=== PATIENT | female | born 1955 | race Caucasian/White ===

== ENCOUNTER → 2019-01-26 09:04 | Outpatient (CLI) | payer OTHER, SELFPAY ==
[2019-01-26 09:26] LABS: Add Manual Diff / Slide Review NO; Basophils Absolute Auto 0 /uL (0-100); Basophils Percent Auto 0.9 % (0-2); Eosinophils Absolute Auto 300 /uL (0-450); Eosinophils Percent Auto 8.2 % (2-4); Hematocrit 35.1 % (36-46); Hemoglobin 12.1 g/dL (12.0-16.0); Lymphocytes Absolute Auto 1400 /uL (1100-4500); Lymphocytes Percent Auto 38.1 % (25-40); Mean Corpuscular HGB Conc 34.5 % (30-36); Mean Corpuscular Hemoglobin 30.9 PG (26-34); Mean Corpuscular Volume 89.8 fL (80-100); Monocytes Absolute Auto 400 /uL (0-900); Monocytes Percent Auto 9.6 % (3-14); Neutrophils Absolute Auto 1600 /uL (1500-7000); Neutrophils Percent Auto 43.2 % (50-75); Platelet Count 184 X10^3/uL (150-400); Red Cell Distribution Width 12.9 % (11.6-14.8); White Blood Cell Count 3.7 X10^3/uL (4.5-11.0)
[2019-01-26 09:57] LABS: HEMOLYSIS < 15 (0-50); Iron 142 ug/dL (37-170)
[2019-01-26 10:00] LABS: BUN Creatinine Ratio 24.3 (6-22); Blood Urea Nitrogen 17 mg/dL (7-17); Calcium 9.5 mg/dL (8.4-10.2); Carbon Dioxide 29 mmol/L (22-32); Chloride 99 mmol/L (98-107); Estimated Glomerular Filt Rate > 60.0 mL/min (>60); Glucose 93 mg/dL (80-110); HEMOLYSIS < 15 (0-50); Potassium 4.2 mmol/L (3.4-5.1); Sodium 136 mmol/L (137-145)
[2019-01-26 10:08] LABS: Percent Iron Saturation 49 % (15-50); Total Iron Binding Capacity 291 ug/dL (265-497); Transferrin 246 mg/dL (206-381)
== END ==
PROVIDERS: PCP Physician Assistant; Visit Provider Physician Assistant
DX: D50.9 Iron deficiency anemia, unspecified (principal); F55.8 Abuse of other non-psychoactive substances
CPT/HCPCS: 36415; 80048; 82728; 83540; 83550; 85025

== ENCOUNTER → 2019-02-05 09:50 | Outpatient (CLI) | payer OTHER, SELFPAY ==
--- NOTE | 2019-02-05 | DI.MG.S_ITS ---
BILATERAL DIGITAL SCREENING MAMMOGRAM 3D/2D WITH CAD: 02/05/2019 CLINICAL: Routine screening. Family history of breast cancer. Comparison is made to exams dated: 12/24/2017 mammogram, 11/21/2016 mammogram, and 10/12/2015 mammogram - [facility]. The tissue of both breasts is heterogeneously dense. This may lower the sensitivity of mammography. Current study was also evaluated with a Computer Aided Detection (CAD) system. No significant masses, calcifications, or other findings are seen in either breast. There has been no significant interval change. IMPRESSION: NEGATIVE There is no mammographic evidence of malignancy. A 1 year screening mammogram is recommended. This exam was interpreted at Station ID: [id number]. NOTE: For mammograms, a report in lay terms will be sent to the patient. Approximately 15% of breast malignancies will not be visualized mammographically. In the management of a palpable breast mass, a negative mammogram must not discourage biopsy of a clinically suspicious lesion. Electronically Signed By: Suman bethea/steffi:02/07/2019 08:37:49 letter sent: Normal Exam ACR BI-RADS Category 1: Negative [id number]
== END ==
PROVIDERS: PCP Physician Assistant; Visit Provider Physician Assistant
DX: Z12.31 Encounter for screening mammogram for malignant neoplasm of breast (principal); Z80.3 Family history of malignant neoplasm of breast
CPT/HCPCS: 77063; 77067

== ENCOUNTER 2019-12-13 08:15 | Outpatient (RCR) | payer OTHER, SELFPAY ==
--- NOTE | 2019-07-12 15:46 | PT.OIE ---
Current Diagnoses Radiculopathy, lumbar region (07/12/19) Encounter for surgical aftercare following surgery on the nervous system (07/12/19) Past Surgical History Status post surgery (07/21/09) Visit Care Team Role Provider Type Erinn Gresham PA-C Primary Care Provider Advanced Java Web User Interface Developer Specialty: Medical Address: [facility] [place] [address], [address], [place], [address] Email: [email or web address] Lin Armijo PA-C Attending Provider Non-Staff Specialty: Nursing Address: [address] [place] [address], [address], [place], [address] Email: Physical Therapy Initial Evaluation PT-OP-A Visit Information Start: 07/12/19 13:55 Freq: Status: Active Protocol: Document 07/12/19 13:00 (Rec: 07/12/19 14:30 [email or web address]) Out-Patient Physical Therapy Visit Information Visit Information Visit Type Initial Evaluation Visit Note Pt's next MD appointment = Visit Start Time 13:00 Visit Stop Time 13:45 Total Visit Minutes 45 Visit Number Number of LENS GRINDER Visits 0 Evaluation Information Evaluation Date 07/12/19 Precautions Precautions LATEX ALLERGY L frozen shoulder No Bending Lifting Twisting for 6 weeks (06/02), log roll for bed mobility PT-OP-B Current Condition Start: 07/12/19 13:55 Freq: Status: Active Protocol: Document 07/12/19 13:00 (Rec: 07/12/19 14:30 [email or web address]) Current Condition History of Current Condition Onset Date Jun 02, 2019 Current Complaints s/p R L1-L2 partial laminectomy, LBP, radiating pain to R LE History of Current Condition Pt is a 64 yo female who presents to clinic today s/p s /p R L1-L2 partial laminectomy on 06/02/19 (5 1/2 weeks ago) at with Dr. Alonso. Pt currently follows do deep bending/ twisting/ heavy lifting until 6 weeks post op. Pt stated her back pain and radiating RLE pain started from this December after she was lifting a ~60lbs object by twisting her back without taking steps. She is currently having ~7/10 pain in a daily basis which aggravated by staying in one position ( standing/sitting) for >15 mins . Changing position usually helps her symptoms but it affects her ability to focus on her current task at work. Pt does know all precautions and able to follow them safely since sx. She is currently in a transition to reduce her pain med from oxycodone (daily ) to tramadol. She also has hx of chronic LBP with L4-L5 fusion in 2014, and she stated that Dr. Alonso suggested she might need another back surgery if this one with PT fails Future Testing and Treatments Planned Dr. Alonso suggested she might need another back surgery if this one with PT fails Treatment Goals Patient/Caregiver Goals 1. 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 To improve her core strength 3. 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 To be able to sail with her boat without pain. Prior Functional Status Baseline Function- ADL's Independent Baseline Function- Mobility Independent Baseline Function- Work/School able to sit/stand >1 hour Baseline Function- Recreation/Hobbies able to lift objects > 50 lbs without pain Current Functional Impairments (Reported) Functional Limitations- ADL's No Bending Lifting Twisting for 6 weeks (06/02), log roll for bed mobility Functional Limitations- Work/School unable to sit / stand > 15 minutes without increased pain Functional Limitations- Recreation/ unable to sail due to LBP/ Hobbies gardening PT-OP-C Subjective Start: 07/12/19 13:55 Freq: Status: Active Protocol: Document 07/12/19 13:00 (Rec: 07/12/19 14:30 [email or web address]) OP-PT Subjective Patient Comments Patient Comments I want to get my core stronger Patient Questionnaires Oswestry Low Back Index Oswestry Score 56 Oswestry Impairment 40 to 59% Impaired (Score 40- 59) OP-PT Pain Assessment Location R lower back Intensity 6 Scale Used Numeric (1 - 10) Description Aching,Dull Frequency Constant Pain Aggravating Factors Standing,Sitting,Bending, Lifting Pain Alleviating Factors Inactivity,Lying Supine PT-OP-D Balance Start: 07/12/19 13:55 Freq: Status: Active Protocol: Document 07/12/19 13:00 (Rec: 07/12/19 14:30 HH [email or web address]) Balance Tests Single Limb Standing Single Limb- Right >30 s Single Limb- Left >30 s Other Other Balance Tests Performed increase R lateral shift and increased R leg pain during SLS on R PT-OP-E Functional Tests Start: 07/12/19 13:55 Freq: Status: Active Protocol: Document 07/12/19 13:00 HH (Rec: 07/12/19 15:46 HH [email or web address]) Functional Tests Five Times Sit to Stand Test Score 21 PT-OP-F Manual Assessment Start: 07/12/19 13:55 Freq: Status: Active Protocol: Document 07/12/19 13:00 HH (Rec: 07/12/19 14:30 HH [email or web address]) Manual Assessments Soft Tissue Assessment Soft Tissue Mobility Assessment significant tenderness to pressure below R SIJ and piriformis PT-OP-H Neuro Start: 07/12/19 13:55 Freq: Status: Active Protocol: Document 07/12/19 13:00 HH (Rec: 07/12/19 14:30 [email or web address]) Sensation Evaluation Gross Sensation Gross Sensation Right LE Impaired Dermatome Impairments L5,S1 Comments Summary Comments decreased sensation to LT and pressure at lateral lower leg and R big toe. Deep Tendon Reflex & Clonus Assessment Deep Tendon Reflex Bilateral Achilles Deep Tendon Reflex 1+ Diminished Bilateral Patellar Deep Tendon Reflex 1+ Diminished PT-OP-J Posture/Palpation/Skin Start: 07/12/19 13:55 Freq: Status: Active Protocol: Document 07/12/19 13:00 HH (Rec: 07/12/19 14:30 [email or web address]) Posture Evaluation Position Standing Evaluation View Lateral T-Spine Posture Increased Kyphosis L-Spine Posture Increased Lordosis Weight Distribution Weight Shifted Anterior PT-OP-M Strength Start: 07/12/19 13:55 Freq: Status: Active Protocol: Document 07/12/19 13:00 HH (Rec: 07/12/19 14:30 [email or web address]) Hip Strength Hip Manual Muscle Testing Left Flexion (L2) 4+ Good+ Extension (S1) 4 Good Abduction 4+ Good+ Adduction 4+ Good+ External Rotation 4+ Good+ Internal Rotation 4+ Good+ Right Flexion (L2) 4- Good- Extension (S1) 3+ Fair+ Abduction 3+ Fair+ Adduction 4 Good External Rotation 3+ Fair+ Internal Rotation 3+ Fair+ Knee Strength Knee Manual Muscle Testing Left Flexion (S2) 4+ Good+ Extension (L3) 4+ Good+ Right Flexion (S2) 3+ Fair+ Extension (L3) 4 Good Comments increased R back pain during resisted R knee flexion Ankle/Foot Strength Ankle and Foot Manual Muscle Testing Left Dorsiflexion (L4) 4+ Good+ Plantarflexion (S1) 4+ Good+ Inversion 4+ Good+ Eversion (S1) 4+ Good+ Right Dorsiflexion (L4) 4- Good- Plantarflexion (S1) 4- Good- Inversion 4 Good Eversion (S1) 4 Good PT-OP-T Assessment and Plan Start: 07/12/19 13:55 Freq: Status: Active Protocol: Document 07/12/19 13:00 HH (Rec: 07/12/19 14:30 HH [email or web address]) Physical Therapy Assessment Rehab Potential Rehabilitation Potential Good Evaluation Complexity Number of Personal Factors/Comorbidities 1-2 Number of Body Systems Impaired 1-2 Clinical Presentation at Evaluation Stable Impairments Impairments Activity Tolerance,Balance, Functional Activities, Functional Mobility,Gait,Pain, Posture,ROM,Sensation,Soft Tissue Mobility,Strength,Tone, Transfers Goals Return to hobby Impairment Pt is currently unable to do gardening work due to LBP Short Term Goal (STG) Pt will be able to start gardening >10 mins without increased LBP. STG Duration 5 weeks Shelter Goal (LTG) Pt will be able to start gardening >20 mins without increased LBP. 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 LTG Duration 10 weeks activity tolerance Impairment Pt has increased LBP with sitting/ standing >15 mins Short Term Goal (STG) Pt will have no more than >5/ 10 LBP for sitting/ standing > 15 mins STG Duration 5 weeks Automatic Folder Seamer Goal (LTG) Pt will have no more than >3/ 10 LBP for sitting/ standing > 30 mins LTG Duration 10 weeks Oswestry LBP Impairment Pt scores 56 (40-59% impairment) on Oswestry LBP questionnaire Short Term Goal (STG) Pt will score <40 (20-39% impairment) on Oswestry LBP questionnaire Shelter Goal (LTG) Pt will score <20 (1-19% impairment) on Oswestry LBP questionnaire to improve her quality of life LTG Duration 10 weeks Assessment Summary Assessment Pt is a 64 yo female who presents to clinic today s/p R L1-L2 partial laminectomy on 06/02/[address] Alonso . She also has hx of chronic LBP with L4-L5 fusion in 2014. Pt is currently post op 5 1/2 weeks and still follows post op surgical precaution with no deep bending, lifting and twisting. Pt is going to see his surgeon on 07/14 for follow up. Upon assessment, pt still c/o radiating pain to lateral aspect of her RLE and localized pain below R SIJ. Decreased sensitivity to light touch and pressure noted at distal L5-S1 dermatome region, along with decreased R LE strength (3+ to 4-) grossly. Pt demonstrates poor hip stability during single leg stance test (with excessively lateral weight shift and ipsilateral hip drop). Pt's back pain was also reproduced during active straight leg raise and hip extension which indicates her poor trunk and core stability. Pt will benefit from skilled therapy to improve her trunk mobility post surgically, R LE strength , core and trunk stability to improve her quality of life. Physical Therapy Plan Frequency and Duration Frequency of Treatment 2x/Week Duration of Treatment 10 weeks Plan of Care Start Date 07/12/19 Plan of Care End Date 09/25/19 Therapeutic Interventions Therapeutic Interventions Balance Training,Gait Training ,Home Exercise Program,Joint Mobilizations,Manual Therapy, Neuromuscular Re-education, Patient/Caregiver Education, Self-Care/Home Management,Soft Tissue Mobilization,Taping, Therapeutic Activities, Therapeutic Exercises Modalities Cold Pack/Ice Massage,Electric Stimulation,Hot Packs, Infrared Therapy,Iontophoresis ,Traction- Mechanical, Ultrasound Next Visit Focus/Plan Next Note Type Treatment Note Next Visit Plan f/u with pt's appt with surgeon check hip IR and ER assess trunk ROM next visit ( >6 weeks) gentle trunk ROM as cesia B hip stability training and strengthening as cesia NM layton on core stability during single leg stance.
--- NOTE | 2019-07-20 17:36 | PT.OTN ---
Current Diagnoses Radiculopathy, lumbar region (07/20/19) Encounter for surgical aftercare following surgery on the nervous system (07/20/19) Physical Therapy Treatment Note PT-OP-A Visit Information Start: 07/12/19 13:55 Freq: Status: Active Protocol: Document 07/20/19 16:50 DCW (Rec: 07/20/19 17:35 DCW [id number]) Out-Patient Physical Therapy Visit Information Visit Information Visit Type Treatment Note Visit Start Time 16:50 Visit Stop Time 17:40 Total Visit Minutes 50 Visit Number 2/54 Number of RAILCAR SWITCHER Visits 0 Evaluation Information Evaluation Date 07/12/19 Precautions Precautions LATEX ALLERGY L frozen shoulder No Bending Lifting Twisting for 6 weeks (06/02), log roll for bed mobility PT-OP-B Current Condition Start: 07/12/19 13:55 Freq: Status: Active Protocol: Document 07/12/19 13:00 HH (Rec: 07/12/19 14:30 HH [email or web address]) Current Condition History of Current Condition Onset Date Jun 02, 2019 Current Complaints s/p R L1-L2 partial laminectomy, LBP, radiating pain to R LE History of Current Condition Pt is a 64 yo female who presents to clinic today s/p s /p R L1-L2 partial laminectomy on 06/02/19 (5 1/2 weeks ago) at with Dr. Alonso. Pt currently follows do deep bending/ twisiting/ heavy lifting until 6 weeks post op. Pt stated her back pain and radiating RLE pain started from this December after she was lifting a ~60lbs object by twisting her back without taking steps. She is currently having ~7/10 pain in a daily basis which aggravated by staying in one position ( standing/sitting) for >15 mins . Changing position usually helps her symptoms but it affects her ability to focus on her current task at work. Pt does know all precautions and able to follow them safely since sx. She is currently in a tansitiont to reduce her pain med from oxycodone (daily ) to tramadol. She also has hx of chronic LBP with L4-L5 fusion in 2014, and she stated that Dr. Alonso suggested she might need another back surgery if this one with PT fails Future Testing and Treatments Planned Dr. Alonso suggested she might need another back surgery if this one with PT fails Treatment Goals Patient/Caregiver Goals 1. 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 To be able to sail with her boat without pain. Prior Functional Status Baseline Function- ADL's Independent Baseline Function- Mobility Independent Baseline Function- Work/School able to sit/stand >1 hour Baseline Function- Recreation/Hobbies able to lift objects > 50 lbs without pain Current Functional Impairments (Reported) Functional Limitations- ADL's No Bending Lifting Twisting for 6 weeks (06/02), log roll for bed mobility Functional Limitations- Work/School unable to sit / stand > 15 minutes without increased pain Functional Limitations- Recreation/ unable to sail due to LBP/ Hobbies gardening PT-OP-C Subjective Start: 07/12/19 13:55 Freq: Status: Active Protocol: Document 07/20/19 16:50 DCW (Rec: 07/20/19 17:35 DCW [id number]) OP-PT Subjective Patient Comments Patient Comments Pt reports she was sore at her follow-up appointment with her Ortho, admits that they weren't happy that she was back to work and she was doing too much. Still having pain down her right foot, notes that she was put on 4 days of bedrest, and was told to not let her PTs overdo it with her. PT-OP-D Balance Start: 07/12/19 13:55 Freq: Status: Active Protocol: Document 07/12/19 13:00 HH (Rec: 07/12/19 14:30 HH [email or web address]) Balance Tests Single Limb Standing Single Limb- Right >30 s Single Limb- Left >30 s Other Other Balance Tests Performed increase R lateral shift and increased R leg pain during SLS on R PT-OP-E Functional Tests Start: 07/12/19 13:55 Freq: Status: Active Protocol: Document 07/12/19 13:00 HH (Rec: 07/12/19 15:46 HH [email or web address]) Functional Tests Five Times Sit to Stand Test Score 21 PT-OP-F Manual Assessment Start: 07/12/19 13:55 Freq: Status: Active Protocol: Document 07/12/19 13:00 HH (Rec: 07/12/19 14:30 HH [email or web address]) Manual Assessments Soft Tissue Assessment Soft Tissue Mobility Assessment significant tenderness to pressure below R SIJ and piriformis PT-OP-H Neuro Start: 07/12/19 13:55 Freq: Status: Active Protocol: Document 07/12/19 13:00 HH (Rec: 07/12/19 14:30 HH [email or web address]) Sensation Evaluation Gross Sensation Gross Sensation Right LE Impaired Dermatome Impairments L5,S1 Comments Summary Comments decreased sensation to LT and pressure at lateral lower leg and R big toe. Deep Tendon Reflex & Clonus Assessment Deep Tendon Reflex Bilateral Achilles Deep Tendon Reflex 1+ Diminished Bilateral Patellar Deep Tendon Reflex 1+ Diminished PT-OP-J Posture/Palpation/Skin Start: 07/12/19 13:55 Freq: Status: Active Protocol: Document 07/12/19 13:00 HH (Rec: 07/12/19 14:30 HH [email or web address]) Posture Evaluation Position Standing Evaluation View Lateral T-Spine Posture Increased Kyphosis L-Spine Posture Increased Lordosis Weight Distribution Weight Shifted Anterior PT-OP-M Strength Start: 07/12/19 13:55 Freq: Status: Active Protocol: Document 07/12/19 13:00 HH (Rec: 07/12/19 14:30 HH [email or web address]) Hip Strength Hip Manual Muscle Testing Left Flexion (L2) 4+ Good+ Extension (S1) 4 Good Abduction 4+ Good+ Adduction 4+ Good+ External Rotation 4+ Good+ Internal Rotation 4+ Good+ Right Flexion (L2) 4- Good- Extension (S1) 3+ Fair+ Abduction 3+ Fair+ Adduction 4 Good External Rotation 3+ Fair+ Internal Rotation 3+ Fair+ Knee Strength Knee Manual Muscle Testing Left Flexion (S2) 4+ Good+ Extension (L3) 4+ Good+ Right Flexion (S2) 3+ Fair+ Extension (L3) 4 Good Comments increased R back pain during resisted R knee flexion Ankle/Foot Strength Ankle and Foot Manual Muscle Testing Left Dorsiflexion (L4) 4+ Good+ Plantarflexion (S1) 4+ Good+ Inversion 4+ Good+ Eversion (S1) 4+ Good+ Right Dorsiflexion (L4) 4- Good- Plantarflexion (S1) 4- Good- Inversion 4 Good Eversion (S1) 4 Good PT-OP-Q Treatments Start: 07/12/19 13:55 Freq: Status: Active Protocol: Document 07/20/19 16:50 DCW (Rec: 07/20/19 17:35 DCW [id number]) Cardio Equipment Recumbent Elliptical (Biodex) Duration (Minutes) 5 Resistance 4 Seat Position 9 Gym Equipment Shuttle Recovery Unilateral Squats Resistance 37# Shuttle Recovery Platform Stable Bilateral Squats Resistance 75# Shuttle Recovery Platform Stable Therapeutic Ball Hip Flexion/Extension Exercise Details Hip/Knee flexion and extension /c feet on ball Ball Size/Color Blue - 45 cm Body Position Supine Lower Trunk Rotation Exercise Details Lower trunk rotation Ball Size/Color Blue - 45 cm Body Position Supine Comments Minimal Therapeutic Exercises Supine Exercises Piriformis Stretch Supine Exercise Name Mkiy-fh-qiehreqy shoulder Side right Comments Stopped d/t leg tingling PPT /c Marching Supine Exercise Name PPT /c TrA contraction - Marching PPT /c TrA Supine Exercise Name PPT /c TrA contraction Reps/Minutes 5 hold PT-OP-R Modalities Start: 07/12/19 13:55 Freq: Status: Active Protocol: Document 07/20/19 16:50 DCW (Rec: 07/20/19 17:36 DCW [id number]) Electric Stimulation Electric Stimulation Functional Electric Stimulation Body Location Lumbar Spine Duration (Minutes) 15 Patient Position Hooklying Combined With Heat/Cold Hot Pack PT-OP-T Assessment and Plan Start: 07/12/19 13:55 Freq: Status: Active Protocol: Document 07/20/19 16:50 DCW (Rec: 07/20/19 17:35 DCW [id number]) Physical Therapy Assessment Impairments Impairments Activity Tolerance,Balance, Functional Activities, Functional Mobility,Gait,Pain, Posture,ROM,Sensation,Soft Tissue Mobility,Strength,Tone, Transfers Goals Return to hobby Impairment Pt is currently unable to do gardening work due to LBP Short Term Goal (STG) Pt will be able to start gardening >10 mins without increased LBP. STG Duration 5 weeks [facility] Goal (LTG) Pt will be able to start gardening >20 mins without increased LBP. LTG Duration 10 weeks strength Impairment Pt demonstrates significant R LE weakness Short Term Goal (STG) Pt will be able to improve her RLE strength by 1/2 MMT grade [facility] Goal (LTG) Pt will be able to improve her overall RLE strength by 1 MMT grade so she can bend over to nut picker object >20 lbs from low surface without increased pain. LTG Duration 10 weeks activity tolerance Impairment Pt has increased LBP with sitting/ standing >15 mins Short Term Goal (STG) Pt will have no more than >5/ 10 LBP for sitting/ standing > 15 mins STG Duration 5 weeks [facility] Goal (LTG) Pt will have no more than >3/ 10 LBP for sitting/ standing > 30 mins LTG Duration 10 weeks Oswestry LBP Impairment Pt scores 56 (40-59% impairment) on Oswestry LBP questionnaire Short Term Goal (STG) Pt will score <40 (20-39% impairment) on Oswestry LBP questionnaire Lens Grinder And Polisher Goal (LTG) Pt will score <20 (1-19% impairment) on Oswestry LBP questionnaire to improve her quality of life LTG Duration 10 weeks Assessment Summary Assessment Took it very easy on pt today per instructions fromher surgeon. Attempted mild core strengthening and mobility exercises. Physical Therapy Plan Frequency and Duration Frequency of Treatment 2x/Week Duration of Treatment 10 weeks Plan of Care Start Date 07/12/19 Plan of Care End Date 09/25/19 Therapeutic Interventions Therapeutic Interventions Balance Training,Gait Training ,Home Exercise Program,Joint Mobilizations,Manual Therapy, Neuromuscular Re-education, Patient/Caregiver Education, Self-Care/Home Management,Soft Tissue Mobilization,Taping, Therapeutic Activities, Therapeutic Exercises Modalities Cold Pack/Ice Massage,Electric Stimulation,Hot Packs, Infrared Therapy,Iontophoresis ,Traction- Mechanical, Ultrasound Next Visit Focus/Plan Next Note Type Treatment Note Next Visit Plan check hip IR and ER assess trunk ROM next visit ( >6 weeks) gentle trunk ROM as cesia B hip stability training and strengthening as cesia NM layton on core stability during single leg stance.
--- NOTE | 2019-07-27 15:28 | PT.OTN ---
Current Diagnoses Radiculopathy, lumbar region (07/27/19) Encounter for surgical aftercare following surgery on the nervous system (07/27/19) Physical Therapy Treatment Note PT-OP-A Visit Information Start: 07/12/19 13:55 Freq: Status: Active Protocol: Document 07/27/19 13:00 HH (Rec: 07/27/19 14:10 [id number]) Out-Patient Physical Therapy Visit Information Visit Information Visit Type Treatment Note Visit Start Time 13:00 Visit Stop Time 13:46 Total Visit Minutes 46 Visit Number 3/54 Number of CIVIL PROJECT ENGINEER Visits 0 PT-OP-B Current Condition Start: 07/12/19 13:55 Freq: Status: Active Protocol: Document 07/12/19 13:00 HH (Rec: 07/12/19 14:30 [email or web address]) Current Condition History of Current Condition Onset Date Jun 02, 2019 Current Complaints s/p R L1-L2 partial laminectomy, LBP, radiating pain to R LE History of Current Condition Pt is a 64 yo female who presents to clinic today s/p s /p R L1-L2 partial laminectomy on 06/02/19 (5 1/2 weeks ago) at with Dr. Alonso. Pt currently follows do deep bending/ twisiting/ heavy lifting until 6 weeks post op. Pt stated her back pain and radiating RLE pain started from this December after she was lifting a ~60lbs object by twisting her back without taking steps. She is currently having ~7/10 pain in a daily basis which aggravated by staying in one position ( standing/sitting) for >15 mins . Changing position usually helps her symptoms but it affects her ability to focus on her current task at work. Pt does know all precautions and able to follow them safely since sx. She is currently in a tansitiont to reduce her pain med from oxycodone (daily ) to tramadol. She also has hx of chronic LBP with L4-L5 fusion in 2014, and she stated that Dr. Alonso suggested she might need another back surgery if this one with PT fails Future Testing and Treatments Planned Dr. Alonso suggested she might need another back surgery if this one with PT fails Treatment Goals Patient/Caregiver Goals 1. 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 To improve her core strength 3. To sit/training associate one positiont > 15 mins without increased pain 4. To be able to sail with her boat without pain. Prior Functional Status Baseline Function- ADL's Independent Baseline Function- Mobility Independent Baseline Function- Work/School able to sit/stand >1 hour Baseline Function- Recreation/Hobbies able to lift objects > 50 lbs without pain Current Functional Impairments (Reported) Functional Limitations- ADL's No Bending Lifting Twisting for 6 weeks (06/02), log roll for bed mobility Functional Limitations- Work/School unable to sit / stand > 15 minutes without increased pain Functional Limitations- Recreation/ unable to sail due to LBP/ Hobbies gardening PT-OP-C Subjective Start: 07/12/19 13:55 Freq: Status: Active Protocol: Document 07/27/19 13:00 HH (Rec: 07/27/19 14:10 [id number]) OP-PT Subjective Patient Comments Patient Comments I still have some tingling and numbness down to my R foot . My work has been modified to less physical now as well. So im doing okay PT-OP-D Balance Start: 07/12/19 13:55 Freq: Status: Active Protocol: Document 07/12/19 13:00 HH (Rec: 07/12/19 14:30 [email or web address]) Balance Tests Single Limb Standing Single Limb- Right >30 s Single Limb- Left >30 s Other Other Balance Tests Performed increase R lateral shift and increased R leg pain during SLS on R PT-OP-E Functional Tests Start: 07/12/19 13:55 Freq: Status: Active Protocol: Document 07/12/19 13:00 HH (Rec: 07/12/19 15:46 [email or web address]) Functional Tests Five Times Sit to Stand Test Score 21 PT-OP-F Manual Assessment Start: 07/12/19 13:55 Freq: Status: Active Protocol: Document 07/12/19 13:00 HH (Rec: 07/12/19 14:30 [email or web address]) Manual Assessments Soft Tissue Assessment Soft Tissue Mobility Assessment significant tenderness to pressure below R SIJ and piriformis PT-OP-H Neuro Start: 07/12/19 13:55 Freq: Status: Active Protocol: Document 07/12/19 13:00 HH (Rec: 07/12/19 14:30 [email or web address]) Sensation Evaluation Gross Sensation Gross Sensation Right LE Impaired Dermatome Impairments L5,S1 Comments Summary Comments decreased sensation to LT and pressure at lateral lower leg and R big toe. Deep Tendon Reflex & Clonus Assessment Deep Tendon Reflex Bilateral Achilles Deep Tendon Reflex 1+ Diminished Bilateral Patellar Deep Tendon Reflex 1+ Diminished PT-OP-J Posture/Palpation/Skin Start: 07/12/19 13:55 Freq: Status: Active Protocol: Document 07/12/19 13:00 (Rec: 07/12/19 14:30 [email or web address]) Posture Evaluation Position Standing Evaluation View Lateral T-Spine Posture Increased Kyphosis L-Spine Posture Increased Lordosis Weight Distribution Weight Shifted Anterior PT-OP-M Strength Start: 07/12/19 13:55 Freq: Status: Active Protocol: Document 07/12/19 13:00 (Rec: 07/12/19 14:30 [email or web address]) Hip Strength Hip Manual Muscle Testing Left Flexion (L2) 4+ Good+ Extension (S1) 4 Good Abduction 4+ Good+ Adduction 4+ Good+ External Rotation 4+ Good+ Internal Rotation 4+ Good+ Right Flexion (L2) 4- Good- Extension (S1) 3+ Fair+ Abduction 3+ Fair+ Adduction 4 Good External Rotation 3+ Fair+ Internal Rotation 3+ Fair+ Knee Strength Knee Manual Muscle Testing Left Flexion (S2) 4+ Good+ Extension (L3) 4+ Good+ Right Flexion (S2) 3+ Fair+ Extension (L3) 4 Good Comments increased R back pain during resisted R knee flexion Ankle/Foot Strength Ankle and Foot Manual Muscle Testing Left Dorsiflexion (L4) 4+ Good+ Plantarflexion (S1) 4+ Good+ Inversion 4+ Good+ Eversion (S1) 4+ Good+ Right Dorsiflexion (L4) 4- Good- Plantarflexion (S1) 4- Good- Inversion 4 Good Eversion (S1) 4 Good PT-OP-Q Treatments Start: 07/12/19 13:55 Freq: Status: Active Protocol: Document 07/27/19 13:00 (Rec: 07/27/19 14:10 [id number]) Cardio Equipment Recumbent Stepper (Sci-Fit) Duration (Minutes) 6 Resistance 2 Therapeutic Exercises Supine Exercises Figure 4 stretch Side right Comments stopped d/t leg tingling Piriformis Stretch Supine Exercise Name Wsil-go-ncfjugkp shoulder Side right PPT /c Marching Supine Exercise Name PPT /c TrA contraction - Marching PPT /c TrA Supine Exercise Name PPT /c TrA contraction Reps/Minutes 5 hold Sitting Exercises Ball reach Side bilateral Equipment Used red ex ball Reps/Minutes 3x10 Comments R/L/central Standing Exercises step up Side bilateral Reps/Minutes 3 min Comments no significant deficits noted. SLS Standing Exercise Name as long as possible Side bilateral Reps/Minutes 30 sec B Comments no deficits noted. Manual Therapy Treatment Soft Tissue Mobilization R paraspinals Mobilization Type Sustained Pressure,Trigger Point Release Intensity/Depth Superficial Body Position Sidelying R piriformis Mobilization Type Sustained Pressure,Trigger Point Release Intensity/Depth Superficial Body Position Sidelying Comments with active clam shell Nerve Glides supine sciatic nerve glide Nerve sciatic nerve Body Position Supine Reps/Duration 10 x2 Comments knee extension only before symptoms worsened. PT-OP-R Modalities Start: 07/12/19 13:55 Freq: Status: Active Protocol: Document 07/27/19 13:00 HH (Rec: 07/27/19 14:10 [id number]) Electric Stimulation Electric Stimulation Functional Electric Stimulation Body Location Lumbar Spine Duration (Minutes) 15 Patient Position Hooklying Combined With Heat/Cold Hot Pack PT-OP-T Assessment and Plan Start: 07/12/19 13:55 Freq: Status: Active Protocol: Document 07/27/19 13:00 HH (Rec: 07/27/19 14:10 [id number]) Physical Therapy Assessment Impairments Impairments Activity Tolerance,Balance, Functional Activities, Functional Mobility,Gait,Pain, Posture,ROM,Sensation,Soft Tissue Mobility,Strength,Tone, Transfers Goals Return to hobby Impairment Pt is currently unable to do gardening work due to LBP Short Term Goal (STG) Pt will be able to start gardening >10 mins without increased LBP. STG Duration 5 weeks Wire Mesh Gate Assembler Goal (LTG) Pt will be able to start gardening >20 mins without increased LBP. LTG Duration 10 weeks strength Impairment Pt demonstrates significant R LE weakness Short Term Goal (STG) Pt will be able to improve her RLE strength by 1/2 MMT grade Wire Mesh Gate Assembler Goal (LTG) Pt will be able to improve her overall RLE strength by 1 MMT grade so she can bend over to brick picker object >20 lbs from low surface without increased pain. LTG Duration 10 weeks activity tolerance Impairment Pt has increased LBP with sitting/ standing >15 mins Short Term Goal (STG) Pt will have no more than >5/ 10 LBP for sitting/ standing > 15 mins STG Duration 5 weeks Penitentiary Goal (LTG) Pt will have no more than >3/ 10 LBP for sitting/ standing > 30 mins LTG Duration 10 weeks Oswestry LBP Impairment Pt scores 56 (40-59% impairment) on Oswestry LBP questionnaire Short Term Goal (STG) Pt will score <40 (20-39% impairment) on Oswestry LBP questionnaire Penitentiary Goal (LTG) Pt will score <20 (1-19% impairment) on Oswestry LBP questionnaire to improve her quality of life LTG Duration 10 weeks Assessment Summary Assessment Pt reports cont R toe tingling and pain that goes up towards knee. Also notes cont R buttock pain with prolonged sitting and WB on RLE. Pt notes inc'd tingling during MT to address piriformis trigger point. Piriformis hypertonicity likely driving pt's cont complaint of R sciatic nerve irritation. HEP upgraded to include sciatic nerve glide, gentle piriformis stretch, and ball reaches to decrease sciatic nerve irritability. Physical Therapy Plan Frequency and Duration Frequency of Treatment 2x/Week Duration of Treatment 10 weeks Plan of Care Start Date 07/12/19 Plan of Care End Date 09/25/19 Therapeutic Interventions Therapeutic Interventions Balance Training,Gait Training ,Home Exercise Program,Joint Mobilizations,Manual Therapy, Neuromuscular Re-education, Patient/Caregiver Education, Self-Care/Home Management,Soft Tissue Mobilization,Taping, Therapeutic Activities, Therapeutic Exercises Modalities Cold Pack/Ice Massage,Electric Stimulation,Hot Packs, Infrared Therapy,Iontophoresis ,Traction- Mechanical, Ultrasound Next Visit Focus/Plan Next Note Type Treatment Note Next Visit Plan check hip IR and ER assess trunk ROM next visit ( >6 weeks) review HEP gentle trunk ROM ex in seated position/ supine/ SL B hip stability training and strengthening as cesia NM layton on core stability during single leg stance MT for piriformis TrP/ hypertonicity
--- NOTE | 2019-07-29 09:44 | PT.OTN ---
Current Diagnoses Radiculopathy, lumbar region (07/29/19) Encounter for surgical aftercare following surgery on the nervous system (07/29/19) Physical Therapy Treatment Note PT-OP-A Visit Information Start: 07/12/19 13:55 Freq: Status: Active Protocol: Document 07/29/19 09:00 DCW (Rec: 07/29/19 09:43 DCW [id number]) Out-Patient Physical Therapy Visit Information Visit Information Visit Type Treatment Note Visit Start Time 09:00 Visit Stop Time 09:55 Total Visit Minutes 55 Visit Number 4/54 Number of BELT OPERATOR Visits 0 Evaluation Information Evaluation Date 07/12/19 Precautions Precautions LATEX ALLERGY L frozen shoulder No Bending Lifting Twisting for 6 weeks (06/02), log roll for bed mobility PT-OP-B Current Condition Start: 07/12/19 13:55 Freq: Status: Active Protocol: Document 07/12/19 13:00 HH (Rec: 07/12/19 14:30 HH [email or web address]) Current Condition History of Current Condition Onset Date Jun 02, 2019 Current Complaints s/p R L1-L2 partial laminectomy, LBP, radiating pain to R LE History of Current Condition Pt is a 64 yo female who presents to clinic today s/p s /p R L1-L2 partial laminectomy on 06/02/19 (5 1/2 weeks ago) at with Dr. Alonso. Pt currently follows do deep bending/ twisiting/ heavy lifting until 6 weeks post op. Pt stated her back pain and radiating RLE pain started from this December after she was lifting a ~60lbs object by twisting her back without taking steps. She is currently having ~7/10 pain in a daily basis which aggravated by staying in one position ( standing/sitting) for >15 mins . Changing position usually helps her symptoms but it affects her ability to focus on her current task at work. Pt does know all precautions and able to follow them safely since sx. She is currently in a tansitiont to reduce her pain med from oxycodone (daily ) to tramadol. She also has hx of chronic LBP with L4-L5 fusion in 2014, and she stated that Dr. Alonso suggested she might need another back surgery if this one with PT fails Future Testing and Treatments Planned Dr. Alonso suggested she might need another back surgery if this one with PT fails Treatment Goals Patient/Caregiver Goals 1. 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 To improve her core strength 3. 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 To be able to sail with her boat without pain. Prior Functional Status Baseline Function- ADL's Independent Baseline Function- Mobility Independent Baseline Function- Work/School able to sit/stand >1 hour Baseline Function- Recreation/Hobbies able to lift objects > 50 lbs without pain Current Functional Impairments (Reported) Functional Limitations- ADL's No Bending Lifting Twisting for 6 weeks (06/02), log roll for bed mobility Functional Limitations- Work/School unable to sit / stand > 15 minutes without increased pain Functional Limitations- Recreation/ unable to sail due to LBP/ Hobbies gardening PT-OP-C Subjective Start: 07/12/19 13:55 Freq: Status: Active Protocol: Document 07/29/19 09:00 DCW (Rec: 07/29/19 09:43 DCW [id number]) OP-PT Subjective Patient Comments Patient Comments Pt reports that overall, she feels things are about the same, but woke up with some increased pain today in her right lateral leg, which is atypical, she normally feels pretty good in the morning. PT-OP-D Balance Start: 07/12/19 13:55 Freq: Status: Active Protocol: Document 07/12/19 13:00 HH (Rec: 07/12/19 14:30 HH [email or web address]) Balance Tests Single Limb Standing Single Limb- Right >30 s Single Limb- Left >30 s Other Other Balance Tests Performed increase R lateral shift and increased R leg pain during SLS on R PT-OP-E Functional Tests Start: 07/12/19 13:55 Freq: Status: Active Protocol: Document 07/12/19 13:00 HH (Rec: 07/12/19 15:46 HH [email or web address]) Functional Tests Five Times Sit to Stand Test Score 21 PT-OP-F Manual Assessment Start: 07/12/19 13:55 Freq: Status: Active Protocol: Document 07/12/19 13:00 HH (Rec: 07/12/19 14:30 HH [email or web address]) Manual Assessments Soft Tissue Assessment Soft Tissue Mobility Assessment significant tenderness to pressure below R SIJ and piriformis PT-OP-H Neuro Start: 07/12/19 13:55 Freq: Status: Active Protocol: Document 07/12/19 13:00 HH (Rec: 07/12/19 14:30 HH [email or web address]) Sensation Evaluation Gross Sensation Gross Sensation Right LE Impaired Dermatome Impairments L5,S1 Comments Summary Comments decreased sensation to LT and pressure at lateral lower leg and R big toe. Deep Tendon Reflex & Clonus Assessment Deep Tendon Reflex Bilateral Achilles Deep Tendon Reflex 1+ Diminished Bilateral Patellar Deep Tendon Reflex 1+ Diminished PT-OP-J Posture/Palpation/Skin Start: 07/12/19 13:55 Freq: Status: Active Protocol: Document 07/12/19 13:00 HH (Rec: 07/12/19 14:30 HH [email or web address]) Posture Evaluation Position Standing Evaluation View Lateral T-Spine Posture Increased Kyphosis L-Spine Posture Increased Lordosis Weight Distribution Weight Shifted Anterior PT-OP-M Strength Start: 07/12/19 13:55 Freq: Status: Active Protocol: Document 07/12/19 13:00 HH (Rec: 07/12/19 14:30 HH [email or web address]) Hip Strength Hip Manual Muscle Testing Left Flexion (L2) 4+ Good+ Extension (S1) 4 Good Abduction 4+ Good+ Adduction 4+ Good+ External Rotation 4+ Good+ Internal Rotation 4+ Good+ Right Flexion (L2) 4- Good- Extension (S1) 3+ Fair+ Abduction 3+ Fair+ Adduction 4 Good External Rotation 3+ Fair+ Internal Rotation 3+ Fair+ Knee Strength Knee Manual Muscle Testing Left Flexion (S2) 4+ Good+ Extension (L3) 4+ Good+ Right Flexion (S2) 3+ Fair+ Extension (L3) 4 Good Comments increased R back pain during resisted R knee flexion Ankle/Foot Strength Ankle and Foot Manual Muscle Testing Left Dorsiflexion (L4) 4+ Good+ Plantarflexion (S1) 4+ Good+ Inversion 4+ Good+ Eversion (S1) 4+ Good+ Right Dorsiflexion (L4) 4- Good- Plantarflexion (S1) 4- Good- Inversion 4 Good Eversion (S1) 4 Good PT-OP-Q Treatments Start: 07/12/19 13:55 Freq: Status: Active Protocol: Document 07/29/19 09:00 DCW (Rec: 07/29/19 09:43 DCW [id number]) Cardio Equipment Recumbent Elliptical (Biodex) Duration (Minutes) 5 Resistance 4 Seat Position 11 Gym Equipment Shuttle Recovery Unilateral Squats Resistance 37# Shuttle Recovery Platform Stable Bilateral Squats Resistance 75# Shuttle Recovery Platform Stable Therapeutic Ball Lower Trunk Rotation Exercise Details Lower trunk rotation Ball Size/Color Blue - 45 cm Body Position Supine Comments Minimal Therapeutic Exercises Supine Exercises PPT /c Air Bike Supine Exercise Name PPT /c Air Bicycle PPT /c Marching Supine Exercise Name PPT /c TrA contraction - Marching Sitting Exercises Ball reach Side bilateral Equipment Used red 75 cm ex ball Reps/Minutes 3x10 Comments R/L/central Manual Therapy Treatment Soft Tissue Mobilization R paraspinals Mobilization Type Sustained Pressure,Trigger Point Release Intensity/Depth Superficial Body Position Sidelying R piriformis Mobilization Type Sustained Pressure,Trigger Point Release Intensity/Depth Superficial Body Position Sidelying Comments with active clam shell PT-OP-R Modalities Start: 07/12/19 13:55 Freq: Status: Active Protocol: Document 07/29/19 09:00 DCW (Rec: 07/29/19 09:43 DCW [id number]) Electric Stimulation Electric Stimulation Functional Electric Stimulation Body Location Lumbar Spine Duration (Minutes) 15 Patient Position Hooklying Combined With Heat/Cold Hot Pack PT-OP-T Assessment and Plan Start: 07/12/19 13:55 Freq: Status: Active Protocol: Document 07/29/19 09:00 DCW (Rec: 07/29/19 09:43 DCW [id number]) Physical Therapy Assessment Impairments Impairments Activity Tolerance,Balance, Functional Activities, Functional Mobility,Gait,Pain, Posture,ROM,Sensation,Soft Tissue Mobility,Strength,Tone, Transfers Goals Return to hobby Impairment Pt is currently unable to do gardening work due to LBP Short Term Goal (STG) Pt will be able to start gardening >10 mins without increased LBP. STG Duration 5 weeks Netsuite Developer Goal (LTG) Pt will be able to start gardening >20 mins without increased LBP. LTG Duration 10 weeks strength Impairment Pt demonstrates significant R LE weakness Short Term Goal (STG) Pt will be able to improve her RLE strength by 1/2 MMT grade Netsuite Developer Goal (LTG) Pt will be able to improve her overall RLE strength by 1 MMT grade so she can bend over to machine pecan picker object >20 lbs from low surface without increased pain. LTG Duration 10 weeks activity tolerance Impairment Pt has increased LBP with sitting/ standing >15 mins Short Term Goal (STG) Pt will have no more than >5/ 10 LBP for sitting/ standing > 15 mins STG Duration 5 weeks Netsuite Developer Goal (LTG) Pt will have no more than >3/ 10 LBP for sitting/ standing > 30 mins LTG Duration 10 weeks Oswestry LBP Impairment Pt scores 56 (40-59% impairment) on Oswestry LBP questionnaire Short Term Goal (STG) Pt will score <40 (20-39% impairment) on Oswestry LBP questionnaire Netsuite Developer Goal (LTG) Pt will score <20 (1-19% impairment) on Oswestry LBP questionnaire to improve her quality of life LTG Duration 10 weeks Assessment Summary Assessment Pt reported some relief from her right leg tingling following piriformis STM. Reviewed self-mobilization using tennis ball. Pt doing better after decreasing work demands. Physical Therapy Plan Frequency and Duration Frequency of Treatment 2x/Week Duration of Treatment 10 weeks Plan of Care Start Date 07/12/19 Plan of Care End Date 09/25/19 Therapeutic Interventions Therapeutic Interventions Balance Training,Gait Training ,Home Exercise Program,Joint Mobilizations,Manual Therapy, Neuromuscular Re-education, Patient/Caregiver Education, Self-Care/Home Management,Soft Tissue Mobilization,Taping, Therapeutic Activities, Therapeutic Exercises Modalities Cold Pack/Ice Massage,Electric Stimulation,Hot Packs, Infrared Therapy,Iontophoresis ,Traction- Mechanical, Ultrasound Next Visit Focus/Plan Next Note Type Treatment Note Next Visit Plan Continue current POC, advance as tolerated B hip stability training and strengthening as cesia NM layton on core stability during single leg stance MT for piriformis TrP/ hypertonicity
--- NOTE | 2019-08-02 17:28 | PT.OTN ---
Current Diagnoses Radiculopathy, lumbar region (08/02/19) Encounter for surgical aftercare following surgery on the nervous system (08/02/19) Physical Therapy Treatment Note PT-OP-A Visit Information Start: 07/12/19 13:55 Freq: Status: Active Protocol: Document 08/02/19 16:50 DCW (Rec: 08/02/19 17:27 DCW [id number]) Out-Patient Physical Therapy Visit Information Visit Information Visit Type Treatment Note Visit Start Time 16:50 Visit Stop Time 17:40 Total Visit Minutes 50 Visit Number 5/54 Number of SHIRT TURNER Visits 0 Evaluation Information Evaluation Date 07/12/19 Precautions Precautions LATEX ALLERGY L frozen shoulder No Bending Lifting Twisting for 6 weeks (06/02), log roll for bed mobility PT-OP-B Current Condition Start: 07/12/19 13:55 Freq: Status: Active Protocol: Document 07/12/19 13:00 HH (Rec: 07/12/19 14:30 HH [email or web address]) Current Condition History of Current Condition Onset Date Jun 02, 2019 Current Complaints s/p R L1-L2 partial laminectomy, LBP, radiating pain to R LE History of Current Condition Pt is a 64 yo female who presents to clinic today s/p s /p R L1-L2 partial laminectomy on 06/02/19 (5 1/2 weeks ago) at with Dr. Alonso. Pt currently follows do deep bending/ twisiting/ heavy lifting until 6 weeks post op. Pt stated her back pain and radiating RLE pain started from this December after she was lifting a ~60lbs object by twisting her back without taking steps. She is currently having ~7/10 pain in a daily basis which aggravated by staying in one position ( standing/sitting) for >15 mins . Changing position usually helps her symptoms but it affects her ability to focus on her current task at work. Pt does know all precautions and able to follow them safely since sx. She is currently in a tansitiont to reduce her pain med from oxycodone (daily ) to tramadol. She also has hx of chronic LBP with L4-L5 fusion in 2014, and she stated that Dr. Alonso suggested she might need another back surgery if this one with PT fails Future Testing and Treatments Planned Dr. Alonso suggested she might need another back surgery if this one with PT fails Treatment Goals Patient/Caregiver Goals 1. 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 To improve her core strength 3. 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 To be able to sail with her boat without pain. Prior Functional Status Baseline Function- ADL's Independent Baseline Function- Mobility Independent Baseline Function- Work/School able to sit/stand >1 hour Baseline Function- Recreation/Hobbies able to lift objects > 50 lbs without pain Current Functional Impairments (Reported) Functional Limitations- ADL's No Bending Lifting Twisting for 6 weeks (06/02), log roll for bed mobility Functional Limitations- Work/School unable to sit / stand > 15 minutes without increased pain Functional Limitations- Recreation/ unable to sail due to LBP/ Hobbies gardening PT-OP-C Subjective Start: 07/12/19 13:55 Freq: Status: Active Protocol: Document 08/02/19 16:50 DCW (Rec: 08/02/19 17:27 DCW [id number]) OP-PT Subjective Patient Comments Patient Comments I'm pretty tired and sore after a full day of work. This might not be the best time for me to be coming in because of that, I just get caught up at work and forget to rest. PT-OP-D Balance Start: 07/12/19 13:55 Freq: Status: Active Protocol: Document 07/12/19 13:00 HH (Rec: 07/12/19 14:30 HH [email or web address]) Balance Tests Single Limb Standing Single Limb- Right >30 s Single Limb- Left >30 s Other Other Balance Tests Performed increase R lateral shift and increased R leg pain during SLS on R PT-OP-E Functional Tests Start: 07/12/19 13:55 Freq: Status: Active Protocol: Document 07/12/19 13:00 HH (Rec: 07/12/19 15:46 HH [email or web address]) Functional Tests Five Times Sit to Stand Test Score 21 PT-OP-F Manual Assessment Start: 07/12/19 13:55 Freq: Status: Active Protocol: Document 07/12/19 13:00 HH (Rec: 07/12/19 14:30 HH [email or web address]) Manual Assessments Soft Tissue Assessment Soft Tissue Mobility Assessment significant tenderness to pressure below R SIJ and piriformis PT-OP-H Neuro Start: 07/12/19 13:55 Freq: Status: Active Protocol: Document 07/12/19 13:00 HH (Rec: 07/12/19 14:30 HH [email or web address]) Sensation Evaluation Gross Sensation Gross Sensation Right LE Impaired Dermatome Impairments L5,S1 Comments Summary Comments decreased sensation to LT and pressure at lateral lower leg and R big toe. Deep Tendon Reflex & Clonus Assessment Deep Tendon Reflex Bilateral Achilles Deep Tendon Reflex 1+ Diminished Bilateral Patellar Deep Tendon Reflex 1+ Diminished PT-OP-J Posture/Palpation/Skin Start: 07/12/19 13:55 Freq: Status: Active Protocol: Document 07/12/19 13:00 HH (Rec: 07/12/19 14:30 HH [email or web address]) Posture Evaluation Position Standing Evaluation View Lateral T-Spine Posture Increased Kyphosis L-Spine Posture Increased Lordosis Weight Distribution Weight Shifted Anterior PT-OP-M Strength Start: 07/12/19 13:55 Freq: Status: Active Protocol: Document 07/12/19 13:00 HH (Rec: 07/12/19 14:30 [email or web address]) Hip Strength Hip Manual Muscle Testing Left Flexion (L2) 4+ Good+ Extension (S1) 4 Good Abduction 4+ Good+ Adduction 4+ Good+ External Rotation 4+ Good+ Internal Rotation 4+ Good+ Right Flexion (L2) 4- Good- Extension (S1) 3+ Fair+ Abduction 3+ Fair+ Adduction 4 Good External Rotation 3+ Fair+ Internal Rotation 3+ Fair+ Knee Strength Knee Manual Muscle Testing Left Flexion (S2) 4+ Good+ Extension (L3) 4+ Good+ Right Flexion (S2) 3+ Fair+ Extension (L3) 4 Good Comments increased R back pain during resisted R knee flexion Ankle/Foot Strength Ankle and Foot Manual Muscle Testing Left Dorsiflexion (L4) 4+ Good+ Plantarflexion (S1) 4+ Good+ Inversion 4+ Good+ Eversion (S1) 4+ Good+ Right Dorsiflexion (L4) 4- Good- Plantarflexion (S1) 4- Good- Inversion 4 Good Eversion (S1) 4 Good PT-OP-Q Treatments Start: 07/12/19 13:55 Freq: Status: Active Protocol: Document 08/02/19 16:50 DCW (Rec: 08/02/19 17:27 DCW [id number]) Cardio Equipment Recumbent Elliptical (Biodex) Duration (Minutes) 5 Resistance 4 Seat Position 8 Gym Equipment Shuttle Recovery Unilateral Squats Resistance 37# Shuttle Recovery Platform Stable Bilateral Squats Resistance 75# Shuttle Recovery Platform Stable Therapeutic Ball Hip Flexion/Extension Exercise Details Hip/Knee flexion and extension /c feet on ball vs T-ball resistance Ball Size/Color Blue - 45 cm Lv 2 T-band Body Position Supine Lower Trunk Rotation Exercise Details Lower trunk rotation Ball Size/Color Blue - 45 cm Body Position Supine Comments Minimal Therapeutic Exercises Sitting Exercises Ball reach Side bilateral Equipment Used red 75 cm ex ball Reps/Minutes 3x15 Comments R/L/central Other Exercises Resisted Ambulation Other Exercise Name Side-stepping, Fwd, Bkwd Resistance Green Equipment Used T-band Manual Therapy Treatment Soft Tissue Mobilization R ITB Mobilization Type Sustained Pressure,Trigger Point Release Body Position Sidelying R paraspinals Mobilization Type Sustained Pressure,Trigger Point Release Intensity/Depth Superficial Body Position Sidelying R piriformis Mobilization Type Sustained Pressure,Trigger Point Release Intensity/Depth Superficial Body Position Sidelying Comments with active clam shell PT-OP-R Modalities Start: 07/12/19 13:55 Freq: Status: Active Protocol: Document 08/02/19 16:50 DCW (Rec: 08/02/19 17:27 DCW [id number]) Electric Stimulation Electric Stimulation Functional Electric Stimulation Body Location Lumbar Spine Duration (Minutes) 15 Patient Position Hooklying Combined With Heat/Cold Hot Pack PT-OP-T Assessment and Plan Start: 07/12/19 13:55 Freq: Status: Active Protocol: Document 08/02/19 16:50 DCW (Rec: 08/02/19 17:27 DCW [id number]) Physical Therapy Assessment Impairments Impairments Activity Tolerance,Balance, Functional Activities, Functional Mobility,Gait,Pain, Posture,ROM,Sensation,Soft Tissue Mobility,Strength,Tone, Transfers Goals Return to hobby Impairment Pt is currently unable to do gardening work due to LBP Short Term Goal (STG) Pt will be able to start gardening >10 mins without increased LBP. STG Duration 5 weeks Fpc Goal (LTG) Pt will be able to start gardening >20 mins without increased LBP. 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 LTG Duration 10 weeks activity tolerance Impairment Pt has increased LBP with sitting/ standing >15 mins Short Term Goal (STG) Pt will have no more than >5/ 10 LBP for sitting/ standing > 15 mins STG Duration 5 weeks Fpc Goal (LTG) Pt will have no more than >3/ 10 LBP for sitting/ standing > 30 mins LTG Duration 10 weeks Oswestry LBP Impairment Pt scores 56 (40-59% impairment) on Oswestry LBP questionnaire Short Term Goal (STG) Pt will score <40 (20-39% impairment) on Oswestry LBP questionnaire On Call Pharmacy Technician Goal (LTG) Pt will score <20 (1-19% impairment) on Oswestry LBP questionnaire to improve her quality of life LTG Duration 10 weeks Assessment Summary Assessment Pt having some increased complaints of ITB soreness, she thinks that may be the cause of most of her leg pain, rather than pain from her back. Physical Therapy Plan Frequency and Duration Frequency of Treatment 2x/Week Duration of Treatment 10 weeks Plan of Care Start Date 07/12/19 Plan of Care End Date 09/25/19 Therapeutic Interventions Therapeutic Interventions Balance Training,Gait Training ,Home Exercise Program,Joint Mobilizations,Manual Therapy, Neuromuscular Re-education, Patient/Caregiver Education, Self-Care/Home Management,Soft Tissue Mobilization,Taping, Therapeutic Activities, Therapeutic Exercises Modalities Cold Pack/Ice Massage,Electric Stimulation,Hot Packs, Infrared Therapy,Iontophoresis ,Traction- Mechanical, Ultrasound Next Visit Focus/Plan Next Note Type Treatment Note Next Visit Plan Continue current POC, advance as tolerated B hip stability training and strengthening as cesia NM layton on core stability during single leg stance MT for piriformis TrP/ hypertonicity
--- NOTE | 2019-08-09 16:52 | PT.OTN ---
Current Diagnoses Radiculopathy, lumbar region (08/04/19) Encounter for surgical aftercare following surgery on the nervous system (08/04/19) Physical Therapy Treatment Note PT-OP-A Visit Information Start: 07/12/19 13:55 Freq: Status: Active Protocol: Document 08/04/19 14:32 JG (Rec: 08/04/19 15:21 JG [id number]) Out-Patient Physical Therapy Visit Information Visit Information Visit Type Treatment Note Visit Note tx led by DENISSE Duncan Visit Start Time 14:32 Visit Stop Time 15:15 Total Visit Minutes 43 Visit Number Number of OUTSIDE SALESMAN Visits 0 PT-OP-B Current Condition Start: 07/12/19 13:55 Freq: Status: Active Protocol: Document 07/12/19 13:00 HH (Rec: 07/12/19 14:30 HH [email or web address]) Current Condition History of Current Condition Onset Date Jun 02, 2019 Current Complaints s/p R L1-L2 partial laminectomy, LBP, radiating pain to R LE History of Current Condition Pt is a 64 yo female who presents to clinic today s/p s /p R L1-L2 partial laminectomy on 06/02/19 (5 1/2 weeks ago) at with Dr. Alonso. Pt currently follows do deep bending/ twisiting/ heavy lifting until 6 weeks post op. Pt stated her back pain and radiating RLE pain started from this December after she was lifting a ~60lbs object by twisting her back without taking steps. She is currently having ~7/10 pain in a daily basis which aggravated by staying in one position ( standing/sitting) for >15 mins . Changing position usually helps her symptoms but it affects her ability to focus on her current task at work. Pt does know all precautions and able to follow them safely since sx. She is currently in a tansitiont to reduce her pain med from oxycodone (daily ) to tramadol. She also has hx of chronic LBP with L4-L5 fusion in 2014, and she stated that Dr. Alonso suggested she might need another back surgery if this one with PT fails Future Testing and Treatments Planned Dr. Alonso suggested she might need another back surgery if this one with PT fails Treatment Goals Patient/Caregiver Goals 1. 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 To be able to sail with her boat without pain. Prior Functional Status Baseline Function- ADL's Independent Baseline Function- Mobility Independent Baseline Function- Work/School able to sit/stand >1 hour Baseline Function- Recreation/Hobbies able to lift objects > 50 lbs without pain Current Functional Impairments (Reported) Functional Limitations- ADL's No Bending Lifting Twisting for 6 weeks (06/02), log roll for bed mobility Functional Limitations- Work/School unable to sit / stand > 15 minutes without increased pain Functional Limitations- Recreation/ unable to sail due to LBP/ Hobbies gardening PT-OP-C Subjective Start: 07/12/19 13:55 Freq: Status: Active Protocol: Document 08/04/19 14:32 JG (Rec: 08/09/19 16:39 JG [email or web address]) OP-PT Subjective Patient Comments Patient Comments I'm still feeling about the same. As long as I don't move wrong I am fine. One of my coworkers has been helping remind me not to do too much at work. PT-OP-D Balance Start: 07/12/19 13:55 Freq: Status: Active Protocol: Document 07/12/19 13:00 HH (Rec: 07/12/19 14:30 HH [email or web address]) Balance Tests Single Limb Standing Single Limb- Right >30 s Single Limb- Left >30 s Other Other Balance Tests Performed increase R lateral shift and increased R leg pain during SLS on R PT-OP-E Functional Tests Start: 07/12/19 13:55 Freq: Status: Active Protocol: Document 07/12/19 13:00 HH (Rec: 07/12/19 15:46 HH [email or web address]) Functional Tests Five Times Sit to Stand Test Score 21 PT-OP-F Manual Assessment Start: 07/12/19 13:55 Freq: Status: Active Protocol: Document 07/12/19 13:00 HH (Rec: 07/12/19 14:30 HH [email or web address]) Manual Assessments Soft Tissue Assessment Soft Tissue Mobility Assessment significant tenderness to pressure below R SIJ and piriformis PT-OP-H Neuro Start: 07/12/19 13:55 Freq: Status: Active Protocol: Document 07/12/19 13:00 HH (Rec: 07/12/19 14:30 HH [email or web address]) Sensation Evaluation Gross Sensation Gross Sensation Right LE Impaired Dermatome Impairments L5,S1 Comments Summary Comments decreased sensation to LT and pressure at lateral lower leg and R big toe. Deep Tendon Reflex & Clonus Assessment Deep Tendon Reflex Bilateral Achilles Deep Tendon Reflex 1+ Diminished Bilateral Patellar Deep Tendon Reflex 1+ Diminished PT-OP-J Posture/Palpation/Skin Start: 07/12/19 13:55 Freq: Status: Active Protocol: Document 07/12/19 13:00 HH (Rec: 07/12/19 14:30 [email or web address]) Posture Evaluation Position Standing Evaluation View Lateral T-Spine Posture Increased Kyphosis L-Spine Posture Increased Lordosis Weight Distribution Weight Shifted Anterior PT-OP-M Strength Start: 07/12/19 13:55 Freq: Status: Active Protocol: Document 07/12/19 13:00 HH (Rec: 07/12/19 14:30 [email or web address]) Hip Strength Hip Manual Muscle Testing Left Flexion (L2) 4+ Good+ Extension (S1) 4 Good Abduction 4+ Good+ Adduction 4+ Good+ External Rotation 4+ Good+ Internal Rotation 4+ Good+ Right Flexion (L2) 4- Good- Extension (S1) 3+ Fair+ Abduction 3+ Fair+ Adduction 4 Good External Rotation 3+ Fair+ Internal Rotation 3+ Fair+ Knee Strength Knee Manual Muscle Testing Left Flexion (S2) 4+ Good+ Extension (L3) 4+ Good+ Right Flexion (S2) 3+ Fair+ Extension (L3) 4 Good Comments increased R back pain during resisted R knee flexion Ankle/Foot Strength Ankle and Foot Manual Muscle Testing Left Dorsiflexion (L4) 4+ Good+ Plantarflexion (S1) 4+ Good+ Inversion 4+ Good+ Eversion (S1) 4+ Good+ Right Dorsiflexion (L4) 4- Good- Plantarflexion (S1) 4- Good- Inversion 4 Good Eversion (S1) 4 Good PT-OP-Q Treatments Start: 07/12/19 13:55 Freq: Status: Active Protocol: Document 08/04/19 14:32 JG (Rec: 08/04/19 15:21 JG [id number]) Cardio Equipment Recumbent Stepper (Sci-Fit) Duration (Minutes) 7 Gym Equipment Shuttle Recovery Unilateral Squats Resistance 50# and 62# Shuttle Recovery Platform Stable Bilateral Squats Resistance #50 Shuttle Recovery Platform Stable Reps/Time warm up Therapeutic Exercises Supine Exercises LTR Supine Exercise Name with feet on table Side bilateral Comments cuing to keep low back flat Prone Exercises cat camel Prone Exercise Name neutral to flexoin Side bilateral Comments cues on lumbar segmental movement, c/o extension increased pain. Sidelying Exercises Lynn test Sidelying Exercise Name Stretch at Lynn test position Side right Comments pt c/o tightness at R hip flexor and pain at R low back Sitting Exercises tennis ball release Sitting Exercise Name at R buttock Equipment Used tennis ball Comments HEP for self release Other Exercises segmental bird dog Side bilateral Comments single UE or LE lift Manual Therapy Treatment Soft Tissue Mobilization R ITB Mobilization Type Cross-Friction,Instrument Assisted,Rolling,Sustained Pressure Intensity/Depth Superficial Body Position Sidelying R paraspinals Mobilization Type Cross-Friction,Rolling, Sustained Pressure Intensity/Depth Superficial Body Position Sidelying R piriformis Mobilization Type Sustained Pressure,Trigger Point Release Intensity/Depth Superficial Body Position Sidelying Comments with active clam shell PT-OP-R Modalities Start: 07/12/19 13:55 Freq: Status: Active Protocol: Document 08/02/19 16:50 DCW (Rec: 08/02/19 17:27 DCW [id number]) Electric Stimulation Electric Stimulation Functional Electric Stimulation Body Location Lumbar Spine Duration (Minutes) 15 Patient Position Hooklying Combined With Heat/Cold Hot Pack PT-OP-T Assessment and Plan Start: 07/12/19 13:55 Freq: Status: Active Protocol: Document 08/04/19 14:32 JG (Rec: 08/04/19 15:21 JG [id number]) Physical Therapy Assessment Goals Return to hobby Impairment Pt is currently unable to do gardening work due to LBP Short Term Goal (STG) Pt will be able to start gardening >10 mins without increased LBP. STG Duration 5 weeks [facility]ci Goal (LTG) Pt will be able to start gardening >20 mins without increased LBP. 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 LTG Duration 10 weeks activity tolerance Impairment Pt has increased LBP with sitting/ standing >15 mins Short Term Goal (STG) Pt will have no more than >5/ 10 LBP for sitting/ standing > 15 mins STG Duration 5 weeks Fci Goal (LTG) Pt will have no more than >3/ 10 LBP for sitting/ standing > 30 mins LTG Duration 10 weeks Oswestry LBP Impairment Pt scores 56 (40-59% impairment) on Oswestry LBP questionnaire Short Term Goal (STG) Pt will score <40 (20-39% impairment) on Oswestry LBP questionnaire [facility]ci Goal (LTG) Pt will score <20 (1-19% impairment) on Oswestry LBP questionnaire to improve her quality of life LTG Duration 10 weeks Assessment Summary Assessment Pt has significant tenderness to pressure on R ITB region ( proximal > distal) and is unable to tolerate more than superficial pressure. Pt is unable to reach neutral for R Lynn test. Improving tolerance for R piriformis MT. Educated pt to use tennis ball release for piriformis and lateral hip. Pt demonstrates improving core strength but cont challenge with unilateral stabilization. Physical Therapy Plan Next Visit Focus/Plan Next Note Type Treatment Note Next Visit Plan Continue current POC, advance as tolerated B hip stability training and strengthening as cesia NM layton on core stability during single leg stance MT for piriformis TrP/ hypertonicity
--- NOTE | 2019-08-18 10:30 | PT.OTN ---
Current Diagnoses Radiculopathy, lumbar region (08/18/19) Encounter for surgical aftercare following surgery on the nervous system (08/18/19) Physical Therapy Treatment Note PT-OP-A Visit Information Start: 07/12/19 13:55 Freq: Status: Active Protocol: Document 08/18/19 09:03 (Rec: 08/18/19 10:30 [id number]) Out-Patient Physical Therapy Visit Information Visit Information Visit Type Treatment Note Visit Note tx led by DENISSE Duncan Visit Start Time 09:03 Visit Stop Time 09:46 Total Visit Minutes 43 Visit Number Number of NURSING CENTER TUTOR Visits 0 PT-OP-B Current Condition Start: 07/12/19 13:55 Freq: Status: Active Protocol: Document 07/12/19 13:00 HH (Rec: 07/12/19 14:30 [email or web address]) Current Condition History of Current Condition Onset Date Jun 02, 2019 Current Complaints s/p R L1-L2 partial laminectomy, LBP, radiating pain to R LE History of Current Condition Pt is a 64 yo female who presents to clinic today s/p s /p R L1-L2 partial laminectomy on 06/02/19 (5 1/2 weeks ago) at with Dr. Alonso. Pt currently follows do deep bending/ twisiting/ heavy lifting until 6 weeks post op. Pt stated her back pain and radiating RLE pain started from this December after she was lifting a ~60lbs object by twisting her back without taking steps. She is currently having ~7/10 pain in a daily basis which aggravated by staying in one position ( standing/sitting) for >15 mins . Changing position usually helps her symptoms but it affects her ability to focus on her current task at work. Pt does know all precautions and able to follow them safely since sx. She is currently in a tansitiont to reduce her pain med from oxycodone (daily ) to tramadol. She also has hx of chronic LBP with L4-L5 fusion in 2014, and she stated that Dr. Alonso suggested she might need another back surgery if this one with PT fails Future Testing and Treatments Planned Dr. Alonso suggested she might need another back surgery if this one with PT fails Treatment Goals Patient/Caregiver Goals 1. 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 To improve her core strength 3. 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 To be able to sail with her boat without pain. Prior Functional Status Baseline Function- ADL's Independent Baseline Function- Mobility Independent Baseline Function- Work/School able to sit/stand >1 hour Baseline Function- Recreation/Hobbies able to lift objects > 50 lbs without pain Current Functional Impairments (Reported) Functional Limitations- ADL's No Bending Lifting Twisting for 6 weeks (06/02), log roll for bed mobility Functional Limitations- Work/School unable to sit / stand > 15 minutes without increased pain Functional Limitations- Recreation/ unable to sail due to LBP/ Hobbies gardening PT-OP-C Subjective Start: 07/12/19 13:55 Freq: Status: Active Protocol: Document 08/18/19 09:03 HH (Rec: 08/18/19 10:30 [id number]) OP-PT Subjective Patient Comments Patient Comments I am feeling better lately, able to move better with less pain. I could sit more at work but moving around helps my symptoms. I still have some soreness and pain down to my hip and back of my knee. PT-OP-D Balance Start: 07/12/19 13:55 Freq: Status: Active Protocol: Document 07/12/19 13:00 HH (Rec: 07/12/19 14:30 [email or web address]) Balance Tests Single Limb Standing Single Limb- Right >30 s Single Limb- Left >30 s Other Other Balance Tests Performed increase R lateral shift and increased R leg pain during SLS on R PT-OP-E Functional Tests Start: 07/12/19 13:55 Freq: Status: Active Protocol: Document 07/12/19 13:00 HH (Rec: 07/12/19 15:46 [email or web address]) Functional Tests Five Times Sit to Stand Test Score 21 PT-OP-F Manual Assessment Start: 07/12/19 13:55 Freq: Status: Active Protocol: Document 07/12/19 13:00 HH (Rec: 07/12/19 14:30 [email or web address]) Manual Assessments Soft Tissue Assessment Soft Tissue Mobility Assessment significant tenderness to pressure below R SIJ and piriformis PT-OP-H Neuro Start: 07/12/19 13:55 Freq: Status: Active Protocol: Document 07/12/19 13:00 HH (Rec: 07/12/19 14:30 [email or web address]) Sensation Evaluation Gross Sensation Gross Sensation Right LE Impaired Dermatome Impairments L5,S1 Comments Summary Comments decreased sensation to LT and pressure at lateral lower leg and R big toe. Deep Tendon Reflex & Clonus Assessment Deep Tendon Reflex Bilateral Achilles Deep Tendon Reflex 1+ Diminished Bilateral Patellar Deep Tendon Reflex 1+ Diminished PT-OP-J Posture/Palpation/Skin Start: 07/12/19 13:55 Freq: Status: Active Protocol: Document 07/12/19 13:00 HH (Rec: 07/12/19 14:30 [email or web address]) Posture Evaluation Position Standing Evaluation View Lateral T-Spine Posture Increased Kyphosis L-Spine Posture Increased Lordosis Weight Distribution Weight Shifted Anterior PT-OP-M Strength Start: 07/12/19 13:55 Freq: Status: Active Protocol: Document 07/12/19 13:00 HH (Rec: 07/12/19 14:30 [email or web address]) Hip Strength Hip Manual Muscle Testing Left Flexion (L2) 4+ Good+ Extension (S1) 4 Good Abduction 4+ Good+ Adduction 4+ Good+ External Rotation 4+ Good+ Internal Rotation 4+ Good+ Right Flexion (L2) 4- Good- Extension (S1) 3+ Fair+ Abduction 3+ Fair+ Adduction 4 Good External Rotation 3+ Fair+ Internal Rotation 3+ Fair+ Knee Strength Knee Manual Muscle Testing Left Flexion (S2) 4+ Good+ Extension (L3) 4+ Good+ Right Flexion (S2) 3+ Fair+ Extension (L3) 4 Good Comments increased R back pain during resisted R knee flexion Ankle/Foot Strength Ankle and Foot Manual Muscle Testing Left Dorsiflexion (L4) 4+ Good+ Plantarflexion (S1) 4+ Good+ Inversion 4+ Good+ Eversion (S1) 4+ Good+ Right Dorsiflexion (L4) 4- Good- Plantarflexion (S1) 4- Good- Inversion 4 Good Eversion (S1) 4 Good PT-OP-Q Treatments Start: 07/12/19 13:55 Freq: Status: Active Protocol: Document 08/18/19 09:03 HH (Rec: 08/18/19 10:30 [id number]) Gym Equipment Shuttle Recovery Bilateral Squats Details with hip abd band Resistance #[id number] Shuttle Recovery Platform Stable Reps/Time 12 x 3 Therapeutic Exercises Sitting Exercises tennis ball release Sitting Exercise Name at R buttock Equipment Used tennis ball/ rolling pin Comments HEP for self release Ball reach Side bilateral Equipment Used red 75 cm ex ball Reps/Minutes 3x15 Comments R/L/central Manual Therapy Treatment Soft Tissue Mobilization R ITB Mobilization Type Cross-Friction,Instrument Assisted,Rolling,Sustained Pressure Intensity/Depth Superficial Body Position Sidelying R piriformis Mobilization Type Sustained Pressure,Trigger Point Release Intensity/Depth Superficial Body Position Sidelying Comments with active clam shell Self-Care/Home Management Treatment Education Patient Education Body Mechanics,Joint Protection,Pain Management, Posture Other Education used anatomy model to demonstrate increased pressure in piriformis could cause sciatic nerve irritation PT-OP-R Modalities Start: 07/12/19 13:55 Freq: Status: Active Protocol: Document 08/02/19 16:50 DCW (Rec: 08/02/19 17:27 DCW [id number]) Electric Stimulation Electric Stimulation Functional Electric Stimulation Body Location Lumbar Spine Duration (Minutes) 15 Patient Position Hooklying Combined With Heat/Cold Hot Pack PT-OP-T Assessment and Plan Start: 07/12/19 13:55 Freq: Status: Active Protocol: Document 08/18/19 09:03 HH (Rec: 08/18/19 10:30 HH [id number]) Physical Therapy Assessment Goals Return to hobby Impairment Pt is currently unable to do gardening work due to LBP Short Term Goal (STG) Pt will be able to start gardening >10 mins without increased LBP. STG Duration 5 weeks Chili Pepper Grinder Goal (LTG) Pt will be able to start gardening >20 mins without increased LBP. LTG Duration 10 weeks strength Impairment Pt demonstrates significant R LE weakness Short Term Goal (STG) Pt will be able to improve her RLE strength by 1/2 MMT grade Chili Pepper Grinder Goal (LTG) Pt will be able to improve her overall RLE strength by 1 MMT grade so she can bend over to pick remover object >20 lbs from low surface without increased pain. LTG Duration 10 weeks activity tolerance Impairment Pt has increased LBP with sitting/ standing >15 mins Short Term Goal (STG) Pt will have no more than >5/ 10 LBP for sitting/ standing > 15 mins STG Duration 5 weeks Chili Pepper Grinder Goal (LTG) Pt will have no more than >3/ 10 LBP for sitting/ standing > 30 mins LTG Duration 10 weeks Oswestry LBP Impairment Pt scores 56 (40-59% impairment) on Oswestry LBP questionnaire Short Term Goal (STG) Pt will score <40 (20-39% impairment) on Oswestry LBP questionnaire Shelter Goal (LTG) Pt will score <20 (1-19% impairment) on Oswestry LBP questionnaire to improve her quality of life LTG Duration 10 weeks Assessment Summary Assessment Pt's hip discomfort has been more localized today with decreased tenderness to pressure at R piriformis, IT band. Pt also showed increased LLE strength. She stated she is 75% improved now since surgery. Pt cont to have reproduced symptoms with close packed position (lumbar SB to R and ext). Added SB stretch to her HEP. Physical Therapy Plan Next Visit Focus/Plan Next Note Type Treatment Note Next Visit Plan Provide HEP package due to vacation Continue current POC, advance as tolerated B hip stability training and strengthening as cesia NM layton on core stability during single leg stance MT for piriformis TrP/ hypertonicity
--- NOTE | 2019-08-23 17:50 | PT.OTN ---
Current Diagnoses Radiculopathy, lumbar region (08/23/19) Encounter for surgical aftercare following surgery on the nervous system (08/23/19) Physical Therapy Treatment Note PT-OP-A Visit Information Start: 07/12/19 13:55 Freq: Status: Active Protocol: Document 08/23/19 16:46 HH (Rec: 08/23/19 17:50 [id number]) Out-Patient Physical Therapy Visit Information Visit Information Visit Type Treatment Note Visit Note tx led by DENISSE Duncan Visit Start Time 16:46 Visit Stop Time 17:30 Total Visit Minutes 44 Visit Number Number of DISPENSARY TECHNICIAN Visits 0 PT-OP-B Current Condition Start: 07/12/19 13:55 Freq: Status: Active Protocol: Document 07/12/19 13:00 HH (Rec: 07/12/19 14:30 [email or web address]) Current Condition History of Current Condition Onset Date Jun 02, 2019 Current Complaints s/p R L1-L2 partial laminectomy, LBP, radiating pain to R LE History of Current Condition Pt is a 64 yo female who presents to clinic today s/p s /p R L1-L2 partial laminectomy on 06/02/19 (5 1/2 weeks ago) at with Dr. Alonso. Pt currently follows do deep bending/ twisiting/ heavy lifting until 6 weeks post op. Pt stated her back pain and radiating RLE pain started from this December after she was lifting a ~60lbs object by twisting her back without taking steps. She is currently having ~7/10 pain in a daily basis which aggravated by staying in one position ( standing/sitting) for >15 mins . Changing position usually helps her symptoms but it affects her ability to focus on her current task at work. Pt does know all precautions and able to follow them safely since sx. She is currently in a tansitiont to reduce her pain med from oxycodone (daily ) to tramadol. She also has hx of chronic LBP with L4-L5 fusion in 2014, and she stated that Dr. Alonso suggested she might need another back surgery if this one with PT fails Future Testing and Treatments Planned Dr. Alonso suggested she might need another back surgery if this one with PT fails Treatment Goals Patient/Caregiver Goals 1. 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 To be able to sail with her boat without pain. Prior Functional Status Baseline Function- ADL's Independent Baseline Function- Mobility Independent Baseline Function- Work/School able to sit/stand >1 hour Baseline Function- Recreation/Hobbies able to lift objects > 50 lbs without pain Current Functional Impairments (Reported) Functional Limitations- ADL's No Bending Lifting Twisting for 6 weeks (06/02), log roll for bed mobility Functional Limitations- Work/School unable to sit / stand > 15 minutes without increased pain Functional Limitations- Recreation/ unable to sail due to LBP/ Hobbies gardening PT-OP-C Subjective Start: 07/12/19 13:55 Freq: Status: Active Protocol: Document 08/23/19 16:46 HH (Rec: 08/23/19 17:50 HH [id number]) OP-PT Subjective Patient Comments Patient Comments My back and right leg pain is pretty bad today since i stood at work for a while for couple hours. PT-OP-D Balance Start: 07/12/19 13:55 Freq: Status: Active Protocol: Document 07/12/19 13:00 HH (Rec: 07/12/19 14:30 HH [email or web address]) Balance Tests Single Limb Standing Single Limb- Right >30 s Single Limb- Left >30 s Other Other Balance Tests Performed increase R lateral shift and increased R leg pain during SLS on R PT-OP-E Functional Tests Start: 07/12/19 13:55 Freq: Status: Active Protocol: Document 07/12/19 13:00 HH (Rec: 07/12/19 15:46 HH [email or web address]) Functional Tests Five Times Sit to Stand Test Score 21 PT-OP-F Manual Assessment Start: 07/12/19 13:55 Freq: Status: Active Protocol: Document 07/12/19 13:00 HH (Rec: 07/12/19 14:30 HH [email or web address]) Manual Assessments Soft Tissue Assessment Soft Tissue Mobility Assessment significant tenderness to pressure below R SIJ and piriformis PT-OP-H Neuro Start: 07/12/19 13:55 Freq: Status: Active Protocol: Document 07/12/19 13:00 HH (Rec: 07/12/19 14:30 HH [email or web address]) Sensation Evaluation Gross Sensation Gross Sensation Right LE Impaired Dermatome Impairments L5,S1 Comments Summary Comments decreased sensation to LT and pressure at lateral lower leg and R big toe. Deep Tendon Reflex & Clonus Assessment Deep Tendon Reflex Bilateral Achilles Deep Tendon Reflex 1+ Diminished Bilateral Patellar Deep Tendon Reflex 1+ Diminished PT-OP-J Posture/Palpation/Skin Start: 07/12/19 13:55 Freq: Status: Active Protocol: Document 07/12/19 13:00 HH (Rec: 07/12/19 14:30 HH [email or web address]) Posture Evaluation Position Standing Evaluation View Lateral T-Spine Posture Increased Kyphosis L-Spine Posture Increased Lordosis Weight Distribution Weight Shifted Anterior PT-OP-M Strength Start: 07/12/19 13:55 Freq: Status: Active Protocol: Document 07/12/19 13:00 HH (Rec: 07/12/19 14:30 [email or web address]) Hip Strength Hip Manual Muscle Testing Left Flexion (L2) 4+ Good+ Extension (S1) 4 Good Abduction 4+ Good+ Adduction 4+ Good+ External Rotation 4+ Good+ Internal Rotation 4+ Good+ Right Flexion (L2) 4- Good- Extension (S1) 3+ Fair+ Abduction 3+ Fair+ Adduction 4 Good External Rotation 3+ Fair+ Internal Rotation 3+ Fair+ Knee Strength Knee Manual Muscle Testing Left Flexion (S2) 4+ Good+ Extension (L3) 4+ Good+ Right Flexion (S2) 3+ Fair+ Extension (L3) 4 Good Comments increased R back pain during resisted R knee flexion Ankle/Foot Strength Ankle and Foot Manual Muscle Testing Left Dorsiflexion (L4) 4+ Good+ Plantarflexion (S1) 4+ Good+ Inversion 4+ Good+ Eversion (S1) 4+ Good+ Right Dorsiflexion (L4) 4- Good- Plantarflexion (S1) 4- Good- Inversion 4 Good Eversion (S1) 4 Good PT-OP-Q Treatments Start: 07/12/19 13:55 Freq: Status: Active Protocol: Document 08/23/19 16:46 HH (Rec: 08/23/19 17:50 HH [id number]) Therapeutic Exercises Sitting Exercises seated lateral flexion Sitting Exercise Name isolated lumbar lateral flexion Side bilateral Reps/Minutes 5 x 4 Comments prevent hip hikes Ball reach Side bilateral Equipment Used red 75 cm ex ball Reps/Minutes 3x15 Comments R/L/central Standing Exercises toe reach Standing Exercise Name Nadeem curl Side bilateral Reps/Minutes 5 secs down Comments standing flexion Manual Therapy Treatment Soft Tissue Mobilization R ITB Mobilization Type Cross-Friction,Instrument Assisted,Rolling,Sustained Pressure Intensity/Depth Superficial Body Position Sidelying Comments with rolling pin R paraspinals Mobilization Type Cross-Friction,Rolling, Sustained Pressure Intensity/Depth Superficial Body Position Sidelying R piriformis Mobilization Type Sustained Pressure,Trigger Point Release Intensity/Depth Superficial Body Position Sidelying Joint Mobilizations lumbar distraction Direction inferior Grade II Body Position Supine Reps/Duration 10 secs hold x 5 R hip distraction Joint R hip joint Direction inferior Grade II Body Position Supine Reps/Duration 10secs hold x5 Nerve Glides seated sciatic nerve glide Nerve R sciatic nerve Body Position Sitting Reps/Duration 8 x5 Comments knee ext + DF PT-OP-R Modalities Start: 07/12/19 13:55 Freq: Status: Active Protocol: Document 08/02/19 16:50 DCW (Rec: 08/02/19 17:27 DCW [id number]) Electric Stimulation Electric Stimulation Functional Electric Stimulation Body Location Lumbar Spine Duration (Minutes) 15 Patient Position Hooklying Combined With Heat/Cold Hot Pack PT-OP-T Assessment and Plan Start: 07/12/19 13:55 Freq: Status: Active Protocol: Document 08/23/19 16:46 HH (Rec: 08/23/19 17:50 HH [id number]) Physical Therapy Assessment Goals Return to hobby Impairment Pt is currently unable to do gardening work due to LBP Short Term Goal (STG) Pt will be able to start gardening >10 mins without increased LBP. STG Duration 5 weeks [facility] Goal (LTG) Pt will be able to start gardening >20 mins without increased LBP. 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 LTG Duration 10 weeks activity tolerance Impairment Pt has increased LBP with sitting/ standing >15 mins Short Term Goal (STG) Pt will have no more than >5/ 10 LBP for sitting/ standing > 15 mins STG Duration 5 weeks Neck Band Operator Goal (LTG) Pt will have no more than >3/ 10 LBP for sitting/ standing > 30 mins LTG Duration 10 weeks Oswestry LBP Impairment Pt scores 56 (40-59% impairment) on Oswestry LBP questionnaire Short Term Goal (STG) Pt will score <40 (20-39% impairment) on Oswestry LBP questionnaire Neck Band Operator Goal (LTG) Pt will score <20 (1-19% impairment) on Oswestry LBP questionnaire to improve her quality of life LTG Duration 10 weeks Assessment Summary Assessment Pt has a flare up today after standing for many hours. She was very tender to touch/ pressure of her proximal R LE and sensitive to movements. Pt also has increased R buttock pain with seated sciatic nerve glide. Pt did feel relieved with tingling sensation and pain after R hip distraction and lumbar distraction. Pt is going on a vacation for few weeks, given HEP sheet to maintain her mobility and strength. Physical Therapy Plan Next Visit Focus/Plan Next Note Type Treatment Note Next Visit Plan review HEP check pt's symptoms Continue current POC, advance as tolerated B hip stability training and strengthening as cesia NM layton on core stability during single leg stance MT for piriformis TrP/ hypertonicity
--- NOTE | 2019-09-08 17:27 | PT.OTN ---
Current Diagnoses Radiculopathy, lumbar region (09/08/19) Encounter for surgical aftercare following surgery on the nervous system (09/08/19) Physical Therapy Treatment Note PT-OP-A Visit Information Start: 07/12/19 13:55 Freq: Status: Active Protocol: Document 09/08/19 16:02 (Rec: 09/08/19 17:27 [id number]) Out-Patient Physical Therapy Visit Information Visit Information Visit Type Treatment Note Visit Start Time 16:02 Visit Stop Time 16:50 Total Visit Minutes 48 Visit Number Number of DIAMOND DIE MAKER Visits 0 PT-OP-B Current Condition Start: 07/12/19 13:55 Freq: Status: Active Protocol: Document 07/12/19 13:00 HH (Rec: 07/12/19 14:30 [email or web address]) Current Condition History of Current Condition Onset Date Jun 02, 2019 Current Complaints s/p R L1-L2 partial laminectomy, LBP, radiating pain to R LE History of Current Condition Pt is a 64 yo female who presents to clinic today s/p s /p R L1-L2 partial laminectomy on 06/02/19 (5 1/2 weeks ago) at with Dr. Alonso. Pt currently follows do deep bending/ twisiting/ heavy lifting until 6 weeks post op. Pt stated her back pain and radiating RLE pain started from this December after she was lifting a ~60lbs object by twisting her back without taking steps. She is currently having ~7/10 pain in a daily basis which aggravated by staying in one position ( standing/sitting) for >15 mins . Changing position usually helps her symptoms but it affects her ability to focus on her current task at work. Pt does know all precautions and able to follow them safely since sx. She is currently in a tansitiont to reduce her pain med from oxycodone (daily ) to tramadol. She also has hx of chronic LBP with L4-L5 fusion in 2014, and she stated that Dr. Alonso suggested she might need another back surgery if this one with PT fails Future Testing and Treatments Planned Dr. Alonso suggested she might need another back surgery if this one with PT fails Treatment Goals Patient/Caregiver Goals 1. 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 To improve her core strength 3. 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 To be able to sail with her boat without pain. Prior Functional Status Baseline Function- ADL's Independent Baseline Function- Mobility Independent Baseline Function- Work/School able to sit/stand >1 hour Baseline Function- Recreation/Hobbies able to lift objects > 50 lbs without pain Current Functional Impairments (Reported) Functional Limitations- ADL's No Bending Lifting Twisting for 6 weeks (06/02), log roll for bed mobility Functional Limitations- Work/School unable to sit / stand > 15 minutes without increased pain Functional Limitations- Recreation/ unable to sail due to LBP/ Hobbies gardening PT-OP-C Subjective Start: 07/12/19 13:55 Freq: Status: Active Protocol: Document 09/08/19 16:02 HH (Rec: 09/08/19 17:27 HH [id number]) OP-PT Subjective Patient Comments Patient Comments I just got back from my trip and I sat a lot for car rides which made me feel very stiff. However, stretching and tennis ball release help my symptoms but it always come back. Kristen noticed my tingling in R foot has been getting less and less. PT-OP-D Balance Start: 07/12/19 13:55 Freq: Status: Active Protocol: Document 07/12/19 13:00 HH (Rec: 07/12/19 14:30 HH [email or web address]) Balance Tests Single Limb Standing Single Limb- Right >30 s Single Limb- Left >30 s Other Other Balance Tests Performed increase R lateral shift and increased R leg pain during SLS on R PT-OP-E Functional Tests Start: 07/12/19 13:55 Freq: Status: Active Protocol: Document 07/12/19 13:00 HH (Rec: 07/12/19 15:46 HH [email or web address]) Functional Tests Five Times Sit to Stand Test Score 21 PT-OP-F Manual Assessment Start: 07/12/19 13:55 Freq: Status: Active Protocol: Document 07/12/19 13:00 HH (Rec: 07/12/19 14:30 HH [email or web address]) Manual Assessments Soft Tissue Assessment Soft Tissue Mobility Assessment significant tenderness to pressure below R SIJ and piriformis PT-OP-H Neuro Start: 07/12/19 13:55 Freq: Status: Active Protocol: Document 07/12/19 13:00 HH (Rec: 07/12/19 14:30 HH [email or web address]) Sensation Evaluation Gross Sensation Gross Sensation Right LE Impaired Dermatome Impairments L5,S1 Comments Summary Comments decreased sensation to LT and pressure at lateral lower leg and R big toe. Deep Tendon Reflex & Clonus Assessment Deep Tendon Reflex Bilateral Achilles Deep Tendon Reflex 1+ Diminished Bilateral Patellar Deep Tendon Reflex 1+ Diminished PT-OP-J Posture/Palpation/Skin Start: 07/12/19 13:55 Freq: Status: Active Protocol: Document 07/12/19 13:00 HH (Rec: 07/12/19 14:30 HH [email or web address]) Posture Evaluation Position Standing Evaluation View Lateral T-Spine Posture Increased Kyphosis L-Spine Posture Increased Lordosis Weight Distribution Weight Shifted Anterior PT-OP-M Strength Start: 07/12/19 13:55 Freq: Status: Active Protocol: Document 07/12/19 13:00 HH (Rec: 07/12/19 14:30 [email or web address]) Hip Strength Hip Manual Muscle Testing Left Flexion (L2) 4+ Good+ Extension (S1) 4 Good Abduction 4+ Good+ Adduction 4+ Good+ External Rotation 4+ Good+ Internal Rotation 4+ Good+ Right Flexion (L2) 4- Good- Extension (S1) 3+ Fair+ Abduction 3+ Fair+ Adduction 4 Good External Rotation 3+ Fair+ Internal Rotation 3+ Fair+ Knee Strength Knee Manual Muscle Testing Left Flexion (S2) 4+ Good+ Extension (L3) 4+ Good+ Right Flexion (S2) 3+ Fair+ Extension (L3) 4 Good Comments increased R back pain during resisted R knee flexion Ankle/Foot Strength Ankle and Foot Manual Muscle Testing Left Dorsiflexion (L4) 4+ Good+ Plantarflexion (S1) 4+ Good+ Inversion 4+ Good+ Eversion (S1) 4+ Good+ Right Dorsiflexion (L4) 4- Good- Plantarflexion (S1) 4- Good- Inversion 4 Good Eversion (S1) 4 Good PT-OP-Q Treatments Start: 07/12/19 13:55 Freq: Status: Active Protocol: Document 09/08/19 16:02 HH (Rec: 09/08/19 17:27 HH [id number]) Cardio Equipment Recumbent Stepper (Sci-Fit) Duration (Minutes) 5 Resistance 5 Gym Equipment Shuttle Recovery Bilateral Squats Details with yellow hip abd band Resistance #[id number] Shuttle Recovery Platform Stable Reps/Time 12 x 3 Therapeutic Exercises Supine Exercises SLR Side right Reps/Minutes 8 x2 Sidelying Exercises clam shell Side right Reps/Minutes 8 x2 Standing Exercises marching in place Standing Exercise Name UE support for RLE, w/o support for LLE Side bilateral Equipment Used grab bar Reps/Minutes 8 mins Manual Therapy Treatment Soft Tissue Mobilization R ITB Mobilization Type Cross-Friction,Instrument Assisted,Rolling,Sustained Pressure Intensity/Depth Superficial Body Position Sidelying Comments with rolling pin R paraspinals Mobilization Type Cross-Friction,Rolling, Sustained Pressure Intensity/Depth Superficial Body Position Sidelying R piriformis Mobilization Type Sustained Pressure,Trigger Point Release Intensity/Depth Superficial Body Position Sidelying Joint Mobilizations lumbar distraction Direction inferior Grade II Body Position Supine Reps/Duration 10 secs hold x 5 R hip distraction Joint R hip joint Direction inferior Grade II Body Position Supine Reps/Duration 10secs hold x5 PT-OP-R Modalities Start: 07/12/19 13:55 Freq: Status: Active Protocol: Document 08/02/19 16:50 DCW (Rec: 08/02/19 17:27 DCW [id number]) Electric Stimulation Electric Stimulation Functional Electric Stimulation Body Location Lumbar Spine Duration (Minutes) 15 Patient Position Hooklying Combined With Heat/Cold Hot Pack PT-OP-T Assessment and Plan Start: 07/12/19 13:55 Freq: Status: Active Protocol: Document 09/08/19 16:02 HH (Rec: 09/08/19 17:27 HH [id number]) Physical Therapy Assessment Goals Return to hobby Impairment Pt is currently unable to do gardening work due to LBP Short Term Goal (STG) Pt will be able to start gardening >10 mins without increased LBP. STG Duration 5 weeks Senior Care Goal (LTG) Pt will be able to start gardening >20 mins without increased LBP. LTG Duration 10 weeks strength Impairment Pt demonstrates significant R LE weakness Short Term Goal (STG) Pt will be able to improve her RLE strength by 1/2 MMT grade Vocational Rehabilitation Teacher Goal (LTG) Pt will be able to improve her overall RLE strength by 1 MMT grade so she can bend over to pickle sorter object >20 lbs from low surface without increased pain. LTG Duration 10 weeks activity tolerance Impairment Pt has increased LBP with sitting/ standing >15 mins Short Term Goal (STG) Pt will have no more than >5/ 10 LBP for sitting/ standing > 15 mins STG Duration 5 weeks Vocational Rehabilitation Teacher Goal (LTG) Pt will have no more than >3/ 10 LBP for sitting/ standing > 30 mins LTG Duration 10 weeks Oswestry LBP Impairment Pt scores 56 (40-59% impairment) on Oswestry LBP questionnaire Short Term Goal (STG) Pt will score <40 (20-39% impairment) on Oswestry LBP questionnaire Vocational Rehabilitation Teacher Goal (LTG) Pt will score <20 (1-19% impairment) on Oswestry LBP questionnaire to improve her quality of life LTG Duration 10 weeks Assessment Summary Assessment Pt just returned from vacation who sat often that caused her back pain. Pt did show improvements in tolerance to pressure at R lateral hip. There's noticeable R lateral weight shift during SLS on RLE . Added SLS to HEP. Physical Therapy Plan Next Visit Focus/Plan Next Note Type Treatment Note Next Visit Plan review HEP SLS, hip abd strengtehning check pt's symptoms Continue current POC, advance as tolerated B hip stability training and strengthening as cesia NM layton on core stability during single leg stance MT for piriformis TrP/ hypertonicity
--- NOTE | 2019-09-13 18:59 | PT.OTN ---
Current Diagnoses Radiculopathy, lumbar region (09/13/19) Encounter for surgical aftercare following surgery on the nervous system (09/13/19) Physical Therapy Treatment Note PT-OP-A Visit Information Start: 07/12/19 13:55 Freq: Status: Active Protocol: Document 09/13/19 15:20 HH (Rec: 09/13/19 15:53 [id number]) Out-Patient Physical Therapy Visit Information Visit Information Visit Type Treatment Note Visit Note tx led by DENISSE Duncan Visit Start Time 15:20 Visit Stop Time 16:00 Total Visit Minutes 40 Visit Number Number of CARDBOARD CUTTER Visits 0 PT-OP-B Current Condition Start: 07/12/19 13:55 Freq: Status: Active Protocol: Document 07/12/19 13:00 HH (Rec: 07/12/19 14:30 [email or web address]) Current Condition History of Current Condition Onset Date Jun 02, 2019 Current Complaints s/p R L1-L2 partial laminectomy, LBP, radiating pain to R LE History of Current Condition Pt is a 64 yo female who presents to clinic today s/p s /p R L1-L2 partial laminectomy on 06/02/19 (5 1/2 weeks ago) at with Dr. Alonso. Pt currently follows do deep bending/ twisiting/ heavy lifting until 6 weeks post op. Pt stated her back pain and radiating RLE pain started from this December after she was lifting a ~60lbs object by twisting her back without taking steps. She is currently having ~7/10 pain in a daily basis which aggravated by staying in one position ( standing/sitting) for >15 mins . Changing position usually helps her symptoms but it affects her ability to focus on her current task at work. Pt does know all precautions and able to follow them safely since sx. She is currently in a tansitiont to reduce her pain med from oxycodone (daily ) to tramadol. She also has hx of chronic LBP with L4-L5 fusion in 2014, and she stated that Dr. Alonso suggested she might need another back surgery if this one with PT fails Future Testing and Treatments Planned Dr. Alonso suggested she might need another back surgery if this one with PT fails Treatment Goals Patient/Caregiver Goals 1. 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 To improve her core strength 3. 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 To be able to sail with her boat without pain. Prior Functional Status Baseline Function- ADL's Independent Baseline Function- Mobility Independent Baseline Function- Work/School able to sit/stand >1 hour Baseline Function- Recreation/Hobbies able to lift objects > 50 lbs without pain Current Functional Impairments (Reported) Functional Limitations- ADL's No Bending Lifting Twisting for 6 weeks (06/02), log roll for bed mobility Functional Limitations- Work/School unable to sit / stand > 15 minutes without increased pain Functional Limitations- Recreation/ unable to sail due to LBP/ Hobbies gardening PT-OP-C Subjective Start: 07/12/19 13:55 Freq: Status: Active Protocol: Document 09/13/19 15:20 HH (Rec: 09/13/19 15:53 HH [id number]) OP-PT Subjective Patient Comments Patient Comments I feel about the same during the past few days and especially on Thursday after doing shopping and sitting for awhile that kind of aggravates my pain. Patient Reported Progress Same PT-OP-D Balance Start: 07/12/19 13:55 Freq: Status: Active Protocol: Document 07/12/19 13:00 HH (Rec: 07/12/19 14:30 [email or web address]) Balance Tests Single Limb Standing Single Limb- Right >30 s Single Limb- Left >30 s Other Other Balance Tests Performed increase R lateral shift and increased R leg pain during SLS on R PT-OP-E Functional Tests Start: 07/12/19 13:55 Freq: Status: Active Protocol: Document 07/12/19 13:00 HH (Rec: 07/12/19 15:46 HH [email or web address]) Functional Tests Five Times Sit to Stand Test Score 21 PT-OP-F Manual Assessment Start: 07/12/19 13:55 Freq: Status: Active Protocol: Document 07/12/19 13:00 HH (Rec: 07/12/19 14:30 [email or web address]) Manual Assessments Soft Tissue Assessment Soft Tissue Mobility Assessment significant tenderness to pressure below R SIJ and piriformis PT-OP-H Neuro Start: 07/12/19 13:55 Freq: Status: Active Protocol: Document 07/12/19 13:00 HH (Rec: 07/12/19 14:30 HH [email or web address]) Sensation Evaluation Gross Sensation Gross Sensation Right LE Impaired Dermatome Impairments L5,S1 Comments Summary Comments decreased sensation to LT and pressure at lateral lower leg and R big toe. Deep Tendon Reflex & Clonus Assessment Deep Tendon Reflex Bilateral Achilles Deep Tendon Reflex 1+ Diminished Bilateral Patellar Deep Tendon Reflex 1+ Diminished PT-OP-J Posture/Palpation/Skin Start: 07/12/19 13:55 Freq: Status: Active Protocol: Document 07/12/19 13:00 HH (Rec: 07/12/19 14:30 HH [email or web address]) Posture Evaluation Position Standing Evaluation View Lateral T-Spine Posture Increased Kyphosis L-Spine Posture Increased Lordosis Weight Distribution Weight Shifted Anterior PT-OP-M Strength Start: 07/12/19 13:55 Freq: Status: Active Protocol: Document 07/12/19 13:00 HH (Rec: 07/12/19 14:30 [email or web address]) Hip Strength Hip Manual Muscle Testing Left Flexion (L2) 4+ Good+ Extension (S1) 4 Good Abduction 4+ Good+ Adduction 4+ Good+ External Rotation 4+ Good+ Internal Rotation 4+ Good+ Right Flexion (L2) 4- Good- Extension (S1) 3+ Fair+ Abduction 3+ Fair+ Adduction 4 Good External Rotation 3+ Fair+ Internal Rotation 3+ Fair+ Knee Strength Knee Manual Muscle Testing Left Flexion (S2) 4+ Good+ Extension (L3) 4+ Good+ Right Flexion (S2) 3+ Fair+ Extension (L3) 4 Good Comments increased R back pain during resisted R knee flexion Ankle/Foot Strength Ankle and Foot Manual Muscle Testing Left Dorsiflexion (L4) 4+ Good+ Plantarflexion (S1) 4+ Good+ Inversion 4+ Good+ Eversion (S1) 4+ Good+ Right Dorsiflexion (L4) 4- Good- Plantarflexion (S1) 4- Good- Inversion 4 Good Eversion (S1) 4 Good PT-OP-Q Treatments Start: 07/12/19 13:55 Freq: Status: Active Protocol: Document 09/13/19 15:20 HH (Rec: 09/13/19 15:53 HH [id number]) Cardio Equipment Recumbent Stepper (Sci-Fit) Duration (Minutes) 7 Resistance 5 Therapeutic Exercises Supine Exercises SLR Side right Reps/Minutes 8 x2 Sitting Exercises Ball reach Sitting Exercise Name ball roll out Side bilateral Equipment Used red [place] ball Reps/Minutes 4 mins Comments forward and diagonal Standing Exercises sit to stand Standing Exercise Name mini sit to stand without UE support Side bilateral Reps/Minutes 8 x2 side [address] in [address] Standing Exercise Name hands on hip to prevent hip drop Equipment Used with slider Reps/Minutes 8 each side x2 Comments to improve unilateral hip stability. step up Side bilateral Equipment Used 6inch box Reps/Minutes 5 x 2 Manual Therapy Treatment Soft Tissue Mobilization R ITB Mobilization Type Cross-Friction,Instrument Assisted,Rolling,Sustained Pressure Intensity/Depth Superficial Body Position Sidelying Comments with rolling pin R paraspinals Mobilization Type Cross-Friction,Rolling, Sustained Pressure Intensity/Depth Superficial Body Position Sidelying R piriformis Mobilization Type Sustained Pressure,Trigger Point Release Intensity/Depth Superficial Body Position Sidelying Nerve Glides supine sciatic nerve glide Body Position Supine Reps/Duration 8 x2 Comments from knee AROM 60 -0 degrees reports of increased neural tension with knee extension. PT-OP-R Modalities Start: 07/12/19 13:55 Freq: Status: Active Protocol: Document 08/02/19 16:50 DCW (Rec: 08/02/19 17:27 DCW [id number]) Electric Stimulation Electric Stimulation Functional Electric Stimulation Body Location Lumbar Spine Duration (Minutes) 15 Patient Position Hooklying Combined With Heat/Cold Hot Pack PT-OP-T Assessment and Plan Start: 07/12/19 13:55 Freq: Status: Active Protocol: Document 09/13/19 15:20 HH (Rec: 09/13/19 15:53 HH [id number]) Physical Therapy Assessment Goals Return to hobby Impairment Pt is currently unable to do gardening work due to LBP Short Term Goal (STG) Pt will be able to start gardening >10 mins without increased LBP. STG Duration 5 weeks Fdc Goal (LTG) Pt will be able to start gardening >20 mins without increased LBP. LTG Duration 10 weeks strength Impairment Pt demonstrates significant R LE weakness Short Term Goal (STG) Pt will be able to improve her RLE strength by 1/2 MMT grade Fdc Goal (LTG) Pt will be able to improve her overall RLE strength by 1 MMT grade so she can bend over to strip picker object >20 lbs from low surface without increased pain. LTG Duration 10 weeks activity tolerance Impairment Pt has increased LBP with sitting/ standing >15 mins Short Term Goal (STG) Pt will have no more than >5/ 10 LBP for sitting/ standing > 15 mins STG Duration 5 weeks Fdc Goal (LTG) Pt will have no more than >3/ 10 LBP for sitting/ standing > 30 mins LTG Duration 10 weeks Oswestry LBP Impairment Pt scores 56 (40-59% impairment) on Oswestry LBP questionnaire Short Term Goal (STG) Pt will score <40 (20-39% impairment) on Oswestry LBP questionnaire Fdc Goal (LTG) Pt will score <20 (1-19% impairment) on Oswestry LBP questionnaire to improve her quality of life LTG Duration 10 weeks Assessment Summary Assessment Pt cont to demonstrate high sx irritability with manual therapy, but improving tolerance for inc'd pressure. Pt reports sx reproduction in lateral calf with MT. Focused on hip hinge strategies and L LE SLS. Pt tolerated inc'd strengthening during today's session well and noted improved sx after hip hinge movements. Physical Therapy Plan Next Visit Focus/Plan Next Note Type Treatment Note Next Visit Plan review HEP focus on SLS, hip abd strengtehning, hip hinge strategies check pt's symptoms Continue current POC, advance as tolerated B hip stability training and strengthening as cesia NM layton on core stability during single leg stance MT for piriformis TrP/ hypertonicity
--- NOTE | 2019-09-15 16:16 | PT.OTN ---
Current Diagnoses Radiculopathy, lumbar region (09/15/19) Encounter for surgical aftercare following surgery on the nervous system (09/15/19) Physical Therapy Treatment Note PT-OP-A Visit Information Start: 07/12/19 13:55 Freq: Status: Active Protocol: Document 09/15/19 15:17 (Rec: 09/15/19 16:16 [id number]) Out-Patient Physical Therapy Visit Information Visit Information Visit Type Treatment Note Visit Note tx led by DENISSE Duncan Visit Start Time 15:17 Visit Stop Time 15:59 Total Visit Minutes 42 Visit Number Number of CHIEF EXECUTIVE OR MANAGING DIRECTOR Visits 0 PT-OP-B Current Condition Start: 07/12/19 13:55 Freq: Status: Active Protocol: Document 07/12/19 13:00 HH (Rec: 07/12/19 14:30 [email or web address]) Current Condition History of Current Condition Onset Date Jun 02, 2019 Current Complaints s/p R L1-L2 partial laminectomy, LBP, radiating pain to R LE History of Current Condition Pt is a 64 yo female who presents to clinic today s/p s /p R L1-L2 partial laminectomy on 06/02/19 (5 1/2 weeks ago) at with Dr. Alonso. Pt currently follows do deep bending/ twisiting/ heavy lifting until 6 weeks post op. Pt stated her back pain and radiating RLE pain started from this December after she was lifting a ~60lbs object by twisting her back without taking steps. She is currently having ~7/10 pain in a daily basis which aggravated by staying in one position ( standing/sitting) for >15 mins . Changing position usually helps her symptoms but it affects her ability to focus on her current task at work. Pt does know all precautions and able to follow them safely since sx. She is currently in a tansitiont to reduce her pain med from oxycodone (daily ) to tramadol. She also has hx of chronic LBP with L4-L5 fusion in 2014, and she stated that Dr. Alonso suggested she might need another back surgery if this one with PT fails Future Testing and Treatments Planned Dr. Alonso suggested she might need another back surgery if this one with PT fails Treatment Goals Patient/Caregiver Goals 1. 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 To improve her core strength 3. 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 To be able to sail with her boat without pain. Prior Functional Status Baseline Function- ADL's Independent Baseline Function- Mobility Independent Baseline Function- Work/School able to sit/stand >1 hour Baseline Function- Recreation/Hobbies able to lift objects > 50 lbs without pain Current Functional Impairments (Reported) Functional Limitations- ADL's No Bending Lifting Twisting for 6 weeks (06/02), log roll for bed mobility Functional Limitations- Work/School unable to sit / stand > 15 minutes without increased pain Functional Limitations- Recreation/ unable to sail due to LBP/ Hobbies gardening PT-OP-C Subjective Start: 07/12/19 13:55 Freq: Status: Active Protocol: Document 09/15/19 15:17 HH (Rec: 09/15/19 16:16 HH [id number]) OP-PT Subjective Patient Comments Patient Comments I feel a little bit sore the past few days especially being on the car ride to [place] from yesterday was rough to me . I was sitting on the passenger side and couldnt get comfortable. Patient Reported Progress Same PT-OP-D Balance Start: 07/12/19 13:55 Freq: Status: Active Protocol: Document 07/12/19 13:00 HH (Rec: 07/12/19 14:30 [email or web address]) Balance Tests Single Limb Standing Single Limb- Right >30 s Single Limb- Left >30 s Other Other Balance Tests Performed increase R lateral shift and increased R leg pain during SLS on R PT-OP-E Functional Tests Start: 07/12/19 13:55 Freq: Status: Active Protocol: Document 07/12/19 13:00 HH (Rec: 07/12/19 15:46 HH [email or web address]) Functional Tests Five Times Sit to Stand Test Score 21 PT-OP-F Manual Assessment Start: 07/12/19 13:55 Freq: Status: Active Protocol: Document 07/12/19 13:00 HH (Rec: 07/12/19 14:30 HH [email or web address]) Manual Assessments Soft Tissue Assessment Soft Tissue Mobility Assessment significant tenderness to pressure below R SIJ and piriformis PT-OP-H Neuro Start: 07/12/19 13:55 Freq: Status: Active Protocol: Document 07/12/19 13:00 HH (Rec: 07/12/19 14:30 [email or web address]) Sensation Evaluation Gross Sensation Gross Sensation Right LE Impaired Dermatome Impairments L5,S1 Comments Summary Comments decreased sensation to LT and pressure at lateral lower leg and R big toe. Deep Tendon Reflex & Clonus Assessment Deep Tendon Reflex Bilateral Achilles Deep Tendon Reflex 1+ Diminished Bilateral Patellar Deep Tendon Reflex 1+ Diminished PT-OP-J Posture/Palpation/Skin Start: 07/12/19 13:55 Freq: Status: Active Protocol: Document 07/12/19 13:00 HH (Rec: 07/12/19 14:30 [email or web address]) Posture Evaluation Position Standing Evaluation View Lateral T-Spine Posture Increased Kyphosis L-Spine Posture Increased Lordosis Weight Distribution Weight Shifted Anterior PT-OP-M Strength Start: 07/12/19 13:55 Freq: Status: Active Protocol: Document 07/12/19 13:00 HH (Rec: 07/12/19 14:30 [email or web address]) Hip Strength Hip Manual Muscle Testing Left Flexion (L2) 4+ Good+ Extension (S1) 4 Good Abduction 4+ Good+ Adduction 4+ Good+ External Rotation 4+ Good+ Internal Rotation 4+ Good+ Right Flexion (L2) 4- Good- Extension (S1) 3+ Fair+ Abduction 3+ Fair+ Adduction 4 Good External Rotation 3+ Fair+ Internal Rotation 3+ Fair+ Knee Strength Knee Manual Muscle Testing Left Flexion (S2) 4+ Good+ Extension (L3) 4+ Good+ Right Flexion (S2) 3+ Fair+ Extension (L3) 4 Good Comments increased R back pain during resisted R knee flexion Ankle/Foot Strength Ankle and Foot Manual Muscle Testing Left Dorsiflexion (L4) 4+ Good+ Plantarflexion (S1) 4+ Good+ Inversion 4+ Good+ Eversion (S1) 4+ Good+ Right Dorsiflexion (L4) 4- Good- Plantarflexion (S1) 4- Good- Inversion 4 Good Eversion (S1) 4 Good PT-OP-Q Treatments Start: 07/12/19 13:55 Freq: Status: Active Protocol: Document 09/15/19 15:17 HH (Rec: 09/15/19 16:16 [id number]) Cardio Equipment Recumbent Stepper (Sci-Fit) Duration (Minutes) 7 Resistance 4 Therapeutic Exercises Sitting Exercises seated pelvic tilt Side bilateral Equipment Used red kuwaiti ball Reps/Minutes 4 mins Ball reach Sitting Exercise Name ball roll out Side bilateral Equipment Used red kuwaiti ball Reps/Minutes 4 mins Comments forward and diagonal Standing Exercises side step up Standing Exercise Name with contralateral toe tap on floor Equipment Used 8 inch box Reps/Minutes 8 x2 Comments verbal cues on knee toe alignment. to prevent medial collapse. standing pelvic tilt Standing Exercise Name standing pelvic tilt Reps/Minutes 3 mins Comments tactile cues on isolated tilt. step up Standing Exercise Name on stairs Side bilateral Equipment Used 6inch box Reps/Minutes 8 x 3 each leg. SLS Standing Exercise Name with slider, fwd, lateral and bwd Side bilateral Comments primarily on RLE, facilitate R hip stability. Manual Therapy Treatment Joint Mobilizations lumbar distraction Direction inferior Grade II Body Position Supine Reps/Duration 10 secs hold x 5 R hip distraction Joint R hip joint Direction inferior Grade II Body Position Supine Reps/Duration 10secs hold x5 PT-OP-R Modalities Start: 07/12/19 13:55 Freq: Status: Active Protocol: Document 08/02/19 16:50 DCW (Rec: 08/02/19 17:27 DCW [id number]) Electric Stimulation Electric Stimulation Functional Electric Stimulation Body Location Lumbar Spine Duration (Minutes) 15 Patient Position Hooklying Combined With Heat/Cold Hot Pack PT-OP-T Assessment and Plan Start: 07/12/19 13:55 Freq: Status: Active Protocol: Document 09/15/19 15:17 HH (Rec: 09/15/19 16:16 HH [id number]) Physical Therapy Assessment Goals Return to hobby Impairment Pt is currently unable to do gardening work due to LBP Short Term Goal (STG) Pt will be able to start gardening >10 mins without increased LBP. STG Duration 5 weeks Digital Watch Assembler Goal (LTG) Pt will be able to start gardening >20 mins without increased LBP. 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 LTG Duration 10 weeks activity tolerance Impairment Pt has increased LBP with sitting/ standing >15 mins Short Term Goal (STG) Pt will have no more than >5/ 10 LBP for sitting/ standing > 15 mins STG Duration 5 weeks Digital Watch Assembler Goal (LTG) Pt will have no more than >3/ 10 LBP for sitting/ standing > 30 mins LTG Duration 10 weeks Oswestry LBP Impairment Pt scores 56 (40-59% impairment) on Oswestry LBP questionnaire Short Term Goal (STG) Pt will score <40 (20-39% impairment) on Oswestry LBP questionnaire Digital Watch Assembler Goal (LTG) Pt will score <20 (1-19% impairment) on Oswestry LBP questionnaire to improve her quality of life LTG Duration 10 weeks Assessment Summary Assessment Pt cont to demonstrate high sx irritability with movement and ex, but she agreed to focus Tx focused on lumbar AROM, hip stability and single leg strengthening. Pt did not c/o increased discomfort. Changed POC to 1x /week x 4 weeks to cont focus on hip stability training and overall LLE strengthening. Physical Therapy Plan Next Visit Focus/Plan Next Note Type Treatment Note Next Visit Plan review HEP focus on SLS, hip abd strengtehning, hip hinge strategies check pt's symptoms Continue current POC, advance as tolerated B hip stability training and strengthening as cesia NM layton on core stability during single leg stance MT for piriformis TrP/ hypertonicity
--- NOTE | 2019-09-20 17:06 | PT.OPPOC ---
Current Diagnoses Radiculopathy, lumbar region (09/20/19) Encounter for surgical aftercare following surgery on the nervous system (09/20/19) Visit Care Team Role Provider Type Erinn Gresham PA-C Primary Care Provider Advanced Liaison Planner Specialty: Medical Address: [address] [place] [address], [address], [place], [address] Email: [email or web address] Lin Armijo PA-C Attending Provider Non-Staff Specialty: Nursing Address: [address] [place] [address], [address], [place], [address] Email: Plan Of Care PT-OP-T Assessment and Plan Start: 07/12/19 13:55 Freq: Status: Active Protocol: Document 09/20/19 16:01 HH (Rec: 09/20/19 17:05 [id number]) Physical Therapy Assessment Goals Return to hobby Impairment Pt is currently unable to do gardening work due to LBP Short Term Goal (STG) Pt will be able to start gardening >10 mins without increased LBP. STG Duration 5 weeks Electronic Engraver Goal (LTG) 09/20 in progress: Pt has not attempted any gardening work since sx. Pt will be able to start gardening >20 mins without increased LBP. LTG Duration 10 weeks strength Impairment Pt demonstrates significant R LE weakness Short Term Goal (STG) Pt will be able to improve her RLE strength by 1/2 MMT grade Electronic Engraver Goal (LTG) 09/20 in progress: Pt will be able to improve her overall RLE strength by 1 MMT grade so she can bend over to burr picker object >20 lbs from low surface without increased pain. LTG Duration 10 weeks activity tolerance Impairment Pt has increased LBP with sitting/ standing >15 mins Short Term Goal (STG) Pt will have no more than >5/ 10 LBP for sitting/ standing > 15 mins STG Duration 5 weeks Electronic Engraver Goal (LTG) 09/20 in progress: Pt is able to cesia about 30 mins of driving but does have pain 3-5/10. Pain at [address] Pt will have no more than >3/ 10 LBP for sitting/ standing > 30 mins LTG Duration 10 weeks Oswestry LBP Impairment Pt scores 56 (40-59% impairment) on Oswestry LBP questionnaire Short Term Goal (STG) Pt will score <40 (20-39% impairment) on Oswestry LBP questionnaire Custodial Goal (LTG) 09/20 cont in progress: pt scores 62 today but she reports she has been reduced her medication by half since IE. Pt will score <20 (1-19% impairment) on Oswestry LBP questionnaire to improve her quality of life LTG Duration 10 weeks Progress Towards Goals Progress Towards Goals Slow Progress due to Activity Tolerance,Slow Progress - Other Assessment Summary Assessment Pt cont to progress slowly and easily irritated. She cont to have difficulty maintaining one position (seated/standing) without increase in back pain . However, Pt has been showing improved single leg strength and balance. Although pt scores her Oswestry LBP = 62 today, pt reports she has been reducing her medication dosage by half. Pt will cont benefit from skilled therapy to improve her core strength, stability , B LE strenghtening and stability training. Physical Therapy Plan Frequency and Duration Frequency of Treatment 1x/Week Duration of Treatment 6 Plan of Care Start Date 09/20/19 Plan of Care End Date 11/04/19 Next Visit Focus/Plan Next Note Type Treatment Note Next Visit Plan review HEP core strengthening focus on SLS, hip abd strengtehning, hip hinge strategies check pt's symptoms Continue current POC, advance as tolerated B hip stability training and strengthening as cesia NM layton on core stability during single leg stance MT for piriformis TrP/ hypertonicity Plan of Care Dates Plan of Care Start Date 09/20/19 Plan of Care End Date 11/04/19
--- NOTE | 2019-09-20 17:36 | PT.OTN ---
Current Diagnoses Radiculopathy, lumbar region (09/20/19) Encounter for surgical aftercare following surgery on the nervous system (09/20/19) Physical Therapy Treatment Note PT-OP-A Visit Information Start: 07/12/19 13:55 Freq: Status: Active Protocol: Document 09/20/19 16:01 (Rec: 09/20/19 17:05 [id number]) Out-Patient Physical Therapy Visit Information Visit Information Visit Type Treatment Note Visit Note tx led by DENISSE Duncan Visit Start Time 16:01 Visit Stop Time 16:44 Total Visit Minutes 43 Visit Number Number of HOOD FITTER Visits 0 PT-OP-B Current Condition Start: 07/12/19 13:55 Freq: Status: Active Protocol: Document 07/12/19 13:00 (Rec: 07/12/19 14:30 [email or web address]) Current Condition History of Current Condition Onset Date Jun 02, 2019 Current Complaints s/p R L1-L2 partial laminectomy, LBP, radiating pain to R LE History of Current Condition Pt is a 64 yo female who presents to clinic today s/p s /p R L1-L2 partial laminectomy on 06/02/19 (5 1/2 weeks ago) at with Dr. Alonso. Pt currently follows do deep bending/ twisiting/ heavy lifting until 6 weeks post op. Pt stated her back pain and radiating RLE pain started from this December after she was lifting a ~60lbs object by twisting her back without taking steps. She is currently having ~7/10 pain in a daily basis which aggravated by staying in one position ( standing/sitting) for >15 mins . Changing position usually helps her symptoms but it affects her ability to focus on her current task at work. Pt does know all precautions and able to follow them safely since sx. She is currently in a tansitiont to reduce her pain med from oxycodone (daily ) to tramadol. She also has hx of chronic LBP with L4-L5 fusion in 2014, and she stated that Dr. Alonso suggested she might need another back surgery if this one with PT fails Future Testing and Treatments Planned Dr. Alonso suggested she might need another back surgery if this one with PT fails Treatment Goals Patient/Caregiver Goals 1. 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 To be able to sail with her boat without pain. Prior Functional Status Baseline Function- ADL's Independent Baseline Function- Mobility Independent Baseline Function- Work/School able to sit/stand >1 hour Baseline Function- Recreation/Hobbies able to lift objects > 50 lbs without pain Current Functional Impairments (Reported) Functional Limitations- ADL's No Bending Lifting Twisting for 6 weeks (06/02), log roll for bed mobility Functional Limitations- Work/School unable to sit / stand > 15 minutes without increased pain Functional Limitations- Recreation/ unable to sail due to LBP/ Hobbies gardening PT-OP-C Subjective Start: 07/12/19 13:55 Freq: Status: Active Protocol: Document 09/20/19 16:01 (Rec: 09/20/19 17:36 [id number]) OP-PT Subjective Patient Comments Patient Comments I was really sore at the end of last week, I think I was pushing too far when I was doing the extension during pelvic tilts. Then Thursday I felt great and yesterday I hurt again after work. I feel like my pain just comes and goes now. PT-OP-D Balance Start: 07/12/19 13:55 Freq: Status: Active Protocol: Document 07/12/19 13:00 HH (Rec: 07/12/19 14:30 [email or web address]) Balance Tests Single Limb Standing Single Limb- Right >30 s Single Limb- Left >30 s Other Other Balance Tests Performed increase R lateral shift and increased R leg pain during SLS on R PT-OP-E Functional Tests Start: 07/12/19 13:55 Freq: Status: Active Protocol: Document 07/12/19 13:00 (Rec: 07/12/19 15:46 [email or web address]) Functional Tests Five Times Sit to Stand Test Score 21 PT-OP-F Manual Assessment Start: 07/12/19 13:55 Freq: Status: Active Protocol: Document 07/12/19 13:00 (Rec: 07/12/19 14:30 [email or web address]) Manual Assessments Soft Tissue Assessment Soft Tissue Mobility Assessment significant tenderness to pressure below R SIJ and piriformis PT-OP-H Neuro Start: 07/12/19 13:55 Freq: Status: Active Protocol: Document 07/12/19 13:00 HH (Rec: 07/12/19 14:30 HH [email or web address]) Sensation Evaluation Gross Sensation Gross Sensation Right LE Impaired Dermatome Impairments L5,S1 Comments Summary Comments decreased sensation to LT and pressure at lateral lower leg and R big toe. Deep Tendon Reflex & Clonus Assessment Deep Tendon Reflex Bilateral Achilles Deep Tendon Reflex 1+ Diminished Bilateral Patellar Deep Tendon Reflex 1+ Diminished PT-OP-J Posture/Palpation/Skin Start: 07/12/19 13:55 Freq: Status: Active Protocol: Document 07/12/19 13:00 HH (Rec: 07/12/19 14:30 HH [email or web address]) Posture Evaluation Position Standing Evaluation View Lateral T-Spine Posture Increased Kyphosis L-Spine Posture Increased Lordosis Weight Distribution Weight Shifted Anterior PT-OP-M Strength Start: 07/12/19 13:55 Freq: Status: Active Protocol: Document 07/12/19 13:00 HH (Rec: 07/12/19 14:30 HH [email or web address]) Hip Strength Hip Manual Muscle Testing Left Flexion (L2) 4+ Good+ Extension (S1) 4 Good Abduction 4+ Good+ Adduction 4+ Good+ External Rotation 4+ Good+ Internal Rotation 4+ Good+ Right Flexion (L2) 4- Good- Extension (S1) 3+ Fair+ Abduction 3+ Fair+ Adduction 4 Good External Rotation 3+ Fair+ Internal Rotation 3+ Fair+ Knee Strength Knee Manual Muscle Testing Left Flexion (S2) 4+ Good+ Extension (L3) 4+ Good+ Right Flexion (S2) 3+ Fair+ Extension (L3) 4 Good Comments increased R back pain during resisted R knee flexion Ankle/Foot Strength Ankle and Foot Manual Muscle Testing Left Dorsiflexion (L4) 4+ Good+ Plantarflexion (S1) 4+ Good+ Inversion 4+ Good+ Eversion (S1) 4+ Good+ Right Dorsiflexion (L4) 4- Good- Plantarflexion (S1) 4- Good- Inversion 4 Good Eversion (S1) 4 Good PT-OP-Q Treatments Start: 07/12/19 13:55 Freq: Status: Active Protocol: Document 09/20/19 16:01 HH (Rec: 09/20/19 17:05 HH [id number]) Cardio Equipment Recumbent Stepper (Sci-Fit) Duration (Minutes) 7 Resistance 4 Therapeutic Exercises Sitting Exercises seated pelvic tilt Side bilateral Equipment Used red puerto rican ball Reps/Minutes 4 mins tennis ball release Sitting Exercise Name standing at B buttocks Side bilateral Reps/Minutes 3 mins Ball reach Sitting Exercise Name ball roll out Side bilateral Equipment Used red [place] ball Reps/Minutes 4 mins Comments forward and diagonal Standing Exercises slider Standing Exercise Name hip hinge position (opp leg fwd, lateral and bwd slide) Side bilateral Reps/Minutes 5 rounds x 2 side step up Standing Exercise Name with contralateral toe tap on floor Equipment Used 8 inch box Reps/Minutes 8 x2 Comments verbal cues on knee toe alignment. to prevent medial collapse. step up Standing Exercise Name on stairs Side bilateral Equipment Used 8 inch box Reps/Minutes 8 x 3 each leg. SLS Standing Exercise Name with slider, fwd, lateral and bwd Side bilateral Comments primarily on RLE, facilitate R hip stability. PT-OP-R Modalities Start: 07/12/19 13:55 Freq: Status: Active Protocol: Document 08/02/19 16:50 DCW (Rec: 08/02/19 17:27 DCW [id number]) Electric Stimulation Electric Stimulation Functional Electric Stimulation Body Location Lumbar Spine Duration (Minutes) 15 Patient Position Hooklying Combined With Heat/Cold Hot Pack PT-OP-T Assessment and Plan Start: 07/12/19 13:55 Freq: Status: Active Protocol: Document 09/20/19 16:01 HH (Rec: 09/20/19 17:05 HH [id number]) Physical Therapy Assessment Goals Return to hobby Impairment Pt is currently unable to do gardening work due to LBP Short Term Goal (STG) Pt will be able to start gardening >10 mins without increased LBP. STG Duration 5 weeks Fdc Goal (LTG) 09/20 in progress: Pt has not attempted any gardening work since sx. Pt will be able to start gardening >20 mins without increased LBP. LTG Duration 10 weeks strength Impairment Pt demonstrates significant R LE weakness Short Term Goal (STG) Pt will be able to improve her RLE strength by 1/2 MMT grade Fdc Goal (LTG) 09/20 in progress: Pt will be able to improve her overall RLE strength by 1 MMT grade so she can bend over to hand picker object >20 lbs from low surface without increased pain. LTG Duration 10 weeks activity tolerance Impairment Pt has increased LBP with sitting/ standing >15 mins Short Term Goal (STG) Pt will have no more than >5/ 10 LBP for sitting/ standing > 15 mins STG Duration 5 weeks Fdc Goal (LTG) 09/20 in progress: Pt is able to cesia about 30 mins of driving but does have pain 3-5/10. Pain at [address] Pt will have no more than >3/ 10 LBP for sitting/ standing > 30 mins LTG Duration 10 weeks Oswestry LBP Impairment Pt scores 56 (40-59% impairment) on Oswestry LBP questionnaire Short Term Goal (STG) Pt will score <40 (20-39% impairment) on Oswestry LBP questionnaire Plaster Helper Goal (LTG) 09/20 cont in progress: pt scores 62 today but she reports she has been reduced her medication by half since IE. Pt will score <20 (1-19% impairment) on Oswestry LBP questionnaire to improve her quality of life LTG Duration 10 weeks Progress Towards Goals Progress Towards Goals Slow Progress due to Activity Tolerance,Slow Progress - Other Assessment Summary Assessment Pt cont to progress slowly and easily irritated. She cont to have difficulty maintaining one position (seated/standing) without increase in back pain . However, Pt has been showing improved single leg strength and balance. Although pt scores her Oswestry LBP = 62 today, pt reports she has been reducing her medication dosage by half. Pt will cont benefit from skilled therapy to improve her core strength, stability , B LE strenghtening and stability training. Physical Therapy Plan Frequency and Duration Frequency of Treatment 1x/Week Duration of Treatment 6 Plan of Care Start Date 09/20/19 Plan of Care End Date 11/04/19 Next Visit Focus/Plan Next Note Type Treatment Note Next Visit Plan review HEP core strengthening focus on SLS, hip abd strengtehning, hip hinge strategies check pt's symptoms Continue current POC, advance as tolerated B hip stability training and strengthening as cesia NM layton on core stability during single leg stance MT for piriformis TrP/ hypertonicity
--- NOTE | 2019-09-20 18:28 | PT.OPPOC ---
Current Diagnoses Radiculopathy, lumbar region (09/20/19) Encounter for surgical aftercare following surgery on the nervous system (09/20/19) Visit Care Team Role Provider Type Erinn Gresham PA-C Primary Care Provider Advanced Leather Belt Shaper Specialty: Medical Address: [address] [place] [address], [address], [place], [address] Email: [email or web address] Lin Armijo PA-C Attending Provider Non-Staff Specialty: Nursing Address: [address] [place] [address], [address], [place], [address] Email: Plan Of Care PT-OP-T Assessment and Plan Start: 07/12/19 13:55 Freq: Status: Active Protocol: Document 09/20/19 16:01 HH (Rec: 09/20/19 17:05 [id number]) Physical Therapy Assessment Goals Return to hobby Impairment Pt is currently unable to do gardening work due to LBP Short Term Goal (STG) Pt will be able to start gardening >10 mins without increased LBP. STG Duration 5 weeks Launch Manager Goal (LTG) 09/20 in progress: Pt has not attempted any gardening work since sx. Pt will be able to start gardening >20 mins without increased LBP. LTG Duration 10 weeks strength Impairment Pt demonstrates significant R LE weakness Short Term Goal (STG) Pt will be able to improve her RLE strength by 1/2 MMT grade Launch Manager Goal (LTG) 09/20 in progress: Pt will be able to improve her overall RLE strength by 1 MMT grade so she can bend over to black pickler object >20 lbs from low surface without increased pain. LTG Duration 10 weeks activity tolerance Impairment Pt has increased LBP with sitting/ standing >15 mins Short Term Goal (STG) Pt will have no more than >5/ 10 LBP for sitting/ standing > 15 mins STG Duration 5 weeks Launch Manager Goal (LTG) 09/20 in progress: Pt is able to cesia about 30 mins of driving but does have pain 3-5/10. Pain at [address] Pt will have no more than >3/ 10 LBP for sitting/ standing > 30 mins LTG Duration 10 weeks Oswestry LBP Impairment Pt scores 56 (40-59% impairment) on Oswestry LBP questionnaire Short Term Goal (STG) Pt will score <40 (20-39% impairment) on Oswestry LBP questionnaire [facility] Goal (LTG) 09/20 cont in progress: pt scores 62 today but she reports she has been reduced her medication by half since IE. Pt will score <20 (1-19% impairment) on Oswestry LBP questionnaire to improve her quality of life LTG Duration 10 weeks Progress Towards Goals Progress Towards Goals Slow Progress due to Activity Tolerance,Slow Progress - Other Assessment Summary Assessment Pt cont to progress slowly and easily irritated. She cont to have difficulty maintaining one position (seated/standing) without increase in back pain . However, Pt has been showing improved single leg strength and balance. Although pt scores her Oswestry LBP = 62 today, pt reports she has been reducing her medication dosage by half. Pt will cont benefit from skilled therapy to improve her core strength, stability , B LE strenghtening and stability training. Physical Therapy Plan Frequency and Duration Frequency of Treatment 2x/wk x2 f/b 1x/wkx4 Duration of Treatment 6 Plan of Care Start Date 09/20/19 Plan of Care End Date 11/04/19 Next Visit Focus/Plan Next Note Type Treatment Note Next Visit Plan review HEP core strengthening focus on SLS, hip abd strengtehning, hip hinge strategies check pt's symptoms Continue current POC, advance as tolerated B hip stability training and strengthening as cesia NM layton on core stability during single leg stance MT for piriformis TrP/ hypertonicity Plan of Care Dates Plan of Care Start Date 09/20/19 Plan of Care End Date 11/04/19
--- NOTE | 2019-09-20 18:28 | PT.OTN ---
Current Diagnoses Radiculopathy, lumbar region (09/20/19) Encounter for surgical aftercare following surgery on the nervous system (09/20/19) Physical Therapy Treatment Note PT-OP-A Visit Information Start: 07/12/19 13:55 Freq: Status: Active Protocol: Document 09/20/19 16:01 (Rec: 09/20/19 17:05 [id number]) Out-Patient Physical Therapy Visit Information Visit Information Visit Type Treatment Note Visit Note tx led by DENISSE Duncan Visit Start Time 16:01 Visit Stop Time 16:44 Total Visit Minutes 43 Visit Number Number of LOG TRUCK DRIVER Visits 0 PT-OP-B Current Condition Start: 07/12/19 13:55 Freq: Status: Active Protocol: Document 07/12/19 13:00 (Rec: 07/12/19 14:30 [email or web address]) Current Condition History of Current Condition Onset Date Jun 02, 2019 Current Complaints s/p R L1-L2 partial laminectomy, LBP, radiating pain to R LE History of Current Condition Pt is a 64 yo female who presents to clinic today s/p s /p R L1-L2 partial laminectomy on 06/02/19 (5 1/2 weeks ago) at with Dr. Alonso. Pt currently follows do deep bending/ twisiting/ heavy lifting until 6 weeks post op. Pt stated her back pain and radiating RLE pain started from this December after she was lifting a ~60lbs object by twisting her back without taking steps. She is currently having ~7/10 pain in a daily basis which aggravated by staying in one position ( standing/sitting) for >15 mins . Changing position usually helps her symptoms but it affects her ability to focus on her current task at work. Pt does know all precautions and able to follow them safely since sx. She is currently in a tansitiont to reduce her pain med from oxycodone (daily ) to tramadol. She also has hx of chronic LBP with L4-L5 fusion in 2014, and she stated that Dr. Alonso suggested she might need another back surgery if this one with PT fails Future Testing and Treatments Planned Dr. Alonso suggested she might need another back surgery if this one with PT fails Treatment Goals Patient/Caregiver Goals 1. 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 To improve her core strength 3. 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 To be able to sail with her boat without pain. Prior Functional Status Baseline Function- ADL's Independent Baseline Function- Mobility Independent Baseline Function- Work/School able to sit/stand >1 hour Baseline Function- Recreation/Hobbies able to lift objects > 50 lbs without pain Current Functional Impairments (Reported) Functional Limitations- ADL's No Bending Lifting Twisting for 6 weeks (06/02), log roll for bed mobility Functional Limitations- Work/School unable to sit / stand > 15 minutes without increased pain Functional Limitations- Recreation/ unable to sail due to LBP/ Hobbies gardening PT-OP-C Subjective Start: 07/12/19 13:55 Freq: Status: Active Protocol: Document 09/20/19 16:01 (Rec: 09/20/19 17:36 [id number]) OP-PT Subjective Patient Comments Patient Comments I was really sore at the end of last week, I think I was pushing too far when I was doing the extension during pelvic tilts. Then Thursday I felt great and yesterday I hurt again after work. I feel like my pain just comes and goes now. PT-OP-D Balance Start: 07/12/19 13:55 Freq: Status: Active Protocol: Document 07/12/19 13:00 HH (Rec: 07/12/19 14:30 [email or web address]) Balance Tests Single Limb Standing Single Limb- Right >30 s Single Limb- Left >30 s Other Other Balance Tests Performed increase R lateral shift and increased R leg pain during SLS on R PT-OP-E Functional Tests Start: 07/12/19 13:55 Freq: Status: Active Protocol: Document 07/12/19 13:00 (Rec: 07/12/19 15:46 [email or web address]) Functional Tests Five Times Sit to Stand Test Score 21 PT-OP-F Manual Assessment Start: 07/12/19 13:55 Freq: Status: Active Protocol: Document 07/12/19 13:00 (Rec: 07/12/19 14:30 [email or web address]) Manual Assessments Soft Tissue Assessment Soft Tissue Mobility Assessment significant tenderness to pressure below R SIJ and piriformis PT-OP-H Neuro Start: 07/12/19 13:55 Freq: Status: Active Protocol: Document 07/12/19 13:00 HH (Rec: 07/12/19 14:30 HH [email or web address]) Sensation Evaluation Gross Sensation Gross Sensation Right LE Impaired Dermatome Impairments L5,S1 Comments Summary Comments decreased sensation to LT and pressure at lateral lower leg and R big toe. Deep Tendon Reflex & Clonus Assessment Deep Tendon Reflex Bilateral Achilles Deep Tendon Reflex 1+ Diminished Bilateral Patellar Deep Tendon Reflex 1+ Diminished PT-OP-J Posture/Palpation/Skin Start: 07/12/19 13:55 Freq: Status: Active Protocol: Document 07/12/19 13:00 HH (Rec: 07/12/19 14:30 HH [email or web address]) Posture Evaluation Position Standing Evaluation View Lateral T-Spine Posture Increased Kyphosis L-Spine Posture Increased Lordosis Weight Distribution Weight Shifted Anterior PT-OP-M Strength Start: 07/12/19 13:55 Freq: Status: Active Protocol: Document 07/12/19 13:00 HH (Rec: 07/12/19 14:30 HH [email or web address]) Hip Strength Hip Manual Muscle Testing Left Flexion (L2) 4+ Good+ Extension (S1) 4 Good Abduction 4+ Good+ Adduction 4+ Good+ External Rotation 4+ Good+ Internal Rotation 4+ Good+ Right Flexion (L2) 4- Good- Extension (S1) 3+ Fair+ Abduction 3+ Fair+ Adduction 4 Good External Rotation 3+ Fair+ Internal Rotation 3+ Fair+ Knee Strength Knee Manual Muscle Testing Left Flexion (S2) 4+ Good+ Extension (L3) 4+ Good+ Right Flexion (S2) 3+ Fair+ Extension (L3) 4 Good Comments increased R back pain during resisted R knee flexion Ankle/Foot Strength Ankle and Foot Manual Muscle Testing Left Dorsiflexion (L4) 4+ Good+ Plantarflexion (S1) 4+ Good+ Inversion 4+ Good+ Eversion (S1) 4+ Good+ Right Dorsiflexion (L4) 4- Good- Plantarflexion (S1) 4- Good- Inversion 4 Good Eversion (S1) 4 Good PT-OP-Q Treatments Start: 07/12/19 13:55 Freq: Status: Active Protocol: Document 09/20/19 16:01 HH (Rec: 09/20/19 17:05 HH [id number]) Cardio Equipment Recumbent Stepper (Sci-Fit) Duration (Minutes) 7 Resistance 4 Therapeutic Exercises Sitting Exercises seated pelvic tilt Side bilateral Equipment Used red colombian ball Reps/Minutes 4 mins tennis ball release Sitting Exercise Name standing at B buttocks Side bilateral Reps/Minutes 3 mins Ball reach Sitting Exercise Name ball roll out Side bilateral Equipment Used red colombian ball Reps/Minutes 4 mins Comments forward and diagonal Standing Exercises slider Standing Exercise Name hip hinge position (opp leg fwd, lateral and bwd slide) Side bilateral Reps/Minutes 5 rounds x 2 side step up Standing Exercise Name with contralateral toe tap on floor Equipment Used 8 inch box Reps/Minutes 8 x2 Comments verbal cues on knee toe alignment. to prevent medial collapse. step up Standing Exercise Name on stairs Side bilateral Equipment Used 8 inch box Reps/Minutes 8 x 3 each leg. SLS Standing Exercise Name with slider, fwd, lateral and bwd Side bilateral Comments primarily on RLE, facilitate R hip stability. PT-OP-R Modalities Start: 07/12/19 13:55 Freq: Status: Active Protocol: Document 08/02/19 16:50 DCW (Rec: 08/02/19 17:27 DCW [id number]) Electric Stimulation Electric Stimulation Functional Electric Stimulation Body Location Lumbar Spine Duration (Minutes) 15 Patient Position Hooklying Combined With Heat/Cold Hot Pack PT-OP-T Assessment and Plan Start: 07/12/19 13:55 Freq: Status: Active Protocol: Document 09/20/19 16:01 HH (Rec: 09/20/19 17:05 HH [id number]) Physical Therapy Assessment Goals Return to hobby Impairment Pt is currently unable to do gardening work due to LBP Short Term Goal (STG) Pt will be able to start gardening >10 mins without increased LBP. STG Duration 5 weeks Long-Term Goal (LTG) 09/20 in progress: Pt has not attempted any gardening work since sx. Pt will be able to start gardening >20 mins without increased LBP. LTG Duration 10 weeks strength Impairment Pt demonstrates significant R LE weakness Short Term Goal (STG) Pt will be able to improve her RLE strength by 1/2 MMT grade Long-Term Goal (LTG) 09/20 in progress: Pt will be able to improve her overall RLE strength by 1 MMT grade so she can bend over to vegetable picker object >20 lbs from low surface without increased pain. LTG Duration 10 weeks activity tolerance Impairment Pt has increased LBP with sitting/ standing >15 mins Short Term Goal (STG) Pt will have no more than >5/ 10 LBP for sitting/ standing > 15 mins STG Duration 5 weeks Long-Term Goal (LTG) 09/20 in progress: Pt is able to cesia about 30 mins of driving but does have pain 3-5/10. Pain at [address] Pt will have no more than >3/ 10 LBP for sitting/ standing > 30 mins LTG Duration 10 weeks Oswestry LBP Impairment Pt scores 56 (40-59% impairment) on Oswestry LBP questionnaire Short Term Goal (STG) Pt will score <40 (20-39% impairment) on Oswestry LBP questionnaire [place] Goal (LTG) 09/20 cont in progress: pt scores 62 today but she reports she has been reduced her medication by half since IE. Pt will score <20 (1-19% impairment) on Oswestry LBP questionnaire to improve her quality of life LTG Duration 10 weeks Progress Towards Goals Progress Towards Goals Slow Progress due to Activity Tolerance,Slow Progress - Other Assessment Summary Assessment Pt cont to progress slowly and easily irritated. She cont to have difficulty maintaining one position (seated/standing) without increase in back pain . However, Pt has been showing improved single leg strength and balance. Although pt scores her Oswestry LBP = 62 today, pt reports she has been reducing her medication dosage by half. Pt will cont benefit from skilled therapy to improve her core strength, stability , B LE strenghtening and stability training. Physical Therapy Plan Frequency and Duration Frequency of Treatment 2x/wk x2 f/b 1x/wkx4 Duration of Treatment 6 Plan of Care Start Date 09/20/19 Plan of Care End Date 11/04/19 Next Visit Focus/Plan Next Note Type Treatment Note Next Visit Plan review HEP core strengthening focus on SLS, hip abd strengtehning, hip hinge strategies check pt's symptoms Continue current POC, advance as tolerated B hip stability training and strengthening as cesia NM layton on core stability during single leg stance MT for piriformis TrP/ hypertonicity
--- NOTE | 2019-09-22 16:48 | PT.OTN ---
Current Diagnoses Radiculopathy, lumbar region (09/22/19) Encounter for surgical aftercare following surgery on the nervous system (09/22/19) Physical Therapy Treatment Note PT-OP-A Visit Information Start: 07/12/19 13:55 Freq: Status: Active Protocol: Document 09/22/19 15:57 HH (Rec: 09/22/19 16:48 [id number]) Out-Patient Physical Therapy Visit Information Visit Information Visit Type Treatment Note Visit Note tx led by DENISSE Duncan Visit Start Time 15:57 Visit Stop Time 16:40 Total Visit Minutes 43 Visit Number Number of UNDER BASTER Visits 0 PT-OP-B Current Condition Start: 07/12/19 13:55 Freq: Status: Active Protocol: Document 07/12/19 13:00 HH (Rec: 07/12/19 14:30 [email or web address]) Current Condition History of Current Condition Onset Date Jun 02, 2019 Current Complaints s/p R L1-L2 partial laminectomy, LBP, radiating pain to R LE History of Current Condition Pt is a 64 yo female who presents to clinic today s/p s /p R L1-L2 partial laminectomy on 06/02/19 (5 1/2 weeks ago) at with Dr. Alonso. Pt currently follows do deep bending/ twisiting/ heavy lifting until 6 weeks post op. Pt stated her back pain and radiating RLE pain started from this December after she was lifting a ~60lbs object by twisting her back without taking steps. She is currently having ~7/10 pain in a daily basis which aggravated by staying in one position ( standing/sitting) for >15 mins . Changing position usually helps her symptoms but it affects her ability to focus on her current task at work. Pt does know all precautions and able to follow them safely since sx. She is currently in a tansitiont to reduce her pain med from oxycodone (daily ) to tramadol. She also has hx of chronic LBP with L4-L5 fusion in 2014, and she stated that Dr. Alonso suggested she might need another back surgery if this one with PT fails Future Testing and Treatments Planned Dr. Alonso suggested she might need another back surgery if this one with PT fails Treatment Goals Patient/Caregiver Goals 1. 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 To improve her core strength 3. To sit/ring attacher one positiont > 15 mins without increased pain 4. To be able to sail with her boat without pain. Prior Functional Status Baseline Function- ADL's Independent Baseline Function- Mobility Independent Baseline Function- Work/School able to sit/stand >1 hour Baseline Function- Recreation/Hobbies able to lift objects > 50 lbs without pain Current Functional Impairments (Reported) Functional Limitations- ADL's No Bending Lifting Twisting for 6 weeks (06/02), log roll for bed mobility Functional Limitations- Work/School unable to sit / stand > 15 minutes without increased pain Functional Limitations- Recreation/ unable to sail due to LBP/ Hobbies gardening PT-OP-C Subjective Start: 07/12/19 13:55 Freq: Status: Active Protocol: Document 09/22/19 15:57 HH (Rec: 09/22/19 16:48 HH [id number]) OP-PT Subjective Patient Comments Patient Comments My drive from yesterday was not bad and i slept better too . I do feel stiff today. Patient Reported Progress Improving PT-OP-D Balance Start: 07/12/19 13:55 Freq: Status: Active Protocol: Document 07/12/19 13:00 HH (Rec: 07/12/19 14:30 HH [email or web address]) Balance Tests Single Limb Standing Single Limb- Right >30 s Single Limb- Left >30 s Other Other Balance Tests Performed increase R lateral shift and increased R leg pain during SLS on R PT-OP-E Functional Tests Start: 07/12/19 13:55 Freq: Status: Active Protocol: Document 07/12/19 13:00 HH (Rec: 07/12/19 15:46 HH [email or web address]) Functional Tests Five Times Sit to Stand Test Score 21 PT-OP-F Manual Assessment Start: 07/12/19 13:55 Freq: Status: Active Protocol: Document 07/12/19 13:00 HH (Rec: 07/12/19 14:30 HH [email or web address]) Manual Assessments Soft Tissue Assessment Soft Tissue Mobility Assessment significant tenderness to pressure below R SIJ and piriformis PT-OP-H Neuro Start: 07/12/19 13:55 Freq: Status: Active Protocol: Document 07/12/19 13:00 HH (Rec: 07/12/19 14:30 HH [email or web address]) Sensation Evaluation Gross Sensation Gross Sensation Right LE Impaired Dermatome Impairments L5,S1 Comments Summary Comments decreased sensation to LT and pressure at lateral lower leg and R big toe. Deep Tendon Reflex & Clonus Assessment Deep Tendon Reflex Bilateral Achilles Deep Tendon Reflex 1+ Diminished Bilateral Patellar Deep Tendon Reflex 1+ Diminished PT-OP-J Posture/Palpation/Skin Start: 07/12/19 13:55 Freq: Status: Active Protocol: Document 07/12/19 13:00 HH (Rec: 07/12/19 14:30 HH [email or web address]) Posture Evaluation Position Standing Evaluation View Lateral T-Spine Posture Increased Kyphosis L-Spine Posture Increased Lordosis Weight Distribution Weight Shifted Anterior PT-OP-M Strength Start: 07/12/19 13:55 Freq: Status: Active Protocol: Document 07/12/19 13:00 HH (Rec: 07/12/19 14:30 HH [email or web address]) Hip Strength Hip Manual Muscle Testing Left Flexion (L2) 4+ Good+ Extension (S1) 4 Good Abduction 4+ Good+ Adduction 4+ Good+ External Rotation 4+ Good+ Internal Rotation 4+ Good+ Right Flexion (L2) 4- Good- Extension (S1) 3+ Fair+ Abduction 3+ Fair+ Adduction 4 Good External Rotation 3+ Fair+ Internal Rotation 3+ Fair+ Knee Strength Knee Manual Muscle Testing Left Flexion (S2) 4+ Good+ Extension (L3) 4+ Good+ Right Flexion (S2) 3+ Fair+ Extension (L3) 4 Good Comments increased R back pain during resisted R knee flexion Ankle/Foot Strength Ankle and Foot Manual Muscle Testing Left Dorsiflexion (L4) 4+ Good+ Plantarflexion (S1) 4+ Good+ Inversion 4+ Good+ Eversion (S1) 4+ Good+ Right Dorsiflexion (L4) 4- Good- Plantarflexion (S1) 4- Good- Inversion 4 Good Eversion (S1) 4 Good PT-OP-Q Treatments Start: 07/12/19 13:55 Freq: Status: Active Protocol: Document 09/22/19 15:57 HH (Rec: 09/22/19 16:48 HH [id number]) Cardio Equipment Recumbent Stepper (Sci-Fit) Duration (Minutes) 8 Resistance 6 Gym Equipment Shuttle Balance red Reps/Duration 6 mins Comments athletic stance and ankle rock Therapeutic Exercises Sitting Exercises seated pelvic tilt Side bilateral Equipment Used red st helenian ball Reps/Minutes 4 mins Ball reach Sitting Exercise Name ball roll out Side bilateral Equipment Used red st helenian ball Reps/Minutes 4 mins Comments forward and diagonal Standing Exercises slider Standing Exercise Name hip hinge position (opp leg fwd, lateral and bwd slide) Side bilateral Reps/Minutes 5 rounds x 3 step up Standing Exercise Name on stairs Side bilateral Equipment Used 12 inch box Reps/Minutes 8 x 3 each leg. Therapeutic Activity Therapeutic Activity ball brass pickler Reps/Minutes 3-5 lbs ball, 10 mins Comments hip hinge to brass pickler ball from mid thigh level f/b at ankle height PT-OP-R Modalities Start: 07/12/19 13:55 Freq: Status: Active Protocol: Document 08/02/19 16:50 DCW (Rec: 08/02/19 17:27 DCW [id number]) Electric Stimulation Electric Stimulation Functional Electric Stimulation Body Location Lumbar Spine Duration (Minutes) 15 Patient Position Hooklying Combined With Heat/Cold Hot Pack PT-OP-T Assessment and Plan Start: 07/12/19 13:55 Freq: Status: Active Protocol: Document 09/22/19 15:57 HH (Rec: 09/22/19 16:48 HH [id number]) Physical Therapy Assessment Goals Return to hobby Impairment Pt is currently unable to do gardening work due to LBP Short Term Goal (STG) Pt will be able to start gardening >10 mins without increased LBP. STG Duration 5 weeks Investigation Officer Goal (LTG) 09/20 in progress: Pt has not attempted any gardening work since sx. Pt will be able to start gardening >20 mins without increased LBP. LTG Duration 10 weeks strength Impairment Pt demonstrates significant R LE weakness Short Term Goal (STG) Pt will be able to improve her RLE strength by 1/2 MMT grade Jail Goal (LTG) 09/20 in progress: Pt will be able to improve her overall RLE strength by 1 MMT grade so she can bend over to brass pickler object >20 lbs from low surface without increased pain. LTG Duration 10 weeks activity tolerance Impairment Pt has increased LBP with sitting/ standing >15 mins Short Term Goal (STG) Pt will have no more than >5/ 10 LBP for sitting/ standing > 15 mins STG Duration 5 weeks Investigation Officer Goal (LTG) 09/20 in progress: Pt is able to cesia about 30 mins of driving but does have pain 3-5/10. Pain at [address] Pt will have no more than >3/ 10 LBP for sitting/ standing > 30 mins LTG Duration 10 weeks Oswestry LBP Impairment Pt scores 56 (40-59% impairment) on Oswestry LBP questionnaire Short Term Goal (STG) Pt will score <40 (20-39% impairment) on Oswestry LBP questionnaire Jail Goal (LTG) 09/20 cont in progress: pt scores 62 today but she reports she has been reduced her medication by half since IE. Pt will score <20 (1-19% impairment) on Oswestry LBP questionnaire to improve her quality of life LTG Duration 10 weeks Assessment Summary Assessment Tx focused on graded exposure to object picking, single leg strengthening and balancing activities. Pt cesia tx well and reports difficulty on balance board and single leg step up. Physical Therapy Plan Next Visit Focus/Plan Next Note Type Treatment Note Next Visit Plan review HEP graded exposure core strengthening focus on SLS, hip abd strengtehning, hip hinge strategies check pt's symptoms Continue current POC, advance as tolerated B hip stability training and strengthening as cesia NM layton on core stability during single leg stance MT for piriformis TrP/ hypertonicity
--- NOTE | 2019-09-26 15:57 | PT.OTN ---
Current Diagnoses Radiculopathy, lumbar region (09/26/19) Encounter for surgical aftercare following surgery on the nervous system (09/26/19) Physical Therapy Treatment Note PT-OP-A Visit Information Start: 07/12/19 13:55 Freq: Status: Active Protocol: Document 09/26/19 15:15 DCW (Rec: 09/26/19 15:57 DCW [id number]) Out-Patient Physical Therapy Visit Information Visit Information Visit Type Treatment Note Visit Start Time 15:15 Visit Stop Time 16:00 Total Visit Minutes 45 Visit Number 14/54 Number of MEMBER CERTIFICATION MANAGER Visits 0 PT-OP-B Current Condition Start: 07/12/19 13:55 Freq: Status: Active Protocol: Document 07/12/19 13:00 HH (Rec: 07/12/19 14:30 HH [email or web address]) Current Condition History of Current Condition Onset Date Jun 02, 2019 Current Complaints s/p R L1-L2 partial laminectomy, LBP, radiating pain to R LE History of Current Condition Pt is a 64 yo female who presents to clinic today s/p s /p R L1-L2 partial laminectomy on 06/02/19 (5 1/2 weeks ago) at with Dr. Alonso. Pt currently follows do deep bending/ twisiting/ heavy lifting until 6 weeks post op. Pt stated her back pain and radiating RLE pain started from this December after she was lifting a ~60lbs object by twisting her back without taking steps. She is currently having ~7/10 pain in a daily basis which aggravated by staying in one position ( standing/sitting) for >15 mins . Changing position usually helps her symptoms but it affects her ability to focus on her current task at work. Pt does know all precautions and able to follow them safely since sx. She is currently in a tansitiont to reduce her pain med from oxycodone (daily ) to tramadol. She also has hx of chronic LBP with L4-L5 fusion in 2014, and she stated that Dr. Alonso suggested she might need another back surgery if this one with PT fails Future Testing and Treatments Planned Dr. Alonso suggested she might need another back surgery if this one with PT fails Treatment Goals Patient/Caregiver Goals 1. 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 To improve her core strength 3. 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 To be able to sail with her boat without pain. Prior Functional Status Baseline Function- ADL's Independent Baseline Function- Mobility Independent Baseline Function- Work/School able to sit/stand >1 hour Baseline Function- Recreation/Hobbies able to lift objects > 50 lbs without pain Current Functional Impairments (Reported) Functional Limitations- ADL's No Bending Lifting Twisting for 6 weeks (06/02), log roll for bed mobility Functional Limitations- Work/School unable to sit / stand > 15 minutes without increased pain Functional Limitations- Recreation/ unable to sail due to LBP/ Hobbies gardening PT-OP-C Subjective Start: 07/12/19 13:55 Freq: Status: Active Protocol: Document 09/26/19 15:15 DCW (Rec: 09/26/19 15:57 DCW [id number]) OP-PT Subjective Patient Comments Patient Comments Pt reports she was in a lot of pain after her last treatment, had a hard time sleeping night, but figures what we're doing much be doing the trick. PT-OP-D Balance Start: 07/12/19 13:55 Freq: Status: Active Protocol: Document 07/12/19 13:00 HH (Rec: 07/12/19 14:30 HH [email or web address]) Balance Tests Single Limb Standing Single Limb- Right >30 s Single Limb- Left >30 s Other Other Balance Tests Performed increase R lateral shift and increased R leg pain during SLS on R PT-OP-E Functional Tests Start: 07/12/19 13:55 Freq: Status: Active Protocol: Document 07/12/19 13:00 HH (Rec: 07/12/19 15:46 HH [email or web address]) Functional Tests Five Times Sit to Stand Test Score 21 PT-OP-F Manual Assessment Start: 07/12/19 13:55 Freq: Status: Active Protocol: Document 07/12/19 13:00 HH (Rec: 07/12/19 14:30 HH [email or web address]) Manual Assessments Soft Tissue Assessment Soft Tissue Mobility Assessment significant tenderness to pressure below R SIJ and piriformis PT-OP-H Neuro Start: 07/12/19 13:55 Freq: Status: Active Protocol: Document 07/12/19 13:00 HH (Rec: 07/12/19 14:30 HH [email or web address]) Sensation Evaluation Gross Sensation Gross Sensation Right LE Impaired Dermatome Impairments L5,S1 Comments Summary Comments decreased sensation to LT and pressure at lateral lower leg and R big toe. Deep Tendon Reflex & Clonus Assessment Deep Tendon Reflex Bilateral Achilles Deep Tendon Reflex 1+ Diminished Bilateral Patellar Deep Tendon Reflex 1+ Diminished PT-OP-J Posture/Palpation/Skin Start: 07/12/19 13:55 Freq: Status: Active Protocol: Document 07/12/19 13:00 HH (Rec: 07/12/19 14:30 HH [email or web address]) Posture Evaluation Position Standing Evaluation View Lateral T-Spine Posture Increased Kyphosis L-Spine Posture Increased Lordosis Weight Distribution Weight Shifted Anterior PT-OP-M Strength Start: 07/12/19 13:55 Freq: Status: Active Protocol: Document 07/12/19 13:00 HH (Rec: 07/12/19 14:30 HH [email or web address]) Hip Strength Hip Manual Muscle Testing Left Flexion (L2) 4+ Good+ Extension (S1) 4 Good Abduction 4+ Good+ Adduction 4+ Good+ External Rotation 4+ Good+ Internal Rotation 4+ Good+ Right Flexion (L2) 4- Good- Extension (S1) 3+ Fair+ Abduction 3+ Fair+ Adduction 4 Good External Rotation 3+ Fair+ Internal Rotation 3+ Fair+ Knee Strength Knee Manual Muscle Testing Left Flexion (S2) 4+ Good+ Extension (L3) 4+ Good+ Right Flexion (S2) 3+ Fair+ Extension (L3) 4 Good Comments increased R back pain during resisted R knee flexion Ankle/Foot Strength Ankle and Foot Manual Muscle Testing Left Dorsiflexion (L4) 4+ Good+ Plantarflexion (S1) 4+ Good+ Inversion 4+ Good+ Eversion (S1) 4+ Good+ Right Dorsiflexion (L4) 4- Good- Plantarflexion (S1) 4- Good- Inversion 4 Good Eversion (S1) 4 Good PT-OP-Q Treatments Start: 07/12/19 13:55 Freq: Status: Active Protocol: Document 09/26/19 15:15 DCW (Rec: 09/26/19 15:57 DCW [id number]) Cardio Equipment Recumbent Stepper (Sci-Fit) Duration (Minutes) 6 Resistance 8 Gym Equipment Therapeutic Ball Bridging Exercise Details Bridging /c feet on ball Ball Size/Color Red - 55 cm Body Position Supine Therapeutic Exercises Standing Exercises step up Standing Exercise Name on stairs Side bilateral Equipment Used 12 inch box Reps/Minutes 8 x 3 each leg. SLS Standing Exercise Name with slider, fwd, lateral and bwd Side bilateral Comments primarily on RLE, facilitate R hip stability. Manual Therapy Treatment Soft Tissue Mobilization R ITB Mobilization Type Cross-Friction,Rolling, Sustained Pressure Intensity/Depth Superficial Body Position Sidelying R piriformis Mobilization Type Sustained Pressure,Trigger Point Release Intensity/Depth Superficial Body Position Sidelying Comments Pt performing clamshell and reverse clamshell PT-OP-R Modalities Start: 07/12/19 13:55 Freq: Status: Active Protocol: Document 08/02/19 16:50 DCW (Rec: 08/02/19 17:27 DCW [id number]) Electric Stimulation Electric Stimulation Functional Electric Stimulation Body Location Lumbar Spine Duration (Minutes) 15 Patient Position Hooklying Combined With Heat/Cold Hot Pack PT-OP-T Assessment and Plan Start: 07/12/19 13:55 Freq: Status: Active Protocol: Document 09/26/19 15:15 DCW (Rec: 09/26/19 15:57 DCW [id number]) Physical Therapy Assessment Goals Return to hobby Impairment Pt is currently unable to do gardening work due to LBP Short Term Goal (STG) Pt will be able to start gardening >10 mins without increased LBP. STG Duration 5 weeks [employer] Former Goal (LTG) 09/20 in progress: Pt has not attempted any gardening work since sx. Pt will be able to start gardening >20 mins without increased LBP. LTG Duration 10 weeks strength Impairment Pt demonstrates significant R LE weakness Short Term Goal (STG) Pt will be able to improve her RLE strength by 1/2 MMT grade [employer] Former Goal (LTG) 09/20 in progress: Pt will be able to improve her overall RLE strength by 1 MMT grade so she can bend over to vegetable picker object >20 lbs from low surface without increased pain. LTG Duration 10 weeks activity tolerance Impairment Pt has increased LBP with sitting/ standing >15 mins Short Term Goal (STG) Pt will have no more than >5/ 10 LBP for sitting/ standing > 15 mins STG Duration 5 weeks Fpc Goal (LTG) 09/20 in progress: Pt is able to cesia about 30 mins of driving but does have pain 3-5/10. Pain at [address] Pt will have no more than >3/ 10 LBP for sitting/ standing > 30 mins LTG Duration 10 weeks Oswestry LBP Impairment Pt scores 56 (40-59% impairment) on Oswestry LBP questionnaire Short Term Goal (STG) Pt will score <40 (20-39% impairment) on Oswestry LBP questionnaire Fpc Goal (LTG) 09/20 cont in progress: pt scores 62 today but she reports she has been reduced her medication by half since IE. Pt will score <20 (1-19% impairment) on Oswestry LBP questionnaire to improve her quality of life LTG Duration 10 weeks Assessment Summary Assessment Pt continues to progress slowly, showing improvement with tolerance to activity. Physical Therapy Plan Frequency and Duration Frequency of Treatment 2x/wk x2 f/b 1x/wkx4 Duration of Treatment 6 Plan of Care Start Date 09/20/19 Plan of Care End Date 11/04/19 Next Visit Focus/Plan Next Note Type Treatment Note Next Visit Plan review HEP graded exposure core strengthening focus on SLS, hip abd strengthening, hip hinge strategies check pt's symptoms Continue current POC, advance as tolerated B hip stability training and strengthening as cesia NM layton on core stability during single leg stance MT for piriformis TrP/ hypertonicity
--- NOTE | 2019-09-29 16:06 | PT.OTN ---
Current Diagnoses Radiculopathy, lumbar region (09/29/19) Encounter for surgical aftercare following surgery on the nervous system (09/29/19) Physical Therapy Treatment Note PT-OP-A Visit Information Start: 07/12/19 13:55 Freq: Status: Active Protocol: Document 09/29/19 15:16 HH (Rec: 09/29/19 16:06 [id number]) Out-Patient Physical Therapy Visit Information Visit Information Visit Type Treatment Note Visit Start Time 15:16 Visit Stop Time 16:00 Total Visit Minutes 44 Visit Number 15 Number of AGRICULTURAL SCIENCES PROFESSOR Visits 0 PT-OP-B Current Condition Start: 07/12/19 13:55 Freq: Status: Active Protocol: Document 07/12/19 13:00 HH (Rec: 07/12/19 14:30 [email or web address]) Current Condition History of Current Condition Onset Date Jun 02, 2019 Current Complaints s/p R L1-L2 partial laminectomy, LBP, radiating pain to R LE History of Current Condition Pt is a 64 yo female who presents to clinic today s/p s /p R L1-L2 partial laminectomy on 06/02/19 (5 1/2 weeks ago) at with Dr. Alonso. Pt currently follows do deep bending/ twisiting/ heavy lifting until 6 weeks post op. Pt stated her back pain and radiating RLE pain started from this December after she was lifting a ~60lbs object by twisting her back without taking steps. She is currently having ~7/10 pain in a daily basis which aggravated by staying in one position ( standing/sitting) for >15 mins . Changing position usually helps her symptoms but it affects her ability to focus on her current task at work. Pt does know all precautions and able to follow them safely since sx. She is currently in a tansitiont to reduce her pain med from oxycodone (daily ) to tramadol. She also has hx of chronic LBP with L4-L5 fusion in 2014, and she stated that Dr. Alonso suggested she might need another back surgery if this one with PT fails Future Testing and Treatments Planned Dr. Alonso suggested she might need another back surgery if this one with PT fails Treatment Goals Patient/Caregiver Goals 1. 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 To improve her core strength 3. To sit/planning rn one positiont > 15 mins without increased pain 4. To be able to sail with her boat without pain. Prior Functional Status Baseline Function- ADL's Independent Baseline Function- Mobility Independent Baseline Function- Work/School able to sit/stand >1 hour Baseline Function- Recreation/Hobbies able to lift objects > 50 lbs without pain Current Functional Impairments (Reported) Functional Limitations- ADL's No Bending Lifting Twisting for 6 weeks (06/02), log roll for bed mobility Functional Limitations- Work/School unable to sit / stand > 15 minutes without increased pain Functional Limitations- Recreation/ unable to sail due to LBP/ Hobbies gardening PT-OP-C Subjective Start: 07/12/19 13:55 Freq: Status: Active Protocol: Document 09/29/19 15:16 HH (Rec: 09/29/19 16:06 HH [id number]) OP-PT Subjective Patient Comments Patient Comments Kiya pretty good today. I did get sore last night. I also notice my tingling and numbness sensation down to my R leg has gotten better recently. PT-OP-D Balance Start: 07/12/19 13:55 Freq: Status: Active Protocol: Document 07/12/19 13:00 HH (Rec: 07/12/19 14:30 [email or web address]) Balance Tests Single Limb Standing Single Limb- Right >30 s Single Limb- Left >30 s Other Other Balance Tests Performed increase R lateral shift and increased R leg pain during SLS on R PT-OP-E Functional Tests Start: 07/12/19 13:55 Freq: Status: Active Protocol: Document 07/12/19 13:00 HH (Rec: 07/12/19 15:46 HH [email or web address]) Functional Tests Five Times Sit to Stand Test Score 21 PT-OP-F Manual Assessment Start: 07/12/19 13:55 Freq: Status: Active Protocol: Document 07/12/19 13:00 HH (Rec: 07/12/19 14:30 [email or web address]) Manual Assessments Soft Tissue Assessment Soft Tissue Mobility Assessment significant tenderness to pressure below R SIJ and piriformis PT-OP-H Neuro Start: 07/12/19 13:55 Freq: Status: Active Protocol: Document 07/12/19 13:00 HH (Rec: 07/12/19 14:30 [email or web address]) Sensation Evaluation Gross Sensation Gross Sensation Right LE Impaired Dermatome Impairments L5,S1 Comments Summary Comments decreased sensation to LT and pressure at lateral lower leg and R big toe. Deep Tendon Reflex & Clonus Assessment Deep Tendon Reflex Bilateral Achilles Deep Tendon Reflex 1+ Diminished Bilateral Patellar Deep Tendon Reflex 1+ Diminished PT-OP-J Posture/Palpation/Skin Start: 07/12/19 13:55 Freq: Status: Active Protocol: Document 07/12/19 13:00 (Rec: 07/12/19 14:30 [email or web address]) Posture Evaluation Position Standing Evaluation View Lateral T-Spine Posture Increased Kyphosis L-Spine Posture Increased Lordosis Weight Distribution Weight Shifted Anterior PT-OP-M Strength Start: 07/12/19 13:55 Freq: Status: Active Protocol: Document 07/12/19 13:00 (Rec: 07/12/19 14:30 [email or web address]) Hip Strength Hip Manual Muscle Testing Left Flexion (L2) 4+ Good+ Extension (S1) 4 Good Abduction 4+ Good+ Adduction 4+ Good+ External Rotation 4+ Good+ Internal Rotation 4+ Good+ Right Flexion (L2) 4- Good- Extension (S1) 3+ Fair+ Abduction 3+ Fair+ Adduction 4 Good External Rotation 3+ Fair+ Internal Rotation 3+ Fair+ Knee Strength Knee Manual Muscle Testing Left Flexion (S2) 4+ Good+ Extension (L3) 4+ Good+ Right Flexion (S2) 3+ Fair+ Extension (L3) 4 Good Comments increased R back pain during resisted R knee flexion Ankle/Foot Strength Ankle and Foot Manual Muscle Testing Left Dorsiflexion (L4) 4+ Good+ Plantarflexion (S1) 4+ Good+ Inversion 4+ Good+ Eversion (S1) 4+ Good+ Right Dorsiflexion (L4) 4- Good- Plantarflexion (S1) 4- Good- Inversion 4 Good Eversion (S1) 4 Good PT-OP-Q Treatments Start: 07/12/19 13:55 Freq: Status: Active Protocol: Document 09/29/19 15:16 (Rec: 09/29/19 16:06 [id number]) Cardio Equipment Elliptical Duration (Minutes) 4 Resistance 5 Therapeutic Exercises Supine Exercises SLR Side bilateral Reps/Minutes 8 each side x 2 Comments PPT first PPT /c Marching Supine Exercise Name hands behind pelvis for movement block Side bilateral Reps/Minutes alt 8 x 2 Comments cues on PPT Prone Exercises child pose + prone extension Prone Exercise Name hands on chair Side bilateral Reps/Minutes 8 x2 Comments cues on minimal trunk ext but with glute contraction Standing Exercises front squat Equipment Used 3lbs ball Comments cues on neutral spine deadlift Standing Exercise Name 3lbs ball from midshin to hip Reps/Minutes 8 x2 Comments cues on hip hinge hip hinge Standing Exercise Name with neutral spine Side bilateral Reps/Minutes 8 x2 Comments buttock against wall. J curl Standing Exercise Name segmental flexion and ext Side bilateral Reps/Minutes 5 sec up and down. PT-OP-R Modalities Start: 07/12/19 13:55 Freq: Status: Active Protocol: Document 08/02/19 16:50 DCW (Rec: 08/02/19 17:27 DCW [id number]) Electric Stimulation Electric Stimulation Functional Electric Stimulation Body Location Lumbar Spine Duration (Minutes) 15 Patient Position Hooklying Combined With Heat/Cold Hot Pack PT-OP-T Assessment and Plan Start: 07/12/19 13:55 Freq: Status: Active Protocol: Document 09/29/19 15:16 HH (Rec: 09/29/19 16:06 HH [id number]) Physical Therapy Assessment Goals Return to hobby Impairment Pt is currently unable to do gardening work due to LBP Short Term Goal (STG) Pt will be able to start gardening >10 mins without increased LBP. STG Duration 5 weeks Snf Goal (LTG) 09/20 in progress: Pt has not attempted any gardening work since sx. Pt will be able to start gardening >20 mins without increased LBP. LTG Duration 10 weeks strength Impairment Pt demonstrates significant R LE weakness Short Term Goal (STG) Pt will be able to improve her RLE strength by 1/2 MMT grade Snf Goal (LTG) 09/20 in progress: Pt will be able to improve her overall RLE strength by 1 MMT grade so she can bend over to hop picker object >20 lbs from low surface without increased pain. LTG Duration 10 weeks activity tolerance Impairment Pt has increased LBP with sitting/ standing >15 mins Short Term Goal (STG) Pt will have no more than >5/ 10 LBP for sitting/ standing > 15 mins STG Duration 5 weeks Snf Goal (LTG) 09/20 in progress: Pt is able to cesia about 30 mins of driving but does have pain 3-5/10. Pain at [address] Pt will have no more than >3/ 10 LBP for sitting/ standing > 30 mins LTG Duration 10 weeks Oswestry LBP Impairment Pt scores 56 (40-59% impairment) on Oswestry LBP questionnaire Short Term Goal (STG) Pt will score <40 (20-39% impairment) on Oswestry LBP questionnaire Snf Goal (LTG) 09/20 cont in progress: pt scores 62 today but she reports she has been reduced her medication by half since IE. Pt will score <20 (1-19% impairment) on Oswestry LBP questionnaire to improve her quality of life LTG Duration 10 weeks Assessment Summary Assessment Pt showed improved tolerance for trunk stability ex and graded exposure but cont to be easily irritated. Educated pt to start mild trunk extension ex with gluteal engagement. Physical Therapy Plan Next Visit Focus/Plan Next Note Type Treatment Note Next Visit Plan review HEP graded exposure core strengthening focus on SLS, hip abd strengtehning, hip hinge strategies check pt's symptoms Continue current POC, advance as tolerated B hip stability training and strengthening as cesia NM layton on core stability during single leg stance MT for piriformis TrP/ hypertonicity
--- NOTE | 2019-10-25 12:20 | PT.OTN ---
Current Diagnoses Radiculopathy, lumbar region (10/25/19) Encounter for surgical aftercare following surgery on the nervous system (10/25/19) Physical Therapy Treatment Note PT-OP-A Visit Information Start: 07/12/19 13:55 Freq: Status: Active Protocol: Document 10/25/19 09:03 (Rec: 10/25/19 12:20 HH [email or web address]) Out-Patient Physical Therapy Visit Information Visit Information Visit Type Treatment Note Visit Note Pt's last visit 09/29/2019 Visit Start Time 09:03 Visit Stop Time 09:45 Total Visit Minutes 42 Visit Number [id number] Number of POST GRADUATE INTERNSHIP Visits 0 PT-OP-B Current Condition Start: 07/12/19 13:55 Freq: Status: Active Protocol: Document 07/12/19 13:00 HH (Rec: 07/12/19 14:30 HH [email or web address]) Current Condition History of Current Condition Onset Date Jun 02, 2019 Current Complaints s/p R L1-L2 partial laminectomy, LBP, radiating pain to R LE History of Current Condition Pt is a 64 yo female who presents to clinic today s/p s /p R L1-L2 partial laminectomy on 06/02/19 (5 1/2 weeks ago) at with Dr. Alonso. Pt currently follows do deep bending/ twisiting/ heavy lifting until 6 weeks post op. Pt stated her back pain and radiating RLE pain started from this December after she was lifting a ~60lbs object by twisting her back without taking steps. She is currently having ~7/10 pain in a daily basis which aggravated by staying in one position ( standing/sitting) for >15 mins . Changing position usually helps her symptoms but it affects her ability to focus on her current task at work. Pt does know all precautions and able to follow them safely since sx. She is currently in a tansitiont to reduce her pain med from oxycodone (daily ) to tramadol. She also has hx of chronic LBP with L4-L5 fusion in 2014, and she stated that Dr. Alonso suggested she might need another back surgery if this one with PT fails Future Testing and Treatments Planned Dr. Alonso suggested she might need another back surgery if this one with PT fails Treatment Goals Patient/Caregiver Goals 1. 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 To improve her core strength 3. 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 To be able to sail with her boat without pain. Prior Functional Status Baseline Function- ADL's Independent Baseline Function- Mobility Independent Baseline Function- Work/School able to sit/stand >1 hour Baseline Function- Recreation/Hobbies able to lift objects > 50 lbs without pain Current Functional Impairments (Reported) Functional Limitations- ADL's No Bending Lifting Twisting for 6 weeks (06/02), log roll for bed mobility Functional Limitations- Work/School unable to sit / stand > 15 minutes without increased pain Functional Limitations- Recreation/ unable to sail due to LBP/ Hobbies gardening PT-OP-C Subjective Start: 07/12/19 13:55 Freq: Status: Active Protocol: Document 10/25/19 09:03 HH (Rec: 10/25/19 12:20 [email or web address]) OP-PT Subjective Patient Comments Patient Comments My leg pain has been pretty bad, but tingling and numbness is calming down and less now. I still have difficulty sit/ stand >30 mins or driving more than 30 mins. Patient Reported Progress Same PT-OP-D Balance Start: 07/12/19 13:55 Freq: Status: Active Protocol: Document 07/12/19 13:00 HH (Rec: 07/12/19 14:30 [email or web address]) Balance Tests Single Limb Standing Single Limb- Right >30 s Single Limb- Left >30 s Other Other Balance Tests Performed increase R lateral shift and increased R leg pain during SLS on R PT-OP-E Functional Tests Start: 07/12/19 13:55 Freq: Status: Active Protocol: Document 07/12/19 13:00 HH (Rec: 07/12/19 15:46 [email or web address]) Functional Tests Five Times Sit to Stand Test Score 21 PT-OP-F Manual Assessment Start: 07/12/19 13:55 Freq: Status: Active Protocol: Document 07/12/19 13:00 HH (Rec: 07/12/19 14:30 [email or web address]) Manual Assessments Soft Tissue Assessment Soft Tissue Mobility Assessment significant tenderness to pressure below R SIJ and piriformis PT-OP-H Neuro Start: 07/12/19 13:55 Freq: Status: Active Protocol: Document 07/12/19 13:00 HH (Rec: 07/12/19 14:30 [email or web address]) Sensation Evaluation Gross Sensation Gross Sensation Right LE Impaired Dermatome Impairments L5,S1 Comments Summary Comments decreased sensation to LT and pressure at lateral lower leg and R big toe. Deep Tendon Reflex & Clonus Assessment Deep Tendon Reflex Bilateral Achilles Deep Tendon Reflex 1+ Diminished Bilateral Patellar Deep Tendon Reflex 1+ Diminished PT-OP-J Posture/Palpation/Skin Start: 07/12/19 13:55 Freq: Status: Active Protocol: Document 07/12/19 13:00 (Rec: 07/12/19 14:30 [email or web address]) Posture Evaluation Position Standing Evaluation View Lateral T-Spine Posture Increased Kyphosis L-Spine Posture Increased Lordosis Weight Distribution Weight Shifted Anterior PT-OP-M Strength Start: 07/12/19 13:55 Freq: Status: Active Protocol: Document 07/12/19 13:00 (Rec: 07/12/19 14:30 [email or web address]) Hip Strength Hip Manual Muscle Testing Left Flexion (L2) 4+ Good+ Extension (S1) 4 Good Abduction 4+ Good+ Adduction 4+ Good+ External Rotation 4+ Good+ Internal Rotation 4+ Good+ Right Flexion (L2) 4- Good- Extension (S1) 3+ Fair+ Abduction 3+ Fair+ Adduction 4 Good External Rotation 3+ Fair+ Internal Rotation 3+ Fair+ Knee Strength Knee Manual Muscle Testing Left Flexion (S2) 4+ Good+ Extension (L3) 4+ Good+ Right Flexion (S2) 3+ Fair+ Extension (L3) 4 Good Comments increased R back pain during resisted R knee flexion Ankle/Foot Strength Ankle and Foot Manual Muscle Testing Left Dorsiflexion (L4) 4+ Good+ Plantarflexion (S1) 4+ Good+ Inversion 4+ Good+ Eversion (S1) 4+ Good+ Right Dorsiflexion (L4) 4- Good- Plantarflexion (S1) 4- Good- Inversion 4 Good Eversion (S1) 4 Good PT-OP-Q Treatments Start: 07/12/19 13:55 Freq: Status: Active Protocol: Document 10/25/19 09:03 (Rec: 10/25/19 12:20 [email or web address]) Cardio Equipment Elliptical Duration (Minutes) 4 Resistance 5 Therapeutic Exercises Supine Exercises deadbug Supine Exercise Name unilateral but opposite ball squeeze Side bilateral Reps/Minutes 5 sec hold Prone Exercises birddog Prone Exercise Name leg extension only, alternate Side bilateral Comments cues on neutral spine isometrics Prone Exercise Name hip IR and ER Side right Reps/Minutes 4 mins Comments MET for hip IR and ER R hip IR Prone Exercise Name active ROM Side right Reps/Minutes 5 mins Comments pain noted at end range hip IR cat camel Prone Exercise Name lumbar pelvic tilt only Reps/Minutes 4 mins Manual Therapy Treatment Soft Tissue Mobilization R piriformis Mobilization Type Sustained Pressure,Trigger Point Release Intensity/Depth Superficial Body Position Sidelying Comments Pt performing clamshell and reverse clamshell Joint Mobilizations R hip distraction Grade III Body Position Supine Reps/Duration 10 sec hold x 5 PT-OP-R Modalities Start: 07/12/19 13:55 Freq: Status: Active Protocol: Document 08/02/19 16:50 DCW (Rec: 08/02/19 17:27 DCW [id number]) Electric Stimulation Electric Stimulation Functional Electric Stimulation Body Location Lumbar Spine Duration (Minutes) 15 Patient Position Hooklying Combined With Heat/Cold Hot Pack PT-OP-T Assessment and Plan Start: 07/12/19 13:55 Freq: Status: Active Protocol: Document 10/25/19 09:03 HH (Rec: 10/25/19 12:20 HH [email or web address]) Physical Therapy Assessment Goals Return to hobby Impairment Pt is currently unable to do gardening work due to LBP Short Term Goal (STG) Pt will be able to start gardening >10 mins without increased LBP. STG Duration 5 weeks Fpc Goal (LTG) 10/25 in progress: Pt has not attempted any gardening work since sx. Pt will be able to start gardening >20 mins without increased LBP. LTG Duration 10 weeks strength Impairment Pt demonstrates significant R LE weakness Short Term Goal (STG) Pt will be able to improve her RLE strength by 1/2 MMT grade Programmer Business Goal (LTG) 10/25 in progress: hip IR= 3/5 and ER = 3+/5 Pt will be able to improve her overall RLE strength by 1 MMT grade so she can bend over to brick picker object >20 lbs from low surface without increased pain. LTG Duration 10 weeks activity tolerance Impairment Pt has increased LBP with sitting/ standing >15 mins Short Term Goal (STG) Pt will have no more than >5/ 10 LBP for sitting/ standing > 15 mins STG Duration 5 weeks Fpc Goal (LTG) 10/25 in progress: Pt is able to cesia about 30 mins of driving but does have pain 3-5/10. Pain at [address] Pt will have no more than >3/ 10 LBP for sitting/ standing > 30 mins LTG Duration 10 weeks Oswestry LBP Impairment Pt scores 56 (40-59% impairment) on Oswestry LBP questionnaire Short Term Goal (STG) Pt will score <40 (20-39% impairment) on Oswestry LBP questionnaire Fpc Goal (LTG) 09/20 cont in progress: pt scores 62 today but she reports she has been reduced her medication by half since IE. Pt will score <20 (1-19% impairment) on Oswestry LBP questionnaire to improve her quality of life LTG Duration 10 weeks Assessment Summary Assessment Pt has been plateaued for her progress except reduced tingling/ numbness sensation. Pt cont to be very pain sensitive with lumbar/ hip movement. Noticeable increased shooting pain at R leg with R hip IR in prone/ seated position. Added hip IR for HEP . tx also focused on trunk stability Physical Therapy Plan Next Visit Focus/Plan Next Note Type Treatment Note Next Visit Plan review HEP/ assess tolerance for last sessoin graded exposure core strengthening focus on SLS, hip abd strengtehning, hip hinge strategies check pt's symptoms Continue current POC, advance as tolerated B hip stability training and strengthening as cesia NM layton on core stability during single leg stance
--- NOTE | 2019-11-02 18:32 | PT.OTN ---
Current Diagnoses Radiculopathy, lumbar region (11/02/19) Encounter for surgical aftercare following surgery on the nervous system (11/02/19) Physical Therapy Treatment Note PT-OP-A Visit Information Start: 07/12/19 13:55 Freq: Status: Active Protocol: Document 11/02/19 16:48 HH (Rec: 11/02/19 18:31 HH [id number]) Out-Patient Physical Therapy Visit Information Visit Information Visit Type Treatment Note Visit Start Time 16:48 Visit Stop Time 15:30 Total Visit Minutes 42 Visit Number 17/54 Number of RUBBER BLOCK LAYER Visits 0 PT-OP-B Current Condition Start: 07/12/19 13:55 Freq: Status: Active Protocol: Document 07/12/19 13:00 HH (Rec: 07/12/19 14:30 HH [email or web address]) Current Condition History of Current Condition Onset Date Jun 02, 2019 Current Complaints s/p R L1-L2 partial laminectomy, LBP, radiating pain to R LE History of Current Condition Pt is a 64 yo female who presents to clinic today s/p s /p R L1-L2 partial laminectomy on 06/02/19 (5 1/2 weeks ago) at with Dr. Alonso. Pt currently follows do deep bending/ twisiting/ heavy lifting until 6 weeks post op. Pt stated her back pain and radiating RLE pain started from this December after she was lifting a ~60lbs object by twisting her back without taking steps. She is currently having ~7/10 pain in a daily basis which aggravated by staying in one position ( standing/sitting) for >15 mins . Changing position usually helps her symptoms but it affects her ability to focus on her current task at work. Pt does know all precautions and able to follow them safely since sx. She is currently in a tansitiont to reduce her pain med from oxycodone (daily ) to tramadol. She also has hx of chronic LBP with L4-L5 fusion in 2014, and she stated that Dr. Alonso suggested she might need another back surgery if this one with PT fails Future Testing and Treatments Planned Dr. Alonso suggested she might need another back surgery if this one with PT fails Treatment Goals Patient/Caregiver Goals 1. 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 To be able to sail with her boat without pain. Prior Functional Status Baseline Function- ADL's Independent Baseline Function- Mobility Independent Baseline Function- Work/School able to sit/stand >1 hour Baseline Function- Recreation/Hobbies able to lift objects > 50 lbs without pain Current Functional Impairments (Reported) Functional Limitations- ADL's No Bending Lifting Twisting for 6 weeks (06/02), log roll for bed mobility Functional Limitations- Work/School unable to sit / stand > 15 minutes without increased pain Functional Limitations- Recreation/ unable to sail due to LBP/ Hobbies gardening PT-OP-C Subjective Start: 07/12/19 13:55 Freq: Status: Active Protocol: Document 11/02/19 16:48 HH (Rec: 11/02/19 18:31 HH [id number]) OP-PT Subjective Patient Comments Patient Comments My leg pain was bad after last session with hip rotational ex and stretches. I had to take one and half day off after. Im feeling better today with 3-4/ 10 pain. Patient Reported Progress Worse PT-OP-D Balance Start: 07/12/19 13:55 Freq: Status: Active Protocol: Document 07/12/19 13:00 HH (Rec: 07/12/19 14:30 HH [email or web address]) Balance Tests Single Limb Standing Single Limb- Right >30 s Single Limb- Left >30 s Other Other Balance Tests Performed increase R lateral shift and increased R leg pain during SLS on R PT-OP-E Functional Tests Start: 07/12/19 13:55 Freq: Status: Active Protocol: Document 07/12/19 13:00 HH (Rec: 07/12/19 15:46 HH [email or web address]) Functional Tests Five Times Sit to Stand Test Score 21 PT-OP-F Manual Assessment Start: 07/12/19 13:55 Freq: Status: Active Protocol: Document 07/12/19 13:00 HH (Rec: 07/12/19 14:30 HH [email or web address]) Manual Assessments Soft Tissue Assessment Soft Tissue Mobility Assessment significant tenderness to pressure below R SIJ and piriformis PT-OP-H Neuro Start: 07/12/19 13:55 Freq: Status: Active Protocol: Document 07/12/19 13:00 HH (Rec: 07/12/19 14:30 HH [email or web address]) Sensation Evaluation Gross Sensation Gross Sensation Right LE Impaired Dermatome Impairments L5,S1 Comments Summary Comments decreased sensation to LT and pressure at lateral lower leg and R big toe. Deep Tendon Reflex & Clonus Assessment Deep Tendon Reflex Bilateral Achilles Deep Tendon Reflex 1+ Diminished Bilateral Patellar Deep Tendon Reflex 1+ Diminished PT-OP-J Posture/Palpation/Skin Start: 07/12/19 13:55 Freq: Status: Active Protocol: Document 07/12/19 13:00 HH (Rec: 07/12/19 14:30 HH [email or web address]) Posture Evaluation Position Standing Evaluation View Lateral T-Spine Posture Increased Kyphosis L-Spine Posture Increased Lordosis Weight Distribution Weight Shifted Anterior PT-OP-M Strength Start: 07/12/19 13:55 Freq: Status: Active Protocol: Document 07/12/19 13:00 HH (Rec: 07/12/19 14:30 [email or web address]) Hip Strength Hip Manual Muscle Testing Left Flexion (L2) 4+ Good+ Extension (S1) 4 Good Abduction 4+ Good+ Adduction 4+ Good+ External Rotation 4+ Good+ Internal Rotation 4+ Good+ Right Flexion (L2) 4- Good- Extension (S1) 3+ Fair+ Abduction 3+ Fair+ Adduction 4 Good External Rotation 3+ Fair+ Internal Rotation 3+ Fair+ Knee Strength Knee Manual Muscle Testing Left Flexion (S2) 4+ Good+ Extension (L3) 4+ Good+ Right Flexion (S2) 3+ Fair+ Extension (L3) 4 Good Comments increased R back pain during resisted R knee flexion Ankle/Foot Strength Ankle and Foot Manual Muscle Testing Left Dorsiflexion (L4) 4+ Good+ Plantarflexion (S1) 4+ Good+ Inversion 4+ Good+ Eversion (S1) 4+ Good+ Right Dorsiflexion (L4) 4- Good- Plantarflexion (S1) 4- Good- Inversion 4 Good Eversion (S1) 4 Good PT-OP-Q Treatments Start: 07/12/19 13:55 Freq: Status: Active Protocol: Document 11/02/19 16:48 HH (Rec: 11/02/19 18:31 HH [id number]) Cardio Equipment Elliptical Duration (Minutes) 6 Resistance 5 Therapeutic Exercises Supine Exercises isometrics Supine Exercise Name ADD and ABD against PT resistance Side bilateral Reps/Minutes 10 sec holdx 5 deadbug Supine Exercise Name unilateral but opposite ball squeeze Side bilateral Reps/Minutes 5 sec hold LTR Supine Exercise Name with ball squeeze Side bilateral Prone Exercises birddog Prone Exercise Name leg extension only, alternate Side bilateral Comments cues on neutral spine cat camel Prone Exercise Name lumbar pelvic tilt only Reps/Minutes 4 mins Comments cues on flat T/s Manual Therapy Treatment Soft Tissue Mobilization R glutes Mobilization Type Sustained Pressure,Trigger Point Release Intensity/Depth Superficial Body Position Prone Comments Proximal tendon R paraspinals Mobilization Type Strumming,Sustained Pressure, Trigger Point Release Intensity/Depth Moderate Body Position Prone Joint Mobilizations R hip distraction Grade III Body Position Supine Reps/Duration 10 sec hold x 5 PT-OP-R Modalities Start: 07/12/19 13:55 Freq: Status: Active Protocol: Document 08/02/19 16:50 DCW (Rec: 08/02/19 17:27 DCW [id number]) Electric Stimulation Electric Stimulation Functional Electric Stimulation Body Location Lumbar Spine Duration (Minutes) 15 Patient Position Hooklying Combined With Heat/Cold Hot Pack PT-OP-T Assessment and Plan Start: 07/12/19 13:55 Freq: Status: Active Protocol: Document 11/02/19 16:48 HH (Rec: 11/02/19 18:31 HH [id number]) Physical Therapy Assessment Goals Return to hobby Impairment Pt is currently unable to do gardening work due to LBP Short Term Goal (STG) Pt will be able to start gardening >10 mins without increased LBP. STG Duration 5 weeks [place] Goal (LTG) 10/25 in progress: Pt has not attempted any gardening work since sx. Pt will be able to start gardening >20 mins without increased LBP. LTG Duration 10 weeks strength Impairment Pt demonstrates significant R LE weakness Short Term Goal (STG) Pt will be able to improve her RLE strength by 1/2 MMT grade [place] Goal (LTG) 10/25 in progress: hip IR= 3/5 and ER = 3+/5 Pt will be able to improve her overall RLE strength by 1 MMT grade so she can bend over to molded goods spot picker object >20 lbs from low surface without increased pain. LTG Duration 10 weeks activity tolerance Impairment Pt has increased LBP with sitting/ standing >15 mins Short Term Goal (STG) Pt will have no more than >5/ 10 LBP for sitting/ standing > 15 mins STG Duration 5 weeks [facility] Goal (LTG) 10/25 in progress: Pt is able to cesia about 30 mins of driving but does have pain 3-5/10. Pain at [address] Pt will have no more than >3/ 10 LBP for sitting/ standing > 30 mins LTG Duration 10 weeks Oswestry LBP Impairment Pt scores 56 (40-59% impairment) on Oswestry LBP questionnaire Short Term Goal (STG) Pt will score <40 (20-39% impairment) on Oswestry LBP questionnaire [place] Goal (LTG) 09/20 cont in progress: pt scores 62 today but she reports she has been reduced her medication by half since IE. Pt will score <20 (1-19% impairment) on Oswestry LBP questionnaire to improve her quality of life LTG Duration 10 weeks Assessment Summary Assessment Pt has increased R hip pain since last visit after hip ER/ IR ROM. Pt denies discomfort with isometric hip ex and flexion based ex for lumbar region. Will change POC to focuse segmental lumbar flexion mobility, thoracic extension mobility and progressive strengthening / stability training for B hips and lumbar musculature. Will start with supine and prone position to eliminate gravity. Physical Therapy Plan Frequency and Duration Frequency of Treatment 2 weeks Duration of Treatment 8 weeks Plan of Care Start Date 11/02/19 Plan of Care End Date 01/01/20 Next Visit Focus/Plan Next Note Type Treatment Note Next Visit Plan review HEP/ assess tolerance for last sessoin graded exposure core strengthening focus on SLS, hip abd strengtehning, hip hinge strategies check pt's symptoms Continue current POC, advance as tolerated B hip stability training and strengthening as cesia NM layton on core stability during single leg stance
--- NOTE | 2019-11-02 18:32 | PT.OPPOC ---
Physical, Occupational & Speech Therapy At [facility] Current Diagnoses Radiculopathy, lumbar region (11/02/19) Encounter for surgical aftercare following surgery on the nervous system (11/02/19) Visit Care Team Role Provider Type Erinn Gresham PA-C Primary Care Provider [employer] Operations Manager Specialty: Medical Address: [address] [place] [address], [address], [place], [address] Email: [email or web address] Lin Armijo PA-C Attending Provider Non-Staff Specialty: Nursing Address: [facility] [place] [address], [address], [place], [address] Email: Plan Of Care PT-OP-T Assessment and Plan Start: 07/12/19 13:55 Freq: Status: Active Protocol: Document 11/02/19 16:48 HH (Rec: 11/02/19 18:31 HH [id number]) Physical Therapy Assessment Goals Return to hobby Impairment Pt is currently unable to do gardening work due to LBP Short Term Goal (STG) Pt will be able to start gardening >10 mins without increased LBP. 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 Pt will be able to start gardening >20 mins without increased LBP. LTG Duration 10 weeks strength Impairment Pt demonstrates significant R LE weakness Short Term Goal (STG) Pt will be able to improve her RLE strength by 1/2 MMT grade Commercial Driver'S License Driver Goal (LTG) 10/25 in progress: hip IR= 3/5 and ER = 3+/5 Pt will be able to improve her overall RLE strength by 1 MMT grade so she can bend over to case picker object >20 lbs from low surface without increased pain. 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 Pain at [address] 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 Pt will score <20 (1-19% impairment) on Oswestry LBP questionnaire to improve her quality of life LTG Duration 10 weeks Assessment Summary Assessment Pt has increased R hip pain since last visit after hip ER/ IR ROM. Pt denies discomfort with isometric hip ex and flexion based ex for lumbar region. Will change POC to focuse segmental lumbar flexion mobility, thoracic extension mobility and progressive strengthening / stability training for B hips and lumbar musculature. Will start with supine and prone position to eliminate gravity. Physical Therapy Plan Frequency and Duration Frequency of Treatment 2 weeks Duration of Treatment 8 weeks Plan of Care Start Date 11/02/19 Plan of Care End Date 01/01/20 Next Visit Focus/Plan Next Note Type Treatment Note Next Visit Plan review HEP/ assess tolerance for last sessoin graded exposure core strengthening focus on SLS, hip abd strengtehning, hip hinge strategies check pt's symptoms Continue current POC, advance as tolerated B hip stability training and strengthening as cesia NM layton on core stability during single leg stance Plan of Care Dates Plan of Care Start Date 11/02/19 Plan of Care End Date 01/01/20 Electronically Signed by: Benjy De Jesus, PT 11/02/19 [id number] Please Sign and Return: I have reviewed this Plan of Care and certify that the skilled therapy services above are required to meet the patient?s needs. Physician Signature Date Printed Name and Credentials Clinical Instructor Signature Printed Name and Credentials
--- NOTE | 2019-11-08 18:04 | PT.OTN ---
Current Diagnoses Radiculopathy, lumbar region (11/08/19) Encounter for surgical aftercare following surgery on the nervous system (11/08/19) Physical Therapy Treatment Note PT-OP-A Visit Information Start: 07/12/19 13:55 Freq: Status: Active Protocol: Document 11/08/19 16:46 HH (Rec: 11/08/19 18:04 HH [email or web address]) Out-Patient Physical Therapy Visit Information Visit Information Visit Type Treatment Note Visit Start Time 16:46 Visit Stop Time 15:30 Total Visit Minutes 44 Visit Number [id number] Number of EMISSIONS INSPECTOR Visits 0 PT-OP-B Current Condition Start: 07/12/19 13:55 Freq: Status: Active Protocol: Document 07/12/19 13:00 HH (Rec: 07/12/19 14:30 HH [email or web address]) Current Condition History of Current Condition Onset Date Jun 02, 2019 Current Complaints s/p R L1-L2 partial laminectomy, LBP, radiating pain to R LE History of Current Condition Pt is a 64 yo female who presents to clinic today s/p s /p R L1-L2 partial laminectomy on 06/02/19 (5 1/2 weeks ago) at with Dr. Alonso. Pt currently follows do deep bending/ twisiting/ heavy lifting until 6 weeks post op. Pt stated her back pain and radiating RLE pain started from this December after she was lifting a ~60lbs object by twisting her back without taking steps. She is currently having ~7/10 pain in a daily basis which aggravated by staying in one position ( standing/sitting) for >15 mins . Changing position usually helps her symptoms but it affects her ability to focus on her current task at work. Pt does know all precautions and able to follow them safely since sx. She is currently in a tansitiont to reduce her pain med from oxycodone (daily ) to tramadol. She also has hx of chronic LBP with L4-L5 fusion in 2014, and she stated that Dr. Alonso suggested she might need another back surgery if this one with PT fails Future Testing and Treatments Planned Dr. Alonso suggested she might need another back surgery if this one with PT fails Treatment Goals Patient/Caregiver Goals 1. 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 To be able to sail with her boat without pain. Prior Functional Status Baseline Function- ADL's Independent Baseline Function- Mobility Independent Baseline Function- Work/School able to sit/stand >1 hour Baseline Function- Recreation/Hobbies able to lift objects > 50 lbs without pain Current Functional Impairments (Reported) Functional Limitations- ADL's No Bending Lifting Twisting for 6 weeks (06/02), log roll for bed mobility Functional Limitations- Work/School unable to sit / stand > 15 minutes without increased pain Functional Limitations- Recreation/ unable to sail due to LBP/ Hobbies gardening PT-OP-C Subjective Start: 07/12/19 13:55 Freq: Status: Active Protocol: Document 11/08/19 16:46 HH (Rec: 11/08/19 18:04 HH [email or web address]) OP-PT Subjective Patient Comments Patient Comments My leg and back pain are feeling good after last session. I didnt have any tingling/ numbness sensation for 5 days which is very good. Patient Reported Progress Improving PT-OP-D Balance Start: 07/12/19 13:55 Freq: Status: Active Protocol: Document 07/12/19 13:00 HH (Rec: 07/12/19 14:30 HH [email or web address]) Balance Tests Single Limb Standing Single Limb- Right >30 s Single Limb- Left >30 s Other Other Balance Tests Performed increase R lateral shift and increased R leg pain during SLS on R PT-OP-E Functional Tests Start: 07/12/19 13:55 Freq: Status: Active Protocol: Document 07/12/19 13:00 HH (Rec: 07/12/19 15:46 HH [email or web address]) Functional Tests Five Times Sit to Stand Test Score 21 PT-OP-F Manual Assessment Start: 07/12/19 13:55 Freq: Status: Active Protocol: Document 07/12/19 13:00 HH (Rec: 07/12/19 14:30 HH [email or web address]) Manual Assessments Soft Tissue Assessment Soft Tissue Mobility Assessment significant tenderness to pressure below R SIJ and piriformis PT-OP-H Neuro Start: 07/12/19 13:55 Freq: Status: Active Protocol: Document 07/12/19 13:00 HH (Rec: 07/12/19 14:30 HH [email or web address]) Sensation Evaluation Gross Sensation Gross Sensation Right LE Impaired Dermatome Impairments L5,S1 Comments Summary Comments decreased sensation to LT and pressure at lateral lower leg and R big toe. Deep Tendon Reflex & Clonus Assessment Deep Tendon Reflex Bilateral Achilles Deep Tendon Reflex 1+ Diminished Bilateral Patellar Deep Tendon Reflex 1+ Diminished PT-OP-J Posture/Palpation/Skin Start: 07/12/19 13:55 Freq: Status: Active Protocol: Document 07/12/19 13:00 HH (Rec: 07/12/19 14:30 [email or web address]) Posture Evaluation Position Standing Evaluation View Lateral T-Spine Posture Increased Kyphosis L-Spine Posture Increased Lordosis Weight Distribution Weight Shifted Anterior PT-OP-M Strength Start: 07/12/19 13:55 Freq: Status: Active Protocol: Document 07/12/19 13:00 HH (Rec: 07/12/19 14:30 [email or web address]) Hip Strength Hip Manual Muscle Testing Left Flexion (L2) 4+ Good+ Extension (S1) 4 Good Abduction 4+ Good+ Adduction 4+ Good+ External Rotation 4+ Good+ Internal Rotation 4+ Good+ Right Flexion (L2) 4- Good- Extension (S1) 3+ Fair+ Abduction 3+ Fair+ Adduction 4 Good External Rotation 3+ Fair+ Internal Rotation 3+ Fair+ Knee Strength Knee Manual Muscle Testing Left Flexion (S2) 4+ Good+ Extension (L3) 4+ Good+ Right Flexion (S2) 3+ Fair+ Extension (L3) 4 Good Comments increased R back pain during resisted R knee flexion Ankle/Foot Strength Ankle and Foot Manual Muscle Testing Left Dorsiflexion (L4) 4+ Good+ Plantarflexion (S1) 4+ Good+ Inversion 4+ Good+ Eversion (S1) 4+ Good+ Right Dorsiflexion (L4) 4- Good- Plantarflexion (S1) 4- Good- Inversion 4 Good Eversion (S1) 4 Good PT-OP-Q Treatments Start: 07/12/19 13:55 Freq: Status: Active Protocol: Document 11/08/19 16:46 HH (Rec: 11/08/19 18:04 [email or web address]) Cardio Equipment Elliptical Duration (Minutes) 7 Resistance 5 Therapeutic Exercises Supine Exercises t/s extension Supine Exercise Name half foam roller Side bilateral Reps/Minutes 2 mins supine knee to chest Supine Exercise Name encourage lumbar flexion Side bilateral Reps/Minutes 4 mins isometrics Supine Exercise Name 4 ways isometrics against PT resistance Side bilateral Reps/Minutes 10 sec holdx 5 deadbug Supine Exercise Name unilateral but opposite ball squeeze Side bilateral Reps/Minutes 10 sec hold x5 SLR Supine Exercise Name with opposite knee bend Side bilateral Comments slow active SLR with abdominal engagement Prone Exercises child pose + prone extension Prone Exercise Name child pose Side bilateral Reps/Minutes 15 times x 2 cat camel Prone Exercise Name lumbar pelvic tilt only Reps/Minutes 6 mins Comments cues on flat T/s Manual Therapy Treatment Soft Tissue Mobilization R paraspinals Mobilization Type Strumming,Sustained Pressure, Trigger Point Release Intensity/Depth Moderate Body Position Prone Comments at child pose position Joint Mobilizations R hip distraction Grade III Body Position Hooklying Reps/Duration 10 sec hold x 5 Comments followed by inferior glide PT-OP-R Modalities Start: 07/12/19 13:55 Freq: Status: Active Protocol: Document 08/02/19 16:50 DCW (Rec: 08/02/19 17:27 [email or web address] [id number]) Electric Stimulation Electric Stimulation Functional Electric Stimulation Body Location Lumbar Spine Duration (Minutes) 15 Patient Position Hooklying Combined With Heat/Cold Hot Pack PT-OP-T Assessment and Plan Start: 07/12/19 13:55 Freq: Status: Active Protocol: Document 11/08/19 16:46 HH (Rec: 11/08/19 18:04 HH [email or web address]) Physical Therapy Assessment Goals Return to hobby Impairment Pt is currently unable to do gardening work due to LBP Short Term Goal (STG) Pt will be able to start gardening >10 mins without increased LBP. STG Duration 5 weeks Jail Goal (LTG) 10/25 in progress: Pt has not attempted any gardening work since sx. Pt will be able to start gardening >20 mins without increased LBP. LTG Duration 10 weeks strength Impairment Pt demonstrates significant R LE weakness Short Term Goal (STG) Pt will be able to improve her RLE strength by 1/2 MMT grade Garnett Feeder Goal (LTG) 10/25 in progress: hip IR= 3/5 and ER = 3+/5 Pt will be able to improve her overall RLE strength by 1 MMT grade so she can bend over to seed cone picker object >20 lbs from low surface without increased pain. LTG Duration 10 weeks activity tolerance Impairment Pt has increased LBP with sitting/ standing >15 mins Short Term Goal (STG) Pt will have no more than >5/ 10 LBP for sitting/ standing > 15 mins STG Duration 5 weeks Jail Goal (LTG) 10/25 in progress: Pt is able to cesia about 30 mins of driving but does have pain 3-5/10. Pain at [address] Pt will have no more than >3/ 10 LBP for sitting/ standing > 30 mins LTG Duration 10 weeks Oswestry LBP Impairment Pt scores 56 (40-59% impairment) on Oswestry LBP questionnaire Short Term Goal (STG) Pt will score <40 (20-39% impairment) on Oswestry LBP questionnaire Garnett Feeder Goal (LTG) 09/20 cont in progress: pt scores 62 today but she reports she has been reduced her medication by half since IE. Pt will score <20 (1-19% impairment) on Oswestry LBP questionnaire to improve her quality of life LTG Duration 10 weeks Assessment Summary Assessment Focused on lumbar stability ex and segmental flexion. Pt does need cues for abdominal engagment during SLR, deadbug hold. Pt cesia tx very well without discomfort. Physical Therapy Plan Next Visit Focus/Plan Next Note Type Treatment Note Next Visit Plan review HEP/ assess tolerance for last sessoin lumbar/abd stability ex in prone/ supine/ seated isolated hip stability/ active ROM with resistance as cesia.
--- NOTE | 2019-11-10 13:56 | PT.OTN ---
Current Diagnoses Radiculopathy, lumbar region (11/10/19) Encounter for surgical aftercare following surgery on the nervous system (11/10/19) Physical Therapy Treatment Note PT-OP-A Visit Information Start: 07/12/19 13:55 Freq: Status: Active Protocol: Document 11/10/19 13:02 (Rec: 11/10/19 13:55 [email or web address]) Out-Patient Physical Therapy Visit Information Visit Information Visit Type Treatment Note Visit Start Time 13:02 Visit Stop Time 13:50 Total Visit Minutes 48 Visit Number Number of STATOR PLATE WASHER Visits 0 PT-OP-B Current Condition Start: 07/12/19 13:55 Freq: Status: Active Protocol: Document 07/12/19 13:00 (Rec: 07/12/19 14:30 [email or web address]) Current Condition History of Current Condition Onset Date Jun 02, 2019 Current Complaints s/p R L1-L2 partial laminectomy, LBP, radiating pain to R LE History of Current Condition Pt is a 64 yo female who presents to clinic today s/p s /p R L1-L2 partial laminectomy on 06/02/19 (5 1/2 weeks ago) at with Dr. Alonso. Pt currently follows do deep bending/ twisiting/ heavy lifting until 6 weeks post op. Pt stated her back pain and radiating RLE pain started from this December after she was lifting a ~60lbs object by twisting her back without taking steps. She is currently having ~7/10 pain in a daily basis which aggravated by staying in one position ( standing/sitting) for >15 mins . Changing position usually helps her symptoms but it affects her ability to focus on her current task at work. Pt does know all precautions and able to follow them safely since sx. She is currently in a tansitiont to reduce her pain med from oxycodone (daily ) to tramadol. She also has hx of chronic LBP with L4-L5 fusion in 2014, and she stated that Dr. Alonso suggested she might need another back surgery if this one with PT fails Future Testing and Treatments Planned Dr. Alonso suggested she might need another back surgery if this one with PT fails Treatment Goals Patient/Caregiver Goals 1. 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 To be able to sail with her boat without pain. Prior Functional Status Baseline Function- ADL's Independent Baseline Function- Mobility Independent Baseline Function- Work/School able to sit/stand >1 hour Baseline Function- Recreation/Hobbies able to lift objects > 50 lbs without pain Current Functional Impairments (Reported) Functional Limitations- ADL's No Bending Lifting Twisting for 6 weeks (06/02), log roll for bed mobility Functional Limitations- Work/School unable to sit / stand > 15 minutes without increased pain Functional Limitations- Recreation/ unable to sail due to LBP/ Hobbies gardening PT-OP-C Subjective Start: 07/12/19 13:55 Freq: Status: Active Protocol: Document 11/10/19 13:02 HH (Rec: 11/10/19 13:55 [id number]) OP-PT Subjective Patient Comments Patient Comments I have a little bit of foot pain and back pain from last time. But not too bad. Patient Reported Progress Same PT-OP-D Balance Start: 07/12/19 13:55 Freq: Status: Active Protocol: Document 07/12/19 13:00 HH (Rec: 07/12/19 14:30 [email or web address]) Balance Tests Single Limb Standing Single Limb- Right >30 s Single Limb- Left >30 s Other Other Balance Tests Performed increase R lateral shift and increased R leg pain during SLS on R PT-OP-E Functional Tests Start: 07/12/19 13:55 Freq: Status: Active Protocol: Document 07/12/19 13:00 HH (Rec: 07/12/19 15:46 [email or web address]) Functional Tests Five Times Sit to Stand Test Score 21 PT-OP-F Manual Assessment Start: 07/12/19 13:55 Freq: Status: Active Protocol: Document 07/12/19 13:00 HH (Rec: 07/12/19 14:30 [email or web address]) Manual Assessments Soft Tissue Assessment Soft Tissue Mobility Assessment significant tenderness to pressure below R SIJ and piriformis PT-OP-H Neuro Start: 07/12/19 13:55 Freq: Status: Active Protocol: Document 07/12/19 13:00 HH (Rec: 07/12/19 14:30 [email or web address]) Sensation Evaluation Gross Sensation Gross Sensation Right LE Impaired Dermatome Impairments L5,S1 Comments Summary Comments decreased sensation to LT and pressure at lateral lower leg and R big toe. Deep Tendon Reflex & Clonus Assessment Deep Tendon Reflex Bilateral Achilles Deep Tendon Reflex 1+ Diminished Bilateral Patellar Deep Tendon Reflex 1+ Diminished PT-OP-J Posture/Palpation/Skin Start: 07/12/19 13:55 Freq: Status: Active Protocol: Document 07/12/19 13:00 HH (Rec: 07/12/19 14:30 [email or web address]) Posture Evaluation Position Standing Evaluation View Lateral T-Spine Posture Increased Kyphosis L-Spine Posture Increased Lordosis Weight Distribution Weight Shifted Anterior PT-OP-M Strength Start: 07/12/19 13:55 Freq: Status: Active Protocol: Document 07/12/19 13:00 (Rec: 07/12/19 14:30 [email or web address]) Hip Strength Hip Manual Muscle Testing Left Flexion (L2) 4+ Good+ Extension (S1) 4 Good Abduction 4+ Good+ Adduction 4+ Good+ External Rotation 4+ Good+ Internal Rotation 4+ Good+ Right Flexion (L2) 4- Good- Extension (S1) 3+ Fair+ Abduction 3+ Fair+ Adduction 4 Good External Rotation 3+ Fair+ Internal Rotation 3+ Fair+ Knee Strength Knee Manual Muscle Testing Left Flexion (S2) 4+ Good+ Extension (L3) 4+ Good+ Right Flexion (S2) 3+ Fair+ Extension (L3) 4 Good Comments increased R back pain during resisted R knee flexion Ankle/Foot Strength Ankle and Foot Manual Muscle Testing Left Dorsiflexion (L4) 4+ Good+ Plantarflexion (S1) 4+ Good+ Inversion 4+ Good+ Eversion (S1) 4+ Good+ Right Dorsiflexion (L4) 4- Good- Plantarflexion (S1) 4- Good- Inversion 4 Good Eversion (S1) 4 Good PT-OP-Q Treatments Start: 07/12/19 13:55 Freq: Status: Active Protocol: Document 11/10/19 13:02 (Rec: 11/10/19 13:55 [id number]) Cardio Equipment Elliptical Duration (Minutes) 5 Resistance 5 Therapeutic Exercises Supine Exercises supine knee to chest Supine Exercise Name encourage lumbar flexion Side bilateral Reps/Minutes 4 mins isometrics Supine Exercise Name 4 ways isometrics against PT resistance Side bilateral Reps/Minutes 10 sec holdx 8 Comments hip flex/ abd/ ext/ add deadbug Supine Exercise Name unilateral but opposite ball squeeze Side bilateral Reps/Minutes 10 sec hold x5 SLR Supine Exercise Name with opposite knee bend Side bilateral Comments slow active SLR with abdominal engagement Prone Exercises cat camel Prone Exercise Name lumbar pelvic tilt only Reps/Minutes 6 mins Comments cues on flat T/s Sidelying Exercises clam shell Sidelying Exercise Name isometric Side right Reps/Minutes 8sec x 4 Sitting Exercises seated lumbar flexion Sitting Exercise Name w/o using hand to recover Side bilateral Reps/Minutes 5 x 2 Standing Exercises standing plank Standing Exercise Name elbows on table, feets on floor Side bilateral Reps/Minutes 10 secx 3 J curl Standing Exercise Name w/o using hand to recover Side bilateral Reps/Minutes 5 x2 Manual Therapy Treatment Soft Tissue Mobilization R glutes Mobilization Type Sustained Pressure,Trigger Point Release Intensity/Depth Superficial Body Position Prone Comments Proximal tendon R paraspinals Mobilization Type Strumming,Sustained Pressure, Trigger Point Release Intensity/Depth Moderate Body Position Prone Joint Mobilizations R hip distraction Grade III Body Position Hooklying Reps/Duration 10 sec hold x 5 Comments followed by inferior glide PT-OP-R Modalities Start: 07/12/19 13:55 Freq: Status: Active Protocol: Document 11/10/19 13:02 (Rec: 11/10/19 13:56 [id number]) Hot Pack/Cold Pack Treatment moist heat Patient Position Hooklying Treatment Duration (minutes) 10 Patient Tolerance Good PT-OP-T Assessment and Plan Start: 07/12/19 13:55 Freq: Status: Active Protocol: Document 11/10/19 13:02 (Rec: 11/10/19 13:55 [id number]) Physical Therapy Assessment Goals Return to hobby Impairment Pt is currently unable to do gardening work due to LBP Short Term Goal (STG) Pt will be able to start gardening >10 mins without increased LBP. STG Duration 5 weeks Alf Goal (LTG) 10/25 in progress: Pt has not attempted any gardening work since sx. Pt will be able to start gardening >20 mins without increased LBP. LTG Duration 10 weeks strength Impairment Pt demonstrates significant R LE weakness Short Term Goal (STG) Pt will be able to improve her RLE strength by 1/2 MMT grade Alf Goal (LTG) 10/25 in progress: hip IR= 3/5 and ER = 3+/5 Pt will be able to improve her overall RLE strength by 1 MMT grade so she can bend over to grape picker object >20 lbs from low surface without increased pain. LTG Duration 10 weeks activity tolerance Impairment Pt has increased LBP with sitting/ standing >15 mins Short Term Goal (STG) Pt will have no more than >5/ 10 LBP for sitting/ standing > 15 mins STG Duration 5 weeks Merchandise Stocker Goal (LTG) 10/25 in progress: Pt is able to cesia about 30 [address] of driving but does have pain 3-5/10. Pain at [address] Pt will have no more than >3/ 10 LBP for sitting/ standing > 30 mins LTG Duration 10 weeks Oswestry LBP Impairment Pt scores 56 (40-59% impairment) on Oswestry LBP questionnaire Short Term Goal (STG) Pt will score <40 (20-39% impairment) on Oswestry LBP questionnaire Alf Goal (LTG) 09/20 cont in progress: pt scores 62 today but she reports she has been reduced her medication by half since IE. Pt will score <20 (1-19% impairment) on Oswestry LBP questionnaire to improve her quality of life LTG Duration 10 weeks Assessment Summary Assessment Cont to focus on lumbar segmental mobility (flexion based) and stability today, along with isometric hip exercises. Pt cesia tx well without much discomfort.
--- NOTE | 2019-11-18 16:46 | PT.OTN ---
Current Diagnoses Radiculopathy, lumbar region (11/17/19) Encounter for surgical aftercare following surgery on the nervous system (11/17/19) Physical Therapy Treatment Note PT-OP-A Visit Information Start: 07/12/19 13:55 Freq: Status: Active Protocol: Document 11/17/19 16:02 HH (Rec: 11/18/19 16:46 HH [email or web address]) Out-Patient Physical Therapy Visit Information Visit Information Visit Type Treatment Note Visit Start Time 16:02 Visit Stop Time 16:45 Total Visit Minutes 43 Visit Number Number of TYPE CUTTER Visits 0 PT-OP-B Current Condition Start: 07/12/19 13:55 Freq: Status: Active Protocol: Document 07/12/19 13:00 HH (Rec: 07/12/19 14:30 HH [email or web address]) Current Condition History of Current Condition Onset Date Jun 02, 2019 Current Complaints s/p R L1-L2 partial laminectomy, LBP, radiating pain to R LE History of Current Condition Pt is a 64 yo female who presents to clinic today s/p s /p R L1-L2 partial laminectomy on 06/02/19 (5 1/2 weeks ago) at with Dr. Alonso. Pt currently follows do deep bending/ twisiting/ heavy lifting until 6 weeks post op. Pt stated her back pain and radiating RLE pain started from this December after she was lifting a ~60lbs object by twisting her back without taking steps. She is currently having ~7/10 pain in a daily basis which aggravated by staying in one position ( standing/sitting) for >15 mins . Changing position usually helps her symptoms but it affects her ability to focus on her current task at work. Pt does know all precautions and able to follow them safely since sx. She is currently in a tansitiont to reduce her pain med from oxycodone (daily ) to tramadol. She also has hx of chronic LBP with L4-L5 fusion in 2014, and she stated that Dr. Alonso suggested she might need another back surgery if this one with PT fails Future Testing and Treatments Planned Dr. Alonso suggested she might need another back surgery if this one with PT fails Treatment Goals Patient/Caregiver Goals 1. 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 To be able to sail with her boat without pain. Prior Functional Status Baseline Function- ADL's Independent Baseline Function- Mobility Independent Baseline Function- Work/School able to sit/stand >1 hour Baseline Function- Recreation/Hobbies able to lift objects > 50 lbs without pain Current Functional Impairments (Reported) Functional Limitations- ADL's No Bending Lifting Twisting for 6 weeks (06/02), log roll for bed mobility Functional Limitations- Work/School unable to sit / stand > 15 minutes without increased pain Functional Limitations- Recreation/ unable to sail due to LBP/ Hobbies gardening PT-OP-C Subjective Start: 07/12/19 13:55 Freq: Status: Active Protocol: Document 11/17/19 16:02 HH (Rec: 11/18/19 16:46 [email or web address]) OP-PT Subjective Patient Comments Patient Comments My back was not feeling during the past couple days and I had to call off from work for a day. Patient Reported Progress Same PT-OP-D Balance Start: 07/12/19 13:55 Freq: Status: Active Protocol: Document 07/12/19 13:00 HH (Rec: 07/12/19 14:30 [email or web address]) Balance Tests Single Limb Standing Single Limb- Right >30 s Single Limb- Left >30 s Other Other Balance Tests Performed increase R lateral shift and increased R leg pain during SLS on R PT-OP-E Functional Tests Start: 07/12/19 13:55 Freq: Status: Active Protocol: Document 07/12/19 13:00 HH (Rec: 07/12/19 15:46 [email or web address]) Functional Tests Five Times Sit to Stand Test Score 21 PT-OP-F Manual Assessment Start: 07/12/19 13:55 Freq: Status: Active Protocol: Document 07/12/19 13:00 HH (Rec: 07/12/19 14:30 [email or web address]) Manual Assessments Soft Tissue Assessment Soft Tissue Mobility Assessment significant tenderness to pressure below R SIJ and piriformis PT-OP-H Neuro Start: 07/12/19 13:55 Freq: Status: Active Protocol: Document 07/12/19 13:00 HH (Rec: 07/12/19 14:30 [email or web address]) Sensation Evaluation Gross Sensation Gross Sensation Right LE Impaired Dermatome Impairments L5,S1 Comments Summary Comments decreased sensation to LT and pressure at lateral lower leg and R big toe. Deep Tendon Reflex & Clonus Assessment Deep Tendon Reflex Bilateral Achilles Deep Tendon Reflex 1+ Diminished Bilateral Patellar Deep Tendon Reflex 1+ Diminished PT-OP-J Posture/Palpation/Skin Start: 07/12/19 13:55 Freq: Status: Active Protocol: Document 07/12/19 13:00 HH (Rec: 07/12/19 14:30 [email or web address]) Posture Evaluation Position Standing Evaluation View Lateral T-Spine Posture Increased Kyphosis L-Spine Posture Increased Lordosis Weight Distribution Weight Shifted Anterior PT-OP-M Strength Start: 07/12/19 13:55 Freq: Status: Active Protocol: Document 07/12/19 13:00 HH (Rec: 07/12/19 14:30 [email or web address]) Hip Strength Hip Manual Muscle Testing Left Flexion (L2) 4+ Good+ Extension (S1) 4 Good Abduction 4+ Good+ Adduction 4+ Good+ External Rotation 4+ Good+ Internal Rotation 4+ Good+ Right Flexion (L2) 4- Good- Extension (S1) 3+ Fair+ Abduction 3+ Fair+ Adduction 4 Good External Rotation 3+ Fair+ Internal Rotation 3+ Fair+ Knee Strength Knee Manual Muscle Testing Left Flexion (S2) 4+ Good+ Extension (L3) 4+ Good+ Right Flexion (S2) 3+ Fair+ Extension (L3) 4 Good Comments increased R back pain during resisted R knee flexion Ankle/Foot Strength Ankle and Foot Manual Muscle Testing Left Dorsiflexion (L4) 4+ Good+ Plantarflexion (S1) 4+ Good+ Inversion 4+ Good+ Eversion (S1) 4+ Good+ Right Dorsiflexion (L4) 4- Good- Plantarflexion (S1) 4- Good- Inversion 4 Good Eversion (S1) 4 Good PT-OP-Q Treatments Start: 07/12/19 13:55 Freq: Status: Active Protocol: Document 11/17/19 16:02 HH (Rec: 11/18/19 16:46 [email or web address]) Therapeutic Exercises Supine Exercises isometrics Supine Exercise Name 4 ways isometrics against PT resistance Side bilateral Reps/Minutes 10 sec holdx 8 Comments hip flex/ abd/ ext/ add deadbug Supine Exercise Name unilateral but opposite ball squeeze Side bilateral Reps/Minutes 10 sec hold x5 Strapping Treatment Treatment Body Location pelvis girdle Details of Treatment attempt SI belt today to provide SIJ stability. Pt reports not much symptoms while ambulating but symptoms worsen without SI belt. PT-OP-R Modalities Start: 07/12/19 13:55 Freq: Status: Active Protocol: Document 11/10/19 13:02 HH (Rec: 11/10/19 13:56 HH [id number]) Hot Pack/Cold Pack Treatment moist heat Patient Position Hooklying Treatment Duration (minutes) 10 Patient Tolerance Good PT-OP-T Assessment and Plan Start: 07/12/19 13:55 Freq: Status: Active Protocol: Document 11/17/19 16:02 HH (Rec: 11/18/19 16:46 HH [email or web address]) Physical Therapy Assessment Goals Return to hobby Impairment Pt is currently unable to do gardening work due to LBP Short Term Goal (STG) Pt will be able to start gardening >10 mins without increased LBP. STG Duration 5 weeks Senior Living Goal (LTG) 10/25 in progress: Pt has not attempted any gardening work since sx. Pt will be able to start gardening >20 mins without increased LBP. LTG Duration 10 weeks strength Impairment Pt demonstrates significant R LE weakness Short Term Goal (STG) Pt will be able to improve her RLE strength by 1/2 MMT grade Pit Clerk Goal (LTG) 10/25 in progress: hip IR= 3/5 and ER = 3+/5 Pt will be able to improve her overall RLE strength by 1 MMT grade so she can bend over to pick up worker object >20 lbs from low surface without increased pain. LTG Duration 10 weeks activity tolerance Impairment Pt has increased LBP with sitting/ standing >15 mins Short Term Goal (STG) Pt will have no more than >5/ 10 LBP for sitting/ standing > 15 mins STG Duration 5 weeks Senior Living Goal (LTG) 10/25 in progress: Pt is able to cesia about 30 mins of driving but does have pain 3-5/10. Pain at [address]. Pt will have no more than >3/ 10 LBP for sitting/ standing > 30 mins LTG Duration 10 weeks Oswestry LBP Impairment Pt scores 56 (40-59% impairment) on Oswestry LBP questionnaire Short Term Goal (STG) Pt will score <40 (20-39% impairment) on Oswestry LBP questionnaire Pit Clerk Goal (LTG) 09/20 cont in progress: pt scores 62 today but she reports she has been reduced her medication by half since IE. Pt will score <20 (1-19% impairment) on Oswestry LBP questionnaire to improve her quality of life LTG Duration 10 weeks Assessment Summary Assessment Pt had a flare up during the past couple days. Spent time to dis with pt's regarding her current rehab progress which cont to address stability. Trial with SI belt today and pt noticed there's decreased radiating symptoms during ambulation but she is entirely sure. Prescription for SI belt was sent to PCP. Will attempt again for next visit.
--- NOTE | 2019-11-21 10:05 | PT-OP ANOTE ---
Pt no showed today's appt. DIRECTOR PRODUCT DEVELOPMENT called and patient stated was having alot of LBP, took some medication and took a nap and just woke up. Pt asked if have a cancellation today to call her and would come in. DIRECTOR PRODUCT DEVELOPMENT reminded her of next appt 11/29 at 9am with her PT Jarred with verbal confirmation.
--- NOTE | 2019-11-29 12:32 | PT.OTN ---
Current Diagnoses Radiculopathy, lumbar region (11/29/19) Encounter for surgical aftercare following surgery on the nervous system (11/29/19) Physical Therapy Treatment Note PT-OP-A Visit Information Start: 07/12/19 13:55 Freq: Status: Active Protocol: Document 11/29/19 08:58 HH (Rec: 11/29/19 12:32 [email or web address]) Out-Patient Physical Therapy Visit Information Visit Information Visit Type Treatment Note Visit Start Time 08:58 Visit Stop Time 09:45 Total Visit Minutes 47 Visit Number Number of SENIOR ENGINEERING TECHNICIAN Visits 0 PT-OP-B Current Condition Start: 07/12/19 13:55 Freq: Status: Active Protocol: Document 07/12/19 13:00 HH (Rec: 07/12/19 14:30 [email or web address]) Current Condition History of Current Condition Onset Date Jun 02, 2019 Current Complaints s/p R L1-L2 partial laminectomy, LBP, radiating pain to R LE History of Current Condition Pt is a 64 yo female who presents to clinic today s/p s /p R L1-L2 partial laminectomy on 06/02/19 (5 1/2 weeks ago) at with Dr. Alonso. Pt currently follows do deep bending/ twisiting/ heavy lifting until 6 weeks post op. Pt stated her back pain and radiating RLE pain started from this December after she was lifting a ~60lbs object by twisting her back without taking steps. She is currently having ~7/10 pain in a daily basis which aggravated by staying in one position ( standing/sitting) for >15 mins . Changing position usually helps her symptoms but it affects her ability to focus on her current task at work. Pt does know all precautions and able to follow them safely since sx. She is currently in a tansitiont to reduce her pain med from oxycodone (daily ) to tramadol. She also has hx of chronic LBP with L4-L5 fusion in 2014, and she stated that Dr. Alonso suggested she might need another back surgery if this one with PT fails Future Testing and Treatments Planned Dr. Alonso suggested she might need another back surgery if this one with PT fails Treatment Goals Patient/Caregiver Goals 1. 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 To be able to sail with her boat without pain. Prior Functional Status Baseline Function- ADL's Independent Baseline Function- Mobility Independent Baseline Function- Work/School able to sit/stand >1 hour Baseline Function- Recreation/Hobbies able to lift objects > 50 lbs without pain Current Functional Impairments (Reported) Functional Limitations- ADL's No Bending Lifting Twisting for 6 weeks (06/02), log roll for bed mobility Functional Limitations- Work/School unable to sit / stand > 15 minutes without increased pain Functional Limitations- Recreation/ unable to sail due to LBP/ Hobbies gardening PT-OP-C Subjective Start: 07/12/19 13:55 Freq: Status: Active Protocol: Document 11/29/19 08:58 HH (Rec: 11/29/19 12:32 HH [id number]) OP-PT Subjective Patient Comments Patient Comments My back has been bothering me a lot since last visit and i dont know why. It's been 5-6/ 10 the whole time. And im going to get injection for my back soon. Patient Reported Progress Worse PT-OP-D Balance Start: 07/12/19 13:55 Freq: Status: Active Protocol: Document 07/12/19 13:00 HH (Rec: 07/12/19 14:30 HH [email or web address]) Balance Tests Single Limb Standing Single Limb- Right >30 s Single Limb- Left >30 s Other Other Balance Tests Performed increase R lateral shift and increased R leg pain during SLS on R PT-OP-E Functional Tests Start: 07/12/19 13:55 Freq: Status: Active Protocol: Document 07/12/19 13:00 HH (Rec: 07/12/19 15:46 HH [email or web address]) Functional Tests Five Times Sit to Stand Test Score 21 PT-OP-F Manual Assessment Start: 07/12/19 13:55 Freq: Status: Active Protocol: Document 07/12/19 13:00 HH (Rec: 07/12/19 14:30 HH [email or web address]) Manual Assessments Soft Tissue Assessment Soft Tissue Mobility Assessment significant tenderness to pressure below R SIJ and piriformis PT-OP-H Neuro Start: 07/12/19 13:55 Freq: Status: Active Protocol: Document 07/12/19 13:00 HH (Rec: 07/12/19 14:30 HH [email or web address]) Sensation Evaluation Gross Sensation Gross Sensation Right LE Impaired Dermatome Impairments L5,S1 Comments Summary Comments decreased sensation to LT and pressure at lateral lower leg and R big toe. Deep Tendon Reflex & Clonus Assessment Deep Tendon Reflex Bilateral Achilles Deep Tendon Reflex 1+ Diminished Bilateral Patellar Deep Tendon Reflex 1+ Diminished PT-OP-J Posture/Palpation/Skin Start: 07/12/19 13:55 Freq: Status: Active Protocol: Document 07/12/19 13:00 HH (Rec: 07/12/19 14:30 [email or web address]) Posture Evaluation Position Standing Evaluation View Lateral T-Spine Posture Increased Kyphosis L-Spine Posture Increased Lordosis Weight Distribution Weight Shifted Anterior PT-OP-M Strength Start: 07/12/19 13:55 Freq: Status: Active Protocol: Document 07/12/19 13:00 HH (Rec: 07/12/19 14:30 [email or web address]) Hip Strength Hip Manual Muscle Testing Left Flexion (L2) 4+ Good+ Extension (S1) 4 Good Abduction 4+ Good+ Adduction 4+ Good+ External Rotation 4+ Good+ Internal Rotation 4+ Good+ Right Flexion (L2) 4- Good- Extension (S1) 3+ Fair+ Abduction 3+ Fair+ Adduction 4 Good External Rotation 3+ Fair+ Internal Rotation 3+ Fair+ Knee Strength Knee Manual Muscle Testing Left Flexion (S2) 4+ Good+ Extension (L3) 4+ Good+ Right Flexion (S2) 3+ Fair+ Extension (L3) 4 Good Comments increased R back pain during resisted R knee flexion Ankle/Foot Strength Ankle and Foot Manual Muscle Testing Left Dorsiflexion (L4) 4+ Good+ Plantarflexion (S1) 4+ Good+ Inversion 4+ Good+ Eversion (S1) 4+ Good+ Right Dorsiflexion (L4) 4- Good- Plantarflexion (S1) 4- Good- Inversion 4 Good Eversion (S1) 4 Good PT-OP-Q Treatments Start: 07/12/19 13:55 Freq: Status: Active Protocol: Document 11/29/19 08:58 HH (Rec: 11/29/19 12:32 [id number]) Cardio Equipment Elliptical Duration (Minutes) 6 Resistance 5 Other with SI belt Therapeutic Exercises Supine Exercises unilateral hip ER Side bilateral Equipment Used with yellow band Reps/Minutes 8 x2 hip welding teacher Side bilateral Equipment Used yellow band Reps/Minutes 8 x2 SLR Supine Exercise Name with opposite LE straight Side bilateral Comments slow active SLR with abdominal engagement Prone Exercises birddog Prone Exercise Name hip extension only, prone on elbow Reps/Minutes 12 x 2 Comments c/o back tightness, cues on glute engagement. Standing Exercises hip hinge Standing Exercise Name with knee out, neutral spine Side bilateral Reps/Minutes 10 x2 Strapping Treatment Treatment Body Location pelvis girdle Details of Treatment attempt SI belt today for the whole session to provide SIJ stability. Pt reports not much radiating symptoms while therex PT-OP-R Modalities Start: 07/12/19 13:55 Freq: Status: Active Protocol: Document 11/10/19 13:02 HH (Rec: 11/10/19 13:56 [id number]) Hot Pack/Cold Pack Treatment moist heat Patient Position Hooklying Treatment Duration (minutes) 10 Patient Tolerance Good PT-OP-T Assessment and Plan Start: 07/12/19 13:55 Freq: Status: Active Protocol: Document 11/29/19 08:58 HH (Rec: 11/29/19 12:32 [id number]) Physical Therapy Assessment Goals Return to hobby Impairment Pt is currently unable to do gardening work due to LBP Short Term Goal (STG) Pt will be able to start gardening >10 mins without increased LBP. STG Duration 5 weeks [facility] Goal (LTG) 10/25 in progress: Pt has not attempted any gardening work since sx. Pt will be able to start gardening >20 mins without increased LBP. LTG Duration 10 weeks strength Impairment Pt demonstrates significant R LE weakness Short Term Goal (STG) Pt will be able to improve her RLE strength by 1/2 MMT grade [facility] Goal (LTG) 10/25 in progress: hip IR= 3/5 and ER = 3+/5 Pt will be able to improve her overall RLE strength by 1 MMT grade so she can bend over to vegetable picker object >20 lbs from low surface without increased pain. LTG Duration 10 weeks activity tolerance Impairment Pt has increased LBP with sitting/ standing >15 mins Short Term Goal (STG) Pt will have no more than >5/ 10 LBP for sitting/ standing > 15 mins STG Duration 5 weeks Cotton Stripper Goal (LTG) 10/25 in progress: Pt is able to cesia about 30 mins of driving but does have pain 3-5/10. Pain at [address] Pt will have no more than >3/ 10 LBP for sitting/ standing > 30 mins LTG Duration 10 weeks Oswestry LBP Impairment Pt scores 56 (40-59% impairment) on Oswestry LBP questionnaire Short Term Goal (STG) Pt will score <40 (20-39% impairment) on Oswestry LBP questionnaire Cotton Stripper Goal (LTG) 09/20 cont in progress: pt scores 62 today but she reports she has been reduced her medication by half since IE. Pt will score <20 (1-19% impairment) on Oswestry LBP questionnaire to improve her quality of life LTG Duration 10 weeks Assessment Summary Assessment Used SI belt for the session today. Ex mostly in supine and prone position for trunk stability and isolated hip extension. Pt did not increase of radiating pain. Pt will be scehduled for injection for pain management. Will cont monitor
--- NOTE | 2019-12-01 09:06 | PT.OTN ---
Current Diagnoses Radiculopathy, lumbar region (12/01/19) Encounter for surgical aftercare following surgery on the nervous system (12/01/19) Physical Therapy Treatment Note PT-OP-A Visit Information Start: 07/12/19 13:55 Freq: Status: Active Protocol: Document 12/01/19 08:16 HH (Rec: 12/01/19 09:06 [id number]) Out-Patient Physical Therapy Visit Information Visit Information Visit Type Treatment Note Visit Start Time 08:14 Visit Stop Time 09:00 Total Visit Minutes 46 Visit Number Number of RIVER DRIVER Visits 0 PT-OP-B Current Condition Start: 07/12/19 13:55 Freq: Status: Active Protocol: Document 07/12/19 13:00 HH (Rec: 07/12/19 14:30 [email or web address]) Current Condition History of Current Condition Onset Date Jun 02, 2019 Current Complaints s/p R L1-L2 partial laminectomy, LBP, radiating pain to R LE History of Current Condition Pt is a 64 yo female who presents to clinic today s/p s /p R L1-L2 partial laminectomy on 06/02/19 (5 1/2 weeks ago) at with Dr. Alonso. Pt currently follows do deep bending/ twisiting/ heavy lifting until 6 weeks post op. Pt stated her back pain and radiating RLE pain started from this December after she was lifting a ~60lbs object by twisting her back without taking steps. She is currently having ~7/10 pain in a daily basis which aggravated by staying in one position ( standing/sitting) for >15 mins . Changing position usually helps her symptoms but it affects her ability to focus on her current task at work. Pt does know all precautions and able to follow them safely since sx. She is currently in a tansitiont to reduce her pain med from oxycodone (daily ) to tramadol. She also has hx of chronic LBP with L4-L5 fusion in 2014, and she stated that Dr. Alonso suggested she might need another back surgery if this one with PT fails Future Testing and Treatments Planned Dr. Alonso suggested she might need another back surgery if this one with PT fails Treatment Goals Patient/Caregiver Goals 1. 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 To improve her core strength 3. To sit/vitreo retinal surgeon one positiont > 15 mins without increased pain 4. To be able to sail with her boat without pain. Prior Functional Status Baseline Function- ADL's Independent Baseline Function- Mobility Independent Baseline Function- Work/School able to sit/stand >1 hour Baseline Function- Recreation/Hobbies able to lift objects > 50 lbs without pain Current Functional Impairments (Reported) Functional Limitations- ADL's No Bending Lifting Twisting for 6 weeks (06/02), log roll for bed mobility Functional Limitations- Work/School unable to sit / stand > 15 minutes without increased pain Functional Limitations- Recreation/ unable to sail due to LBP/ Hobbies gardening PT-OP-C Subjective Start: 07/12/19 13:55 Freq: Status: Active Protocol: Document 12/01/19 08:16 HH (Rec: 12/01/19 09:06 [id number]) OP-PT Subjective Patient Comments Patient Comments Yesterday i had a rough day and i had to take extra tylenol and i had this heel pain sensation Patient Reported Progress Same PT-OP-D Balance Start: 07/12/19 13:55 Freq: Status: Active Protocol: Document 07/12/19 13:00 HH (Rec: 07/12/19 14:30 [email or web address]) Balance Tests Single Limb Standing Single Limb- Right >30 s Single Limb- Left >30 s Other Other Balance Tests Performed increase R lateral shift and increased R leg pain during SLS on R PT-OP-E Functional Tests Start: 07/12/19 13:55 Freq: Status: Active Protocol: Document 07/12/19 13:00 HH (Rec: 07/12/19 15:46 HH [email or web address]) Functional Tests Five Times Sit to Stand Test Score 21 PT-OP-F Manual Assessment Start: 07/12/19 13:55 Freq: Status: Active Protocol: Document 07/12/19 13:00 HH (Rec: 07/12/19 14:30 HH [email or web address]) Manual Assessments Soft Tissue Assessment Soft Tissue Mobility Assessment significant tenderness to pressure below R SIJ and piriformis PT-OP-H Neuro Start: 07/12/19 13:55 Freq: Status: Active Protocol: Document 07/12/19 13:00 HH (Rec: 07/12/19 14:30 HH [email or web address]) Sensation Evaluation Gross Sensation Gross Sensation Right LE Impaired Dermatome Impairments L5,S1 Comments Summary Comments decreased sensation to LT and pressure at lateral lower leg and R big toe. Deep Tendon Reflex & Clonus Assessment Deep Tendon Reflex Bilateral Achilles Deep Tendon Reflex 1+ Diminished Bilateral Patellar Deep Tendon Reflex 1+ Diminished PT-OP-J Posture/Palpation/Skin Start: 07/12/19 13:55 Freq: Status: Active Protocol: Document 07/12/19 13:00 HH (Rec: 07/12/19 14:30 [email or web address]) Posture Evaluation Position Standing Evaluation View Lateral T-Spine Posture Increased Kyphosis L-Spine Posture Increased Lordosis Weight Distribution Weight Shifted Anterior PT-OP-M Strength Start: 07/12/19 13:55 Freq: Status: Active Protocol: Document 07/12/19 13:00 (Rec: 07/12/19 14:30 [email or web address]) Hip Strength Hip Manual Muscle Testing Left Flexion (L2) 4+ Good+ Extension (S1) 4 Good Abduction 4+ Good+ Adduction 4+ Good+ External Rotation 4+ Good+ Internal Rotation 4+ Good+ Right Flexion (L2) 4- Good- Extension (S1) 3+ Fair+ Abduction 3+ Fair+ Adduction 4 Good External Rotation 3+ Fair+ Internal Rotation 3+ Fair+ Knee Strength Knee Manual Muscle Testing Left Flexion (S2) 4+ Good+ Extension (L3) 4+ Good+ Right Flexion (S2) 3+ Fair+ Extension (L3) 4 Good Comments increased R back pain during resisted R knee flexion Ankle/Foot Strength Ankle and Foot Manual Muscle Testing Left Dorsiflexion (L4) 4+ Good+ Plantarflexion (S1) 4+ Good+ Inversion 4+ Good+ Eversion (S1) 4+ Good+ Right Dorsiflexion (L4) 4- Good- Plantarflexion (S1) 4- Good- Inversion 4 Good Eversion (S1) 4 Good PT-OP-Q Treatments Start: 07/12/19 13:55 Freq: Status: Active Protocol: Document 12/01/19 08:16 (Rec: 12/01/19 09:06 [id number]) Gym Equipment Shuttle Recovery Unilateral Squats Resistance #50 Shuttle Recovery Platform Stable Reps/Time 10 x2 Bilateral Squats Resistance #50 Shuttle Recovery Platform Stable Reps/Time with yellow band at knees Therapeutic Exercises Supine Exercises unilateral hip ER Side bilateral Equipment Used with yellow band Reps/Minutes 8 x2 hip cloth opener hand Side bilateral Equipment Used yellow band Reps/Minutes 8 x2 Prone Exercises birddog Prone Exercise Name hip extension only, prone on elbow Reps/Minutes 8 x2 Comments c/o back tightness, cues on glute engagement. Standing Exercises hip hinge Standing Exercise Name with knee out, neutral spine Side bilateral Resistance yellow band at knees Reps/Minutes 10 x2 Comments denied discomfort step up Standing Exercise Name for LLE, no step for RLE Side bilateral Equipment Used 6 block Strapping Treatment Treatment Body Location pelvis girdle Details of Treatment Dispensed SI belt today. SI belt today for the whole session to provide SIJ stability. Pt reports not much radiating symptoms while therex PT-OP-R Modalities Start: 07/12/19 13:55 Freq: Status: Active Protocol: Document 11/10/19 13:02 (Rec: 11/10/19 13:56 [id number]) Hot Pack/Cold Pack Treatment moist heat Patient Position Hooklying Treatment Duration (minutes) 10 Patient Tolerance Good PT-OP-T Assessment and Plan Start: 07/12/19 13:55 Freq: Status: Active Protocol: Document 12/01/19 08:16 (Rec: 12/01/19 09:06 [id number]) Physical Therapy Assessment Goals Return to hobby Impairment Pt is currently unable to do gardening work due to LBP Short Term Goal (STG) Pt will be able to start gardening >10 mins without increased LBP. STG Duration 5 weeks Correction Goal (LTG) 10/25 in progress: Pt has not attempted any gardening work since sx. Pt will be able to start gardening >20 mins without increased LBP. 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 LTG Duration 10 weeks activity tolerance Impairment Pt has increased LBP with sitting/ standing >15 mins Short Term Goal (STG) Pt will have no more than >5/ 10 LBP for sitting/ standing > 15 mins STG Duration 5 weeks Oven Laborer Goal (LTG) 10/25 in progress: Pt is able to cesia about 30 mins of driving but does have pain 3-5/10. Pain at [address] Pt will have no more than >3/ 10 LBP for sitting/ standing > 30 mins LTG Duration 10 weeks Oswestry LBP Impairment Pt scores 56 (40-59% impairment) on Oswestry LBP questionnaire Short Term Goal (STG) Pt will score <40 (20-39% impairment) on Oswestry LBP questionnaire Oven Laborer Goal (LTG) 09/20 cont in progress: pt scores 62 today but she reports she has been reduced her medication by half since IE. Pt will score <20 (1-19% impairment) on Oswestry LBP questionnaire to improve her quality of life LTG Duration 10 weeks Assessment Summary Assessment Tx focused on trunk and hip stability. Pt cont to have increase pain/ tingling sensation to R foot in WB position. She denied discomfort during hip hinge with yellow band at knees. Dispensed SI belt. Physical Therapy Plan Next Visit Focus/Plan Next Note Type Treatment Note Next Visit Plan check SI belt tolerance cont trunk stability and hip stability work.
--- NOTE | 2019-12-06 09:10 | PT.OTN ---
Current Diagnoses Radiculopathy, lumbar region (12/06/19) Encounter for surgical aftercare following surgery on the nervous system (12/06/19) Physical Therapy Treatment Note PT-OP-A Visit Information Start: 07/12/19 13:55 Freq: Status: Active Protocol: Document 12/06/19 08:16 HH (Rec: 12/06/19 09:10 [id number]) Out-Patient Physical Therapy Visit Information Visit Information Visit Type Treatment Note Visit Start Time 08:16 Visit Stop Time 09:00 Total Visit Minutes 44 Visit Number Number of VP SOFTWARE Visits 0 PT-OP-B Current Condition Start: 07/12/19 13:55 Freq: Status: Active Protocol: Document 07/12/19 13:00 HH (Rec: 07/12/19 14:30 [email or web address]) Current Condition History of Current Condition Onset Date Jun 02, 2019 Current Complaints s/p R L1-L2 partial laminectomy, LBP, radiating pain to R LE History of Current Condition Pt is a 64 yo female who presents to clinic today s/p s /p R L1-L2 partial laminectomy on 06/02/19 (5 1/2 weeks ago) at with Dr. Alonso. Pt currently follows do deep bending/ twisiting/ heavy lifting until 6 weeks post op. Pt stated her back pain and radiating RLE pain started from this December after she was lifting a ~60lbs object by twisting her back without taking steps. She is currently having ~7/10 pain in a daily basis which aggravated by staying in one position ( standing/sitting) for >15 mins . Changing position usually helps her symptoms but it affects her ability to focus on her current task at work. Pt does know all precautions and able to follow them safely since sx. She is currently in a tansitiont to reduce her pain med from oxycodone (daily ) to tramadol. She also has hx of chronic LBP with L4-L5 fusion in 2014, and she stated that Dr. Alonso suggested she might need another back surgery if this one with PT fails Future Testing and Treatments Planned Dr. Alonso suggested she might need another back surgery if this one with PT fails Treatment Goals Patient/Caregiver Goals 1. 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 To improve her core strength 3. 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 To be able to sail with her boat without pain. Prior Functional Status Baseline Function- ADL's Independent Baseline Function- Mobility Independent Baseline Function- Work/School able to sit/stand >1 hour Baseline Function- Recreation/Hobbies able to lift objects > 50 lbs without pain Current Functional Impairments (Reported) Functional Limitations- ADL's No Bending Lifting Twisting for 6 weeks (06/02), log roll for bed mobility Functional Limitations- Work/School unable to sit / stand > 15 minutes without increased pain Functional Limitations- Recreation/ unable to sail due to LBP/ Hobbies gardening PT-OP-C Subjective Start: 07/12/19 13:55 Freq: Status: Active Protocol: Document 12/06/19 08:16 HH (Rec: 12/06/19 09:10 HH [id number]) OP-PT Subjective Patient Comments Patient Comments the belt seems to help me especially stabilizing my hip and back so it's pretty good. Kiya been doing pretty good the past few days Patient Reported Progress Improving PT-OP-D Balance Start: 07/12/19 13:55 Freq: Status: Active Protocol: Document 07/12/19 13:00 HH (Rec: 07/12/19 14:30 HH [email or web address]) Balance Tests Single Limb Standing Single Limb- Right >30 s Single Limb- Left >30 s Other Other Balance Tests Performed increase R lateral shift and increased R leg pain during SLS on R PT-OP-E Functional Tests Start: 07/12/19 13:55 Freq: Status: Active Protocol: Document 07/12/19 13:00 HH (Rec: 07/12/19 15:46 HH [email or web address]) Functional Tests Five Times Sit to Stand Test Score 21 PT-OP-F Manual Assessment Start: 07/12/19 13:55 Freq: Status: Active Protocol: Document 07/12/19 13:00 HH (Rec: 07/12/19 14:30 HH [email or web address]) Manual Assessments Soft Tissue Assessment Soft Tissue Mobility Assessment significant tenderness to pressure below R SIJ and piriformis PT-OP-H Neuro Start: 07/12/19 13:55 Freq: Status: Active Protocol: Document 07/12/19 13:00 HH (Rec: 07/12/19 14:30 HH [email or web address]) Sensation Evaluation Gross Sensation Gross Sensation Right LE Impaired Dermatome Impairments L5,S1 Comments Summary Comments decreased sensation to LT and pressure at lateral lower leg and R big toe. Deep Tendon Reflex & Clonus Assessment Deep Tendon Reflex Bilateral Achilles Deep Tendon Reflex 1+ Diminished Bilateral Patellar Deep Tendon Reflex 1+ Diminished PT-OP-J Posture/Palpation/Skin Start: 07/12/19 13:55 Freq: Status: Active Protocol: Document 07/12/19 13:00 HH (Rec: 07/12/19 14:30 [email or web address]) Posture Evaluation Position Standing Evaluation View Lateral T-Spine Posture Increased Kyphosis L-Spine Posture Increased Lordosis Weight Distribution Weight Shifted Anterior PT-OP-M Strength Start: 07/12/19 13:55 Freq: Status: Active Protocol: Document 07/12/19 13:00 HH (Rec: 07/12/19 14:30 [email or web address]) Hip Strength Hip Manual Muscle Testing Left Flexion (L2) 4+ Good+ Extension (S1) 4 Good Abduction 4+ Good+ Adduction 4+ Good+ External Rotation 4+ Good+ Internal Rotation 4+ Good+ Right Flexion (L2) 4- Good- Extension (S1) 3+ Fair+ Abduction 3+ Fair+ Adduction 4 Good External Rotation 3+ Fair+ Internal Rotation 3+ Fair+ Knee Strength Knee Manual Muscle Testing Left Flexion (S2) 4+ Good+ Extension (L3) 4+ Good+ Right Flexion (S2) 3+ Fair+ Extension (L3) 4 Good Comments increased R back pain during resisted R knee flexion Ankle/Foot Strength Ankle and Foot Manual Muscle Testing Left Dorsiflexion (L4) 4+ Good+ Plantarflexion (S1) 4+ Good+ Inversion 4+ Good+ Eversion (S1) 4+ Good+ Right Dorsiflexion (L4) 4- Good- Plantarflexion (S1) 4- Good- Inversion 4 Good Eversion (S1) 4 Good PT-OP-Q Treatments Start: 07/12/19 13:55 Freq: Status: Active Protocol: Document 12/06/19 08:16 HH (Rec: 12/06/19 09:10 [id number]) Cardio Equipment Elliptical Duration (Minutes) 5 Resistance 5 Other w/o SI belt Gym Equipment Shuttle Recovery Unilateral Squats Resistance #50-62 Shuttle Recovery Platform Stable Reps/Time 10 x2 Therapeutic Exercises Supine Exercises bridge Supine Exercise Name full range bridging Side bilateral Equipment Used with yellow band Reps/Minutes 10 x2 unilateral hip ER Side bilateral Equipment Used with yellow band Reps/Minutes 8 x2 hip jewelry mechanic Side bilateral Equipment Used yellow band Reps/Minutes 8 x2 SLR Supine Exercise Name with opposite LE straight Side bilateral Reps/Minutes 6x2 each side Comments slow active SLR with abdominal engagement Prone Exercises hip extension Prone Exercise Name prone on table Side bilateral Reps/Minutes 8 mins Comments to neutral hip extension Standing Exercises single leg stance Standing Exercise Name on blue airmat Side bilateral Reps/Minutes 10 sec x 5 each side standing hip hike Standing Exercise Name on step with grab bar for support Side bilateral Reps/Minutes 3 mins standing hip abd Side bilateral Reps/Minutes 3 mins Comments isolated hip abd slider Standing Exercise Name for standing hip extension Side bilateral Reps/Minutes 3 mins Comments isolated hip extension PT-OP-R Modalities Start: 07/12/19 13:55 Freq: Status: Active Protocol: Document 11/10/19 13:02 HH (Rec: 11/10/19 13:56 [id number]) Hot Pack/Cold Pack Treatment moist heat Patient Position Hooklying Treatment Duration (minutes) 10 Patient Tolerance Good PT-OP-T Assessment and Plan Start: 07/12/19 13:55 Freq: Status: Active Protocol: Document 12/06/19 08:16 HH (Rec: 12/06/19 09:10 [id number]) Physical Therapy Assessment Goals Return to hobby Impairment Pt is currently unable to do gardening work due to LBP Short Term Goal (STG) Pt will be able to start gardening >10 mins without increased LBP. STG Duration 5 weeks Fci Goal (LTG) 10/25 in progress: Pt has not attempted any gardening work since sx. Pt will be able to start gardening >20 mins without increased LBP. LTG Duration 10 weeks strength Impairment Pt demonstrates significant R LE weakness Short Term Goal (STG) Pt will be able to improve her RLE strength by 1/2 MMT grade Nurse Examiner Goal (LTG) 10/25 in progress: hip IR= 3/5 and ER = 3+/5 Pt will be able to improve her overall RLE strength by 1 MMT grade so she can bend over to picker / packer object >20 lbs from low surface without increased pain. LTG Duration 10 weeks activity tolerance Impairment Pt has increased LBP with sitting/ standing >15 mins Short Term Goal (STG) Pt will have no more than >5/ 10 LBP for sitting/ standing > 15 mins STG Duration 5 weeks Nurse Examiner Goal (LTG) 10/25 in progress: Pt is able to cesia about 30 [address] of driving but does have pain 3-5/10. Pain at [address] Pt will have no more than >3/ 10 LBP for sitting/ standing > 30 mins LTG Duration 10 weeks Oswestry LBP Impairment Pt scores 56 (40-59% impairment) on Oswestry LBP questionnaire Short Term Goal (STG) Pt will score <40 (20-39% impairment) on Oswestry LBP questionnaire Nurse Examiner Goal (LTG) 09/20 cont in progress: pt scores 62 today but she reports she has been reduced her medication by half since IE. Pt will score <20 (1-19% impairment) on Oswestry LBP questionnaire to improve her quality of life LTG Duration 10 weeks Assessment Summary Assessment Pt shows improvements with increased single leg and trunk stability for open chain ex , increased strength for single leg activites. Cont POC to focus on hip and trunk stability ex and sls strengthening. Physical Therapy Plan Next Visit Focus/Plan Next Note Type Treatment Note Next Visit Plan check SI belt tolerance cont progress trunk stability and hip stability work. focus more on SLS stability and strength
--- NOTE | 2019-12-08 09:07 | PT.OTN ---
Current Diagnoses Radiculopathy, lumbar region (12/08/19) Encounter for surgical aftercare following surgery on the nervous system (12/08/19) Physical Therapy Treatment Note PT-OP-A Visit Information Start: 07/12/19 13:55 Freq: Status: Active Protocol: Document 12/08/19 08:17 (Rec: 12/08/19 09:07 [id number]) Out-Patient Physical Therapy Visit Information Visit Information Visit Type Treatment Note Visit Start Time 08:17 Visit Stop Time 09:10 Total Visit Minutes 53 Visit Number 54 Number of BEAM DYER RECESSED VAT Visits 0 PT-OP-B Current Condition Start: 07/12/19 13:55 Freq: Status: Active Protocol: Document 07/12/19 13:00 HH (Rec: 07/12/19 14:30 [email or web address]) Current Condition History of Current Condition Onset Date Jun 02, 2019 Current Complaints s/p R L1-L2 partial laminectomy, LBP, radiating pain to R LE History of Current Condition Pt is a 64 yo female who presents to clinic today s/p s /p R L1-L2 partial laminectomy on 06/02/19 (5 1/2 weeks ago) at with Dr. Alonso. Pt currently follows do deep bending/ twisiting/ heavy lifting until 6 weeks post op. Pt stated her back pain and radiating RLE pain started from this December after she was lifting a ~60lbs object by twisting her back without taking steps. She is currently having ~7/10 pain in a daily basis which aggravated by staying in one position ( standing/sitting) for >15 mins . Changing position usually helps her symptoms but it affects her ability to focus on her current task at work. Pt does know all precautions and able to follow them safely since sx. She is currently in a tansitiont to reduce her pain med from oxycodone (daily ) to tramadol. She also has hx of chronic LBP with L4-L5 fusion in 2014, and she stated that Dr. Alonso suggested she might need another back surgery if this one with PT fails Future Testing and Treatments Planned Dr. Alonso suggested she might need another back surgery if this one with PT fails Treatment Goals Patient/Caregiver Goals 1. 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 To improve her core strength 3. 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 To be able to sail with her boat without pain. Prior Functional Status Baseline Function- ADL's Independent Baseline Function- Mobility Independent Baseline Function- Work/School able to sit/stand >1 hour Baseline Function- Recreation/Hobbies able to lift objects > 50 lbs without pain Current Functional Impairments (Reported) Functional Limitations- ADL's No Bending Lifting Twisting for 6 weeks (06/02), log roll for bed mobility Functional Limitations- Work/School unable to sit / stand > 15 minutes without increased pain Functional Limitations- Recreation/ unable to sail due to LBP/ Hobbies gardening PT-OP-C Subjective Start: 07/12/19 13:55 Freq: Status: Active Protocol: Document 12/08/19 08:17 HH (Rec: 12/08/19 09:07 [id number]) OP-PT Subjective Patient Comments Patient Comments My R butt bothered me quite a bit yesterday after last tx but i was able to recover today. I also sat in the car with my belt yesterday (1hr 20mins) and i didnt feel as bad. Patient Reported Progress Improving PT-OP-D Balance Start: 07/12/19 13:55 Freq: Status: Active Protocol: Document 07/12/19 13:00 HH (Rec: 07/12/19 14:30 [email or web address]) Balance Tests Single Limb Standing Single Limb- Right >30 s Single Limb- Left >30 s Other Other Balance Tests Performed increase R lateral shift and increased R leg pain during SLS on R PT-OP-E Functional Tests Start: 07/12/19 13:55 Freq: Status: Active Protocol: Document 07/12/19 13:00 HH (Rec: 07/12/19 15:46 [email or web address]) Functional Tests Five Times Sit to Stand Test Score 21 PT-OP-F Manual Assessment Start: 07/12/19 13:55 Freq: Status: Active Protocol: Document 07/12/19 13:00 HH (Rec: 07/12/19 14:30 [email or web address]) Manual Assessments Soft Tissue Assessment Soft Tissue Mobility Assessment significant tenderness to pressure below R SIJ and piriformis PT-OP-H Neuro Start: 07/12/19 13:55 Freq: Status: Active Protocol: Document 07/12/19 13:00 HH (Rec: 07/12/19 14:30 [email or web address]) Sensation Evaluation Gross Sensation Gross Sensation Right LE Impaired Dermatome Impairments L5,S1 Comments Summary Comments decreased sensation to LT and pressure at lateral lower leg and R big toe. Deep Tendon Reflex & Clonus Assessment Deep Tendon Reflex Bilateral Achilles Deep Tendon Reflex 1+ Diminished Bilateral Patellar Deep Tendon Reflex 1+ Diminished PT-OP-J Posture/Palpation/Skin Start: 07/12/19 13:55 Freq: Status: Active Protocol: Document 07/12/19 13:00 (Rec: 07/12/19 14:30 [email or web address]) Posture Evaluation Position Standing Evaluation View Lateral T-Spine Posture Increased Kyphosis L-Spine Posture Increased Lordosis Weight Distribution Weight Shifted Anterior PT-OP-M Strength Start: 07/12/19 13:55 Freq: Status: Active Protocol: Document 07/12/19 13:00 HH (Rec: 07/12/19 14:30 [email or web address]) Hip Strength Hip Manual Muscle Testing Left Flexion (L2) 4+ Good+ Extension (S1) 4 Good Abduction 4+ Good+ Adduction 4+ Good+ External Rotation 4+ Good+ Internal Rotation 4+ Good+ Right Flexion (L2) 4- Good- Extension (S1) 3+ Fair+ Abduction 3+ Fair+ Adduction 4 Good External Rotation 3+ Fair+ Internal Rotation 3+ Fair+ Knee Strength Knee Manual Muscle Testing Left Flexion (S2) 4+ Good+ Extension (L3) 4+ Good+ Right Flexion (S2) 3+ Fair+ Extension (L3) 4 Good Comments increased R back pain during resisted R knee flexion Ankle/Foot Strength Ankle and Foot Manual Muscle Testing Left Dorsiflexion (L4) 4+ Good+ Plantarflexion (S1) 4+ Good+ Inversion 4+ Good+ Eversion (S1) 4+ Good+ Right Dorsiflexion (L4) 4- Good- Plantarflexion (S1) 4- Good- Inversion 4 Good Eversion (S1) 4 Good PT-OP-Q Treatments Start: 07/12/19 13:55 Freq: Status: Active Protocol: Document 12/08/19 08:17 (Rec: 12/08/19 09:07 [id number]) Gym Equipment Cable Column (Body Solid) mid scap row Details squat position Reps/Time 20 lbs x 8 x 2 Therapeutic Exercises Supine Exercises bridge Supine Exercise Name full range bridging Side bilateral Equipment Used with yellow band Reps/Minutes 10 x2 hip truck loader and unloader Side bilateral Equipment Used yellow band Reps/Minutes 8 x2 Standing Exercises crab walk Side bilateral Equipment Used yellow band at knees Reps/Minutes 20 ft x 2 standing hip ext Standing Exercise Name band on knees Side bilateral Resistance yellow band Reps/Minutes 12 each side without band, then with band Comments pain standing on RLE but reduced with yellow band hip hinge Standing Exercise Name with knee out, neutral spine Side bilateral Resistance yellow band at knees Reps/Minutes 10 x2 Comments denied discomfort Manual Therapy Treatment Soft Tissue Mobilization R glutes Mobilization Type Sustained Pressure,Trigger Point Release Intensity/Depth Moderate Body Position Sidelying Comments SI joint region PT-OP-R Modalities Start: 07/12/19 13:55 Freq: Status: Active Protocol: Document 12/08/19 08:17 (Rec: 12/08/19 09:07 [id number]) Hot Pack/Cold Pack Treatment moist heat Location lumbar Patient Position Hooklying Treatment Duration (minutes) 10 Patient Tolerance Good PT-OP-T Assessment and Plan Start: 07/12/19 13:55 Freq: Status: Active Protocol: Document 12/08/19 08:17 (Rec: 12/08/19 09:07 [id number]) Physical Therapy Assessment Assessment Summary Assessment Pt has a slight flare up after hip ex from last tx but able to recover. Pt seems to have difficulty for single leg stance activites due to pressure at her R hip. Provided resistance while single leg hip ext today and seems to improve her symptoms. Physical Therapy Plan Next Visit Focus/Plan Next Note Type Treatment Note Next Visit Plan check SI belt tolerance cont progress trunk stability and hip stability work. focus more on SLS stability and strength
--- NOTE | 2019-12-13 09:03 | PT.OTN ---
Current Diagnoses Radiculopathy, lumbar region (12/13/19) Encounter for surgical aftercare following surgery on the nervous system (12/13/19) Physical Therapy Treatment Note PT-OP-A Visit Information Start: 07/12/19 13:55 Freq: Status: Active Protocol: Document 12/13/19 08:15 (Rec: 12/13/19 09:02 [id number]) Out-Patient Physical Therapy Visit Information Visit Information Visit Type Treatment Note Visit Start Time 08:15 Visit Stop Time 09:00 Total Visit Minutes 45 Visit Number 26/54 Number of HR ASSISTANT Visits 0 PT-OP-B Current Condition Start: 07/12/19 13:55 Freq: Status: Active Protocol: Document 07/12/19 13:00 HH (Rec: 07/12/19 14:30 [email or web address]) Current Condition History of Current Condition Onset Date Jun 02, 2019 Current Complaints s/p R L1-L2 partial laminectomy, LBP, radiating pain to R LE History of Current Condition Pt is a 64 yo female who presents to clinic today s/p s /p R L1-L2 partial laminectomy on 06/02/19 (5 1/2 weeks ago) at with Dr. Alonso. Pt currently follows do deep bending/ twisiting/ heavy lifting until 6 weeks post op. Pt stated her back pain and radiating RLE pain started from this December after she was lifting a ~60lbs object by twisting her back without taking steps. She is currently having ~7/10 pain in a daily basis which aggravated by staying in one position ( standing/sitting) for >15 mins . Changing position usually helps her symptoms but it affects her ability to focus on her current task at work. Pt does know all precautions and able to follow them safely since sx. She is currently in a tansitiont to reduce her pain med from oxycodone (daily ) to tramadol. She also has hx of chronic LBP with L4-L5 fusion in 2014, and she stated that Dr. Alonso suggested she might need another back surgery if this one with PT fails Future Testing and Treatments Planned Dr. Alonso suggested she might need another back surgery if this one with PT fails Treatment Goals Patient/Caregiver Goals 1. 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 To be able to sail with her boat without pain. Prior Functional Status Baseline Function- ADL's Independent Baseline Function- Mobility Independent Baseline Function- Work/School able to sit/stand >1 hour Baseline Function- Recreation/Hobbies able to lift objects > 50 lbs without pain Current Functional Impairments (Reported) Functional Limitations- ADL's No Bending Lifting Twisting for 6 weeks (06/02), log roll for bed mobility Functional Limitations- Work/School unable to sit / stand > 15 minutes without increased pain Functional Limitations- Recreation/ unable to sail due to LBP/ Hobbies gardening PT-OP-C Subjective Start: 07/12/19 13:55 Freq: Status: Active Protocol: Document 12/13/19 08:15 HH (Rec: 12/13/19 09:02 [id number]) OP-PT Subjective Patient Comments Patient Comments Im going to have injection on my back on Thursday. Doing hip hike and standing on R side tends to aggravate my R hip pain. Patient Reported Progress Same PT-OP-D Balance Start: 07/12/19 13:55 Freq: Status: Active Protocol: Document 07/12/19 13:00 HH (Rec: 07/12/19 14:30 HH [email or web address]) Balance Tests Single Limb Standing Single Limb- Right >30 s Single Limb- Left >30 s Other Other Balance Tests Performed increase R lateral shift and increased R leg pain during SLS on R PT-OP-E Functional Tests Start: 07/12/19 13:55 Freq: Status: Active Protocol: Document 07/12/19 13:00 HH (Rec: 07/12/19 15:46 HH [email or web address]) Functional Tests Five Times Sit to Stand Test Score 21 PT-OP-F Manual Assessment Start: 07/12/19 13:55 Freq: Status: Active Protocol: Document 07/12/19 13:00 HH (Rec: 07/12/19 14:30 HH [email or web address]) Manual Assessments Soft Tissue Assessment Soft Tissue Mobility Assessment significant tenderness to pressure below R SIJ and piriformis PT-OP-H Neuro Start: 07/12/19 13:55 Freq: Status: Active Protocol: Document 07/12/19 13:00 HH (Rec: 07/12/19 14:30 HH [email or web address]) Sensation Evaluation Gross Sensation Gross Sensation Right LE Impaired Dermatome Impairments L5,S1 Comments Summary Comments decreased sensation to LT and pressure at lateral lower leg and R big toe. Deep Tendon Reflex & Clonus Assessment Deep Tendon Reflex Bilateral Achilles Deep Tendon Reflex 1+ Diminished Bilateral Patellar Deep Tendon Reflex 1+ Diminished PT-OP-J Posture/Palpation/Skin Start: 07/12/19 13:55 Freq: Status: Active Protocol: Document 07/12/19 13:00 HH (Rec: 07/12/19 14:30 [email or web address]) Posture Evaluation Position Standing Evaluation View Lateral T-Spine Posture Increased Kyphosis L-Spine Posture Increased Lordosis Weight Distribution Weight Shifted Anterior PT-OP-M Strength Start: 07/12/19 13:55 Freq: Status: Active Protocol: Document 07/12/19 13:00 (Rec: 07/12/19 14:30 [email or web address]) Hip Strength Hip Manual Muscle Testing Left Flexion (L2) 4+ Good+ Extension (S1) 4 Good Abduction 4+ Good+ Adduction 4+ Good+ External Rotation 4+ Good+ Internal Rotation 4+ Good+ Right Flexion (L2) 4- Good- Extension (S1) 3+ Fair+ Abduction 3+ Fair+ Adduction 4 Good External Rotation 3+ Fair+ Internal Rotation 3+ Fair+ Knee Strength Knee Manual Muscle Testing Left Flexion (S2) 4+ Good+ Extension (L3) 4+ Good+ Right Flexion (S2) 3+ Fair+ Extension (L3) 4 Good Comments increased R back pain during resisted R knee flexion Ankle/Foot Strength Ankle and Foot Manual Muscle Testing Left Dorsiflexion (L4) 4+ Good+ Plantarflexion (S1) 4+ Good+ Inversion 4+ Good+ Eversion (S1) 4+ Good+ Right Dorsiflexion (L4) 4- Good- Plantarflexion (S1) 4- Good- Inversion 4 Good Eversion (S1) 4 Good PT-OP-Q Treatments Start: 07/12/19 13:55 Freq: Status: Active Protocol: Document 12/13/19 08:15 (Rec: 12/13/19 09:02 [id number]) Cardio Equipment Elliptical Duration (Minutes) 5 Resistance 5 Other w/ SI belt Therapeutic Exercises Supine Exercises bridge Supine Exercise Name full range bridging Side bilateral Equipment Used with yellow band Reps/Minutes 10 x2 unilateral hip ER Side bilateral Equipment Used with yellow band Reps/Minutes 8 x2 Comments plus heel push off. hip psychiatric specialist Side bilateral Equipment Used yellow band Reps/Minutes 8 x2 Sidelying Exercises clam shell Side bilateral Equipment Used yellow band Reps/Minutes 10 x1 Standing Exercises crab walk Side bilateral Equipment Used yellow band at knees Reps/Minutes 20 ft x 2 Comments hip hinge position standing hip ext Side bilateral Reps/Minutes 12 x 2 Comments without pain after crab wallk hip hinge Standing Exercise Name with knee out, neutral spine Side bilateral Resistance bosu ball Reps/Minutes 10 x2 Comments denied discomfort SLS Reps/Minutes 60 sec each Manual Therapy Treatment Soft Tissue Mobilization R glutes Mobilization Type Sustained Pressure,Trigger Point Release Intensity/Depth Moderate Body Position Sidelying Comments SI joint region PT-OP-R Modalities Start: 07/12/19 13:55 Freq: Status: Active Protocol: Document 12/08/19 08:17 HH (Rec: 12/08/19 09:07 [id number]) Hot Pack/Cold Pack Treatment moist heat Location lumbar Patient Position Hooklying Treatment Duration (minutes) 10 Patient Tolerance Good PT-OP-T Assessment and Plan Start: 07/12/19 13:55 Freq: Status: Active Protocol: Document 12/13/19 08:15 HH (Rec: 12/13/19 09:02 [id number]) Physical Therapy Assessment Goals Return to hobby Impairment Pt is currently unable to do gardening work due to LBP Short Term Goal (STG) Pt will be able to start gardening >10 mins without increased LBP. STG Duration 5 weeks Wire Inserter Goal (LTG) 10/25 in progress: Pt has not attempted any gardening work since sx. Pt will be able to start gardening >20 mins without increased LBP. 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 LTG Duration 10 weeks activity tolerance Impairment Pt has increased LBP with sitting/ standing >15 mins Short Term Goal (STG) Pt will have no more than >5/ 10 LBP for sitting/ standing > 15 mins STG Duration 5 weeks Wire Inserter Goal (LTG) 10/25 in progress: Pt is able to cesia about [address] but does have pain 3-5/10. Pain at [address]. Pt will have no more than >3/ 10 LBP for sitting/ standing > 30 mins LTG Duration 10 weeks Oswestry LBP Impairment Pt scores 56 (40-59% impairment) on Oswestry LBP questionnaire Short Term Goal (STG) Pt will score <40 (20-39% impairment) on Oswestry LBP questionnaire Wire Inserter Goal (LTG) 09/20 cont in progress: pt scores 62 today but she reports she has been reduced her medication by half since IE. Pt will score <20 (1-19% impairment) on Oswestry LBP questionnaire to improve her quality of life LTG Duration 10 weeks Assessment Summary Assessment Pt cont to show improve exercise tolerance. improve glute engagement and strength. Pt's SLS also improved to 60 secs with better overall stability. Pt cesia session well with minimal discomfort. Physical Therapy Plan Next Visit Focus/Plan Next Note Type Treatment Note Next Visit Plan check SI belt tolerance cont progress trunk stability and hip stability work. focus more on SLS stability and strength
--- NOTE | 2020-04-05 08:34 | PT.OPDS ---
Current Diagnoses Radiculopathy, lumbar region (12/13/19) Encounter for surgical aftercare following surgery on the nervous system (12/13/19) Visit Care Team Role Provider Type Erinn Gresham PA-C Primary Care Provider Advanced Crm Consultant Specialty: Medical Address: [address] [place] [address], [address], [place], [address] Email: [email or web address] Lin Armijo PA-C Attending Provider Non-Staff Specialty: Nursing Address: [facility] [place] [address], [address], [place], [address] Email: Visit Number Visit Number Discharge Summary PT-OP-B Current Condition Start: 07/12/19 13:55 Freq: Status: Active Protocol: Document 07/12/19 13:00 (Rec: 07/12/19 14:30 [email or web address]) Current Condition History of Current Condition Onset Date Jun 02, 2019 Current Complaints s/p R L1-L2 partial laminectomy, LBP, radiating pain to R LE History of Current Condition Pt is a 64 yo female who presents to clinic today s/p s /p R L1-L2 partial laminectomy on 06/02/19 (5 1/2 weeks ago) at with Dr. Alonso. Pt currently follows do deep bending/ twisiting/ heavy lifting until 6 weeks post op. Pt stated her back pain and radiating RLE pain started from this December after she was lifting a ~60lbs object by twisting her back without taking steps. She is currently having ~7/10 pain in a daily basis which aggravated by staying in one position ( standing/sitting) for >15 mins . Changing position usually helps her symptoms but it affects her ability to focus on her current task at work. Pt does know all precautions and able to follow them safely since sx. She is currently in a tansitiont to reduce her pain med from oxycodone (daily ) to tramadol. She also has hx of chronic LBP with L4-L5 fusion in 2014, and she stated that Dr. Alonso suggested she might need another back surgery if this one with PT fails Future Testing and Treatments Planned Dr. Alonso suggested she might need another back surgery if this one with PT fails Treatment Goals Patient/Caregiver Goals 1. 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 To improve her core strength 3. 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 To be able to sail with her boat without pain. Prior Functional Status Baseline Function- ADL's Independent Baseline Function- Mobility Independent Baseline Function- Work/School able to sit/stand >1 hour Baseline Function- Recreation/Hobbies able to lift objects > 50 lbs without pain Current Functional Impairments (Reported) Functional Limitations- ADL's No Bending Lifting Twisting for 6 weeks (06/02), log roll for bed mobility Functional Limitations- Work/School unable to sit / stand > 15 minutes without increased pain Functional Limitations- Recreation/ unable to sail due to LBP/ Hobbies gardening PT-OP-C Subjective Start: 07/12/19 13:55 Freq: Status: Active Protocol: Document 04/05/20 08:33 (Rec: 04/05/20 08:34 [email or web address]) OP-PT Subjective Patient Comments Patient Comments Patient is moving out of town and requested to be d/c from therapy. PT-OP-T Assessment and Plan Start: 07/12/19 13:55 Freq: Status: Active Protocol: Document 04/05/20 08:33 HH (Rec: 04/05/20 08:34 [email or web address]) Physical Therapy Plan Discharge Physical Therapy Discharge Reasons Patient Request Discharge Comments Patient is moving out of town and requested to be d/c from therapy.
== END 2020-05-31 09:09 ==
LOC: PHYS 08:15
PROVIDERS: PCP Physician Assistant; Visit Provider Physician Assistant
DX: M54.16 Radiculopathy, lumbar region (principal); Z48.811 Encounter for surgical aftercare following surgery on the nervous system
CPT/HCPCS: 29799; 97010; 97014; 97110; 97140; 97162; 97530; 97535; G0283

== ENCOUNTER → 2020-01-09 08:21 | Outpatient (CLI) | payer OTHER, SELFPAY ==
--- NOTE | 2020-01-09 08:24 | DI.US.S_ITS ---
ULTRASOUND OF LEFT BREAST: 01/09/2020 CLINICAL: Pain and palpable areas of masses and tenderness by patient. No prior exams were available for comparison. Real-time ultrasound of the left breast was performed. Kenyon scale images of the real-time examination were reviewed. No significant abnormalities were seen sonographically in the left breast. Specifically, no finding to correspond to the patient's 2:00 pain or 9:00 palpable abnormality. IMPRESSION: PROBABLY BENIGN A follow-up left mammogram in 6 months is recommended to demonstrate stability of the increasingly prominent area of glandular tissue in the 9:00 position seen only by mammogram. No sonographic evidence of malignancy. Findings and recommendations were conveyed to the patient at time of exam. This exam was interpreted at Station ID: [id number]. Electronically Signed By: Mallorie diaz/:01/09/2020 10:18:30 letter sent: Followup Recommended Ultrasound BI-RADS: 3 Probably benign
--- NOTE | 2020-01-09 08:24 | DI.MG.S_ITS ---
BILATERAL DIGITAL DIAGNOSTIC MAMMOGRAM 3D/2D: 01/09/2020 CLINICAL: Painfull lumpy breasts. Comparison is made to exams dated: 02/05/2019 mammogram, 12/24/2017 mammogram, 11/21/2016 mammogram, and 10/12/2015 mammogram - [facility]. The tissue of both breasts is heterogeneously dense. This may lower the sensitivity of mammography. There is an irregular equal density asymmetry in the left breast at 9 o'clock middle depth. This is seen in additional views. This is more prominent and correlates as palpated. No other significant masses, calcifications, or other findings are seen in either breast. Specifically, no finding to correspond to the patient's palpable abnormalities in the right upper outer breast, or in the area of left breast pain. IMPRESSION: INCOMPLETE: NEEDS ADDITIONAL IMAGING EVALUATION The irregular equal density asymmetry in the left breast correlates to the palpable abnormality and is indeterminate. An ultrasound is recommended. There are no abnormalities seen in the right breast to correspond with the palpable nodularities in the posterior depth in the upper outer quadrant, however, ultrasound is recommended. There is no abnormality seen in the left breast to correspond with the pain at 2 o'clock, however, ultrasound is recommended. Bilateral breast ultrasound was performed immediately following this exam. This exam was interpreted at Station ID: [id number]. NOTE: For mammograms, a report in lay terms will be sent to the patient. Approximately 15% of breast malignancies will not be visualized mammographically. In the management of a palpable breast mass, a negative mammogram must not discourage biopsy of a clinically suspicious lesion. Electronically Signed By: Mallorie diaz/:01/09/2020 10:03:42 ACR BI-RADS Category 0: Incomplete [id number]
--- NOTE | 2020-01-09 08:24 | DI.US.S_ITS ---
ULTRASOUND OF RIGHT BREAST: 01/09/2020 CLINICAL: Focal right breast pain with palpable masses by patient. Comparison is made to exams dated: 02/05/2019 mammogram, 12/24/2017 mammogram, and 11/21/2016 mammogram - [facility]. Real-time ultrasound of the right breast was performed. Kenyon scale images of the real-time examination were reviewed. No significant abnormalities were seen sonographically in the right breast. Specifically, no finding to correspond to the patient's palpable abnormality. IMPRESSION: NEGATIVE There is no sonographic correlate to the patient's palpable abnormality and no evidence of malignancy. Return to annual mammogram screening schedule is recommended. Findings and recommendations were conveyed to the patient at time of exam. This exam was interpreted at Station ID: [id number]. Electronically Signed By: Mallorie diaz/:01/09/2020 10:09:28 letter sent: Normal Exam Ultrasound BI-RADS: 1 Negative
== END ==
PROVIDERS: PCP Nurse Practitioner Family; Referring Provider Nurse Practitioner Family; Visit Provider Nurse Practitioner Family
DX: R92.8 Other abnormal and inconclusive findings on diagnostic imaging of breast; N64.4 Mastodynia; N63.11 Unspecified lump in the right breast, upper outer quadrant; N63.25 Unspecified lump in the left breast, overlapping quadrants
CPT/HCPCS: 76642; 77066; G0279

== ENCOUNTER → 2020-04-20 08:38 | Outpatient (CLI) | payer MEDICARE, BC, SELFPAY ==
[2020-04-20 09:35] LABS: Hematocrit 35.2 % (36-46); White Blood Cell Count 2.9 X10^3/uL (4.5-11.0)
[2020-04-20 10:47] LABS: Alanine Aminotransferase 29 IU/L (<35); Albumin 4.5 g/dL (3.5-5.0); Albumin Globulin Ratio 2.1 (1.0-2.8); Alkaline Phosphatase 50 U/L (38-126); Aspartate Aminotransferase 29 IU/L (14-36); Bilirubin Total 0.9 mg/dL (0.2-1.3); Blood Urea Nitrogen 8 mg/dL (7-17); Calcium 9.5 mg/dL (8.4-10.2); Carbon Dioxide 25 mmol/L (22-32); Chloride 98 mmol/L (98-107); Cholesterol 251 mg/dL (140-199); Estimated Glomerular Filt Rate > 60.0 mL/min (>60); Globulin 2.1 g/dL (1.7-4.1); Glucose 97 mg/dL (80-110); HDL Cholesterol 100 mg/dL (40-60); HEMOLYSIS < 15 (0-50); LDL Cholesterol Calculated 135 mg/dL (<100); Potassium 4.1 mmol/L (3.4-5.1); Sodium 131 mmol/L (137-145); Total Protein 6.6 g/dL (6.3-8.2); Triglycerides 79 mg/dL (35-150)
[2020-04-20 13:43] LABS: Add Manual Diff / Slide Review NO; Basophils Absolute Auto 0 /uL (0-100); Basophils Percent Auto 0.7 % (0-2); Eosinophils Absolute Auto 100 /uL (0-450); Lymphocytes Absolute Auto 1000 /uL (1100-4500); Lymphocytes Percent Auto 33.5 % (25-40); Monocytes Absolute Auto 300 /uL (0-900); Monocytes Percent Auto 11.7 % (3-14); Neutrophils Absolute Auto 1500 /uL (1500-7000); Neutrophils Percent Auto 51.1 % (50-75)
[2020-04-20 13:45] LABS: Mean Corpuscular HGB Conc 34.1 % (30-36); Mean Corpuscular Volume 91.1 fL (80-100); Platelet Count 200 X10^3/uL (150-400); Red Blood Cell Count 3.87 X10^6/uL (4.0-5.2); Red Cell Distribution Width 11.8 % (11.6-14.8)
== END ==
PROVIDERS: PCP Nurse Practitioner Family; Referring Provider Nurse Practitioner Family; Visit Provider Nurse Practitioner Family
DX: Z13.6 Encounter for screening for cardiovascular disorders (principal); R79.9 Abnormal finding of blood chemistry, unspecified; D50.9 Iron deficiency anemia, unspecified
CPT/HCPCS: 80053; 80061; 85025

== ENCOUNTER → 2020-05-23 16:20 | Oncology outpatient (ONC) | payer MEDICARE, BC, SELFPAY ==
[2020-05-23 15:53] VITALS: BP 116/73; PULSE 53; RESP 16; TEMP 36.8; O2SAT 98
--- NOTE | 2020-05-23 16:12 | P.CONONC_ITS ---
History of Present Illness - Data of Consult Primary Care Provider: CARSON Morfin - Consult Narrative Narrative: Jennifer Gomez is a 65 year old female referred for further evaluation of abnormal blood counts. Review of her records shows that in December of 2008 she had hemoglobin of 10.7 white count of 4200 (lower limit of normal 4500). Since then she has had multiple blood count showing a variable anemia but a consistently low white count. Her lowest white count value previously was in November of 2016 at 3500. More recently on April 20 she had lab work that showed hemoglobin of 12.0 hematocrit 35.2 with normal red cell indices and normal RDW. Platelets were 200,000 white count 2900 with a normal differential and ANC of 1500. Chemistry panel from that date showed a sodium 131 otherwise normal. Because of her low white count she is now referred for hematology consultation. From her perspective she is feeling fine. She denies any new pain, bleeding, localized weakness, fever, chills, nausea, vomiting, mouth sores, trouble swallowing, anorexia, unintended weight loss, cough, shortness of breath, lumps or bumps, alopecia, or skin rash. She has some occasional joint pains which she attributes to arthritis. She has chronic back pain which is been present for 2 years and for which she has had surgical intervention. All other systems are negative. Past medical history 1. She had a heart murmur as a child 2. DJD 3. She has a long history of anemia which she states was present as a child. She has had a low white count intermittently for at least the last 11 years. 4. She denies high blood pressure, diabetes, rheumatic fever, tuberculosis, heart attacks, strokes, stomach ulcers, pneumonia or any kind of cancer 5. Previous surgeries include a benign breast mass in 2002, uterine fibroid embolization in 2008,, L3-4 fusion in 2013, L1 to back surgery in 2019 for bone spurs creating nerve problems. 6. Her father had melanoma. There is no other family history of cancer. Her maternal grandfather was a ?bleeder? and she has no other information about this. Family history is otherwise negative for any blood disorders. 7. 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 She is not a smoker and has 1-2 drinks a day. She is accompanied by is very supportive. She has family and occluding 2 grandchildren in the area but splits her time between here and [facility]. 8. She does the is allergic to tobramycin and adhesive tape 9. Current medications include albuterol inhaler, as needed benzonatate, calcium, vitamin-D, flaxseed oil, meloxicam 15 mg daily (which she has been taking since 2015), a multiple vitamin, fish oil, as needed oxycodone, and methocarbamol 750 mg 4 times a day as needed which she has been taking since May of 2019. CC: Ryan Au MD Home Medications and Allergies Home Medications Medication Instructions Recorded Confirmed Type albuterol sulfate 90 mcg/actuation 1 inh INHALATION Q4-6H PRN #18 gram 08/20/18 04/13/20 Rx aerosol inhaler varicella-zoster [id number] (PF) 50 50 mcg IM ONCE #1 each 10/27/18 04/13/20 Rx mcg/0.5 mL IM susp, kit Calcium/Vitamin D3 See Rx Instructions .ROUTE .COMPLEX 05/10/19 04/13/20 History Flaxseed Oil See Rx Instructions .ROUTE .COMPLEX 05/10/19 04/13/20 History [place] 3 Fish Oil See Rx Instructions .ROUTE .COMPLEX 05/10/19 04/13/20 History multivitamin 1 tab PO DAILY 05/10/19 04/13/20 History oxycodone 5 mg tablet 5 mg PO Q4-6H PRN #60 tab 06/07/19 04/13/20 Rx benzonatate 100 mg capsule 100 mg PO BID-TID PRN #60 cap 07/01/19 04/13/20 Rx tramadol 50 mg tablet 25 mg PO DAILY tab 12/29/19 04/13/20 History meloxicam 15 mg tablet 15 mg PO DAILY #90 tab 02/29/20 04/13/20 Rx methocarbamol 750 mg tablet 750 mg PO QID PRN #120 tab 04/04/20 04/13/20 Rx Allergies Allergy/AdvReac Type Severity Reaction Status Date / Time tobramycin [TOBRAMYCIN] Allergy Severe ANAPHYLACTI Verified 04/13/20 15:07 C adhesive Allergy Intermediate blisters. Verified 04/13/20 15:07 Okay to use bandaids for a short period walnut AdvReac Blister Verified 05/23/20 15:56 acrylic Allergy Mild Rash Uncoded 04/13/20 15:07 Medical History - Medical, Surgical, Family History Medical History: Medical History (Last Updated 04/20/20 @ 13:52 by CARSON Morfin) Elevated BUN Encounter for routine gynecological examination Leukopenia Painful lumpy breasts Surgical History: Surgical History Status post surgery Onset Date: 07/21/09 - Social History Smoking Status: Former smoker (I smoked as a teenager for about a year.) Review of Systems - Patient Self-Reported Symptoms SR Musculoskeletal issues: Joint pain or swelling Exam Vital signs: Vital Signs Temp Pulse Resp BP Pulse Ox 05/23/20 15:53 98.2 F 53 L 16 116/73 98 Intake and Output 05/23/20 05/23/20 05/23/20 07:59 15:59 23:59 Other: Weight 82.2 kg Patient Weight 05/23/20 23:59 Weight 82.2 kg Narrative: She was awake, alert and oriented x3. She was fully ambulatory and in no acute distress. There was no palpable lymphadenopathy in the cervical, supraclavicular, epitrochlear, axillary, inguinal or femoral regions. Lungs were clear without wheezes or rales. Heart showed a 1/6 systolic ejection murmur without gallop, or rub abdomen was soft and nontender without any palpable hepatosplenomegaly or masses. There was no evidence of phlebitis in the lower extremities. Results - Imaging Additional studies: Procedures Injection of anesthetic into spinal canal for analgesia (10/25/10) Injection of other agent into spinal canal (10/25/10) Injection of steroid (10/25/10) Assessment and Plan (1) Leukopenia Status: Acute Ms. Gomez has a mild anemia and leukopenia. She has adequate neutrophils at 1500. She has a long history of low counts and I explained that the levels can vary on a day-to-day basis and she may have simply been drawn when the count was low. Will repeat a CBC with a manual diff and also a peripheral smear review. She has gone gluten free the last several years and also has tried to eliminate red meat from her diet. She will check a vitamin B12 and folate level. She does not have a macrocytosis or a pancytopenia but nutritional deficiencies occur with an increased frequency with advancing age, are easily diagnosed and easily treated. She also started methocarbamol in May of 2019. This is her only new medication in the last year. Methocarbamol can be associated with leukopenia and if her screening labs are unrevealing and her leukopenia is persistent, discontinuation of methocarbamol would be an appropriate next step. We also discussed the fact that she may have developed an underlying, new hematologic condition such as a myelodysplastic syndrome. The findings are relatively mild but if we were going to pursue this further, a bone marrow examination would be the next step. For now she was comfortable proceeding with screening laboratory studies. She will call back in about 2 weeks for results since she will be in [place] at that time. A decision on whether not she needs any vitamin supplementation or showed undertake methocarbamol withdrawal will be made at that time. She will call if any other problems or issues should arise in the interim. She and her had several questions which were answered in detail. I personally spent 31 minutes in today's [id number] visit with greater than 50% of the time spent in counseling regarding the issues outlined above. Impression: 1. Anemia and leukopenia, variable, dating to at least December of 2008 2. Labs from April 20 showing a hemoglobin of 12.0 and white count of 2900 3. She started methocarbamol in May of 2019. She has no other new medications 4. Patient is clinically well with no concerning findings on her history or physical exam and no symptoms of infection or bleeding 5. She is trying to follow a gluten free diet and eats minimal amounts of red meat Recommendations: 1. Vitamin B12 and folate levels and reticulocyte count will be obtained today 2. Repeat CBC with manual differential and peripheral smear review 3. She will call back for these results 4. A trial of discontinuation of methocarbamol would be appropriate if her leukopenia persists in screening labs are unrevealing 5. Decision on observation versus proceeding to a bone marrow examination would be dependent upon the outcome of the above interventions I would like to think CARSON Morfin for referring this very pleasant and interesting patient.
[2020-05-23 16:45] LABS: Hematocrit 33.5 % (36-46); Hemoglobin 11.3 g/dL (12.0-16.0); Mean Corpuscular HGB Conc 33.7 % (30-36); Mean Corpuscular Hemoglobin 31.2 PG (26-34); Mean Corpuscular Volume 92.3 fL (80-100); Platelet Count 217 X10^3/uL (150-400); Red Blood Cell Count 3.63 X10^6/uL (4.0-5.2); Red Cell Distribution Width 12.5 % (11.6-14.8); White Blood Cell Count 4.9 X10^3/uL (4.5-11.0)
[2020-05-23 17:00] LABS: Reticulocyte Count, Percent 1.5 % (1.06-2.63)
[2020-05-23 17:22] LABS: Neutrophils Absolute Manual 3038 /uL (3000-5900); Platelet Estimate Adequate on smear; RBC Morphology Normal Morphology; Total Cells Counted 100
[2020-05-23 17:58] LABS: Folate 8.7 ng/mL (2.76-20.0); Vitamin B12 413 pg/mL (239-931)
--- NOTE | 2020-06-01 14:52 | ONC.SCHED ---
Cancelled 06/06/[address] Au as patient is stuck in [place] with [employer]. Transferred to triage to discuss any possible way of getting some feedback on most recent lab results as we are not set up for tele-visits presently.
--- NOTE | 2020-06-04 14:33 | PC.NURSE ---
Addendum entered by Bob Estrada R.N. 06/05/20 15:47: Dr. Au recommends f/u with primary care provider in 6 months. All labs look normal. Original Note: [place], [place]. Hospital is about 5 miles from pt if lab work or other diagnostics need to be done. Making provider aware that pt would like to f/u but is stuck in [place].
--- NOTE | 2020-06-05 12:42 | ONC.PN ---
PN -Subjective Interval history: Ms. crump she also repeat CBC showed a normal white count of 6900 in a persistent, stable, mild anemia. B12 and folate levels were normal. She is unable to return for a follow-up visit since she is in [place]. We will contact her and let her know that she should have a CBC done every 6-12 months with her primary care provider. Although no specific return appointment has been scheduled to this office, be happy to see her again at any time in the future. - Patient Self-Reported Symptoms SR Musculoskeletal issues: Joint pain or swelling Home Medications and Allergies Home Medications Medication Instructions Recorded Confirmed Type albuterol sulfate 90 mcg/actuation 1 inh INHALATION Q4-6H PRN #18 gram 08/20/18 04/13/20 Rx aerosol inhaler varicella-zoster [id number] (PF) 50 50 mcg IM ONCE #1 each 10/27/18 04/13/20 Rx mcg/0.5 mL IM susp, kit Calcium/Vitamin D3 See Rx Instructions .ROUTE .COMPLEX 05/10/19 04/13/20 History Flaxseed Oil See Rx Instructions .ROUTE .COMPLEX 05/10/19 04/13/20 History [place] 3 Fish Oil See Rx Instructions .ROUTE .COMPLEX 05/10/19 04/13/20 History multivitamin 1 tab PO DAILY 05/10/19 04/13/20 History oxycodone 5 mg tablet 5 mg PO Q4-6H PRN #60 tab 06/07/19 04/13/20 Rx benzonatate 100 mg capsule 100 mg PO BID-TID PRN #60 cap 07/01/19 04/13/20 Rx tramadol 50 mg tablet 25 mg PO DAILY tab 12/29/19 04/13/20 History meloxicam 15 mg tablet 15 mg PO DAILY #90 tab 02/29/20 04/13/20 Rx methocarbamol 750 mg tablet 750 mg PO QID PRN #120 tab 04/04/20 04/13/20 Rx Allergies Allergy/AdvReac Type Severity Reaction Status Date / Time tobramycin [TOBRAMYCIN] Allergy Severe ANAPHYLACTI Verified 04/13/20 15:07 C adhesive Allergy Intermediate blisters. Verified 04/13/20 15:07 Okay to use bandaids for a short period walnut AdvReac Blister Verified 05/23/20 15:56 acrylic Allergy Mild Rash Uncoded 04/13/20 15:07 Exam Narrative: She was awake, alert and oriented x3. She was fully ambulatory and in no acute distress. There was no palpable lymphadenopathy in the cervical, supraclavicular, epitrochlear, axillary, inguinal or femoral regions. Lungs were clear without wheezes or rales. Heart showed a 1/6 systolic ejection murmur without gallop, or rub abdomen was soft and nontender without any palpable hepatosplenomegaly or masses. There was no evidence of phlebitis in the lower extremities. Results - Labs Laboratory Last Values WBC 4.9 X10^3/uL (4.5-11.0) 05/23/20 16: RBC 3.63 X10^6/uL (4.0-5.2) L 05/23/20 16: Hgb 11.3 g/dL (12.0-16.0) L 05/23/20 16:29 Hct 33.5 % (36-46) L 05/23/20 16: MCV 92.3 fL (80-100) 05/23/20 16: MCH 31.2 PG (26-34) 05/23/20 16: MCHC 33.7 % (30-36) 05/23/20 16: RDW 12.5 % (11.6-14.8) 05/23/20 16: Plt Count 217 X10^3/uL (150-400) 05/23/20 16: Total Counted 100 05/23/20 16: Seg Neutrophils % 62.0 % (38-70) 05/23/20 16: Lymphocytes % (Manual) 25.0 % (25-45) 05/23/20 16:29 Monocytes % (Manual) 10.0 % (2-11) 05/23/20 16:29 Eosinophils % (Manual) 2.0 % (2-4) 05/23/20 16:29 Basophils % (Manual) 1.0 % (0-1) 05/23/20 16: Neutrophils # (Manual) 3038 /uL (4836-9559) 05/23/20 16:29 Platelet Estimate Adequate on smear 05/23/20 16:29 RBC Morphology Normal morphology 05/23/20 16:29 Smear Path Review 05/23/20 16:29 Percent Retic 1.5 % (1.06-2.63) 05/23/20 16:29 Vitamin B12 413 pg/mL (239-931) 05/23/20 16:29 Folate 8.7 ng/mL (2.76-20.0) 05/23/20 16:29 - Imaging Additional studies: Procedures Injection of anesthetic into spinal canal for analgesia (10/25/10) Injection of other agent into spinal canal (10/25/10) Injection of steroid (10/25/10) Assessment and Plan (1) Leukopenia Status: Acute Ms. Gomez has a mild anemia and leukopenia. She has adequate neutrophils at 1500. She has a long history of low counts and I explained that the levels can vary on a day-to-day basis and she may have simply been drawn when the count was low. Will repeat a CBC with a manual diff and also a peripheral smear review. She has gone gluten free the last several years and also has tried to eliminate red meat from her diet. She will check a vitamin B12 and folate level. She does not have a macrocytosis or a pancytopenia but nutritional deficiencies occur with an increased frequency with advancing age, are easily diagnosed and easily treated. She also started methocarbamol in May of 2019. This is her only new medication in the last year. Methocarbamol can be associated with leukopenia and if her screening labs are unrevealing and her leukopenia is persistent, discontinuation of methocarbamol would be an appropriate next step. We also discussed the fact that she may have developed an underlying, new hematologic condition such as a myelodysplastic syndrome. The findings are relatively mild but if we were going to pursue this further, a bone marrow examination would be the next step. For now she was comfortable proceeding with screening laboratory studies. She will call back in about 2 weeks for results since she will be in [place] at that time. A decision on whether not she needs any vitamin supplementation or showed undertake methocarbamol withdrawal will be made at that time. She will call if any other problems or issues should arise in the interim. She and her had several questions which were answered in detail. I personally spent 31 minutes in today's [id number] visit with greater than 50% of the time spent in counseling regarding the issues outlined above. Impression: 1. Anemia and leukopenia, variable, dating to at least December of 2008 2. Labs from April 20 showing a hemoglobin of 12.0 and white count of 2900 3. She started methocarbamol in May of 2019. She has no other new medications 4. Patient is clinically well with no concerning findings on her history or physical exam and no symptoms of infection or bleeding 5. She is trying to follow a gluten free diet and eats minimal amounts of red meat Recommendations: 1. Vitamin B12 and folate levels and reticulocyte count will be obtained today 2. Repeat CBC with manual differential and peripheral smear review 3. She will call back for these results 4. A trial of discontinuation of methocarbamol would be appropriate if her leukopenia persists in screening labs are unrevealing 5. Decision on observation versus proceeding to a bone marrow examination would be dependent upon the outcome of the above interventions I would like to think CARSON Morfin for referring this very pleasant and interesting patient.
== END ==
PROVIDERS: PCP Nurse Practitioner Family; Referring Provider Nurse Practitioner Family; Visit Provider Internal Medicine
DX: D72.819 Decreased white blood cell count, unspecified (principal); D64.9 Anemia, unspecified
CPT/HCPCS: 36415; 82607; 82746; 85025; 85045; 99203; 99213